=== PATIENT | male | born 1975 | race Caucasian/White ===

== ENCOUNTER → 2017-12-26 09:46 | Outpatient (CLI) | payer OTHER, SELFPAY ==
[2017-12-26 12:41] LABS: Anion Gap 7 (5-15); BUN 23 mg/dL (7-18); BUN/Creat Ratio 19.7 RATIO (10-20); Calcium,Total 8.8 mg/dL (8.5-10.1); Chloride 103 mmol/L (98-107); Cholesterol 126 mg/dL (200); Creatinine, Serum 1.17 mg/dL (0.70-1.30); EST Glomerular Filtration Rate 73 mL/min (>60); Est Glom Filt Rate - Afr Amer 88 mL/min (>60); Glucose 89 mg/dL (74-106); High Density Lipoprotein 32 mg/dL; Potassium 3.8 mmol/L (3.5-5.1); Sodium Level 139 mmol/L (136-145); Triglycerides 74 mg/dL; Very Low Density Lipoprotein 15 mg/dL (5-40)
[2017-12-26 12:46] LABS: Hemoglobin A1c 7.9 % (4.2-6.3)
== END ==
PROVIDERS: Family Provider Family Medicine; PCP Family Medicine; Visit Provider Family Medicine
DX: E11.9 Type 2 diabetes mellitus without complications (principal)
CPT/HCPCS: 36415; 80048; 80061; 83036; 84403; 84443

== ENCOUNTER 2018-03-08 11:31 | Emergency (ER) | payer OTHER, SELFPAY ==
[2018-03-08 11:32] VITALS: BP 148/92; PULSE 98; RESP 16; TEMP 36.7; O2SAT 95; BMI 38.7
--- NOTE | 2018-03-08 11:42 | CT_ITS ---
STUDY: CT ABDOMEN AND PELVIS WITHOUT CONTRAST REASON FOR EXAM: Male, 42 years old. Left flank pain. RADIATION DOSAGE (If Supplied By Facility): CTDIvol = ( 14.80 ) mGy, DLP = ( 796.35 ) mGycm TECHNIQUE: Transaxial images were obtained from the dome of the diaphragm to the symphysis pubis without oral contrast, and without intravenous contrast. Sagittal and coronal images were reconstructed. Individualized dose optimization techniques were used for this CT. COMPARISON: None. FINDINGS: The visualized lung bases are unremarkable. The visualized portions of the heart are within normal limits. Normal liver. Normal gallbladder and extrahepatic biliary system. Normal spleen. Normal pancreas. Normal bilateral adrenal glands. Normal right kidney. Left kidney shows mild hydronephrosis. Mild left hydroureter. There is a 5 mm distal left ureteral calculus at the pelvic brim, seen on axial image 131 and coronal image 58. Normal visualized stomach. Normal small intestine. Normal colon. The appendix is visualized and appears normal. Normal abdominal aorta. Normal inferior vena cava. Normal retroperitoneum. Normal urinary bladder. Normal abdominal wall. Degenerative changes of the disc at L5-S1, otherwise normal osseous structures. CT/Abdomen/Pelvis without Cont IMPRESSION: 5 mm distal left ureteral calculus causing obstruction of the left kidney and collecting system. Electronically Signed: Rolando Fox MD at 12:26 EDT , Service support ,
--- NOTE | 2018-03-08 11:43 | ED.DCSUM_ITS ---
- ER Visit Summary Date of Service: 03/08/18 Chief Complaint: Left-sided flank pain History of Present Illness: The patient is a 42 M presents to the emergency department with left-sided flank pain. Patient had the symptoms for the past 18 hours. He states it comes in waves. States pain gets very severe and will get nauseated. He has had no vomiting. He went to urgent care and there was blood in his urine. He has no history of kidney stone. He denies any history of abdominal surgery. He is an insulin-dependent diabetic but is otherwise healthy. Physical Examination: Vital signs reviewed General: Well-nourished, well-developed Head: Normocephalic, atraumatic Eyes: Pupils equal and reactive, extraocular muscles intact Neck, supple, no lymphadenopathy Heart: Regular rate and rhythm Respiratory: No distress, clear bilaterally Abdomen: Soft, nontender, nondistended, no peritoneal signs Back: Nontender Extremities: Nontender, no edema, no cords Skin: Normal color no rash Neuro: Alert and oriented, no focal or lateralizing deficits Test Results: [] Emergency Department Course and Treatment: I was able to review the patient's urine from urgent care. There was blood, but no evidence of infection. The patient declined any analgesics. Screening labs were obtained. Patient underwent CT of the abdomen and pelvis. This appears if he has a 4 mm stone towards the distal ureter. There is mild hydronephrosis. The patient remains pain-free. At this time, I do feel that he is safe for outpatient therapy. He will be given prescription for analgesics, antiemetics, and Flomax. He will be given outpatient urology follow-up. I did certified alcohol drug counselor him that if his pain worsens , he has a fever, or has change in symptoms he should be reevaluated. He is comfortable with this plan of care. Treatment Plan: [] Disposition: Charge Impression: 1. 4 mm left-sided urolithiasis This note was generated with [employer] dictation software. It may contain incorrect words, spelling, and punctuation that were not noted in review of the chart prior to signing ED Disposition - Plan for ED Patient: Chief Complaint: Flank Pain Instructions: ED Stone Renal W Colic Prescriptions: Hydrocodone Bitart/Apap 5-325 [Garfield 5MG-325MG] 1 tab PO Q6H PRN PRN 3 Days #10 tab PRN Reason: Pain Ondansetron [Zofran Odt] 4 mg PO Q8H PRN PRN #10 tab PRN Reason: Nausea Tamsulosin HCl [Flomax] 0.4 mg PO DAILY #7 cap Referrals: Fabio Pruitt MD [STAFF PHYSICIAN] - 3-5 Days if not improving
[2018-03-08] MEDS: 0.9% Normal Saline 1,000 ML 250 ML IV (11:54)
[2018-03-08 12:01] LABS: Absolute Lymphocyte Count 1.29 X10^3/ul (0.83-4.51); Absolute Neutrophil Count 6.9 X10^3/uL (2.0-7.7); Basophil# 0.02 X10^3/uL; Basophil% 0.2 % (0-1); Eosinophil# 0.07 X10^3/uL; Eosinophils% 0.8 % (0-5); Hematocrit 49.6 % (40-54); Hemoglobin 16.9 g/dl (13.0-16.5); Lymphocyte # 1.29 X10^3/ul (4.0); Lymphocyte % 14.3 % (19-41); Mean Corp Hgb Conc 34.1 g/gl (32-36); Mean Corpuscular Hgb 28.1 pg (27.0-32.0); Mean Corpuscular Volume 82.4 fL (80-94); Mean Platelet Vol. 9.8 fl (6.2-12.0); Monocyte# 0.69 X10^3/uL; Monocyte% 7.7 % (0-10); Neutrophil # 6.93 X10^3/uL (2.7-7.7); Neutrophil % 76.9 % (47-70); Platelet Count 217 K/mm3 (150-450); RBC Distribution Width CV 13.2 % (11.6-14.6); RBC Distribution Width SD 39.7 fl (35.1-43.9); Red Blood Count 6.02 M/mm3 (4.6-6.2)
[2018-03-08 12:02] LABS: POSITIVE COUNT NO; POSITIVE DIFFERENTIAL NO; POSITIVE MORPHOLOGY NO
[2018-03-08 12:21] LABS: Anion Gap 8 (5-15); BUN 21 mg/dL (7-18); BUN/Creat Ratio 17.6 RATIO (10-20); Calcium,Total 9.1 mg/dL (8.5-10.1); Chloride 104 mmol/L (98-107); Creatinine, Serum 1.19 mg/dL (0.70-1.30); EST Glomerular Filtration Rate 71 mL/min (>60); Est Glom Filt Rate - Afr Amer 86 mL/min (>60); Estimated Creatinine Clearance 80.87 ml/min; Glucose 75 mg/dL (74-106); Potassium 3.8 mmol/L (3.5-5.1); Sodium Level 144 mmol/L (136-145)
== END 2018-03-08 12:44 | disposition home or self-care (01) ==
PROVIDERS: Emergency Provider Emergency Medicine; Family Provider Family Medicine; PCP Family Medicine
DX: N13.2 Hydronephrosis with renal and ureteral calculous obstruction (principal); R31.9 Hematuria, unspecified; E11.9 Type 2 diabetes mellitus without complications; Z79.82 Long term (current) use of aspirin; Z79.4 Long term (current) use of insulin; Z79.899 Other long term (current) drug therapy
CPT/HCPCS: 74176; 80048; 85025; 96360; 99283; J7030

== ENCOUNTER → 2018-03-19 10:35 | Outpatient (CLI) | payer OTHER, SELFPAY ==
--- NOTE | 2018-03-19 10:41 | RAD_ITS ---
STUDY: X-RAY - ABDOMEN/PELVIS REASON FOR EXAM: Male, 42 years old. Left kidney stone. TECHNIQUE: AP COMPARISON: CT dated March 18, 2018 FINDINGS: There is a stable device projecting over the left mid abdomen may be secondary to a neurostimulator. There are no calculi within the expected region of the left kidney. Projecting over the urinary bladder left of midline there is a 3.5 mm calcific density present. There is an unremarkable bowel gas pattern. There is no demonstrated free abdominal air. The visualized liver, spleen and kidneys are grossly normal in size and morphology. Normal soft tissue structures. Normal visualized osseous structures. RAD/Abdomen Single View IMPRESSION: 3.5 mm calcific density projecting over the urinary bladder left of midline may reflect underlying bladder calculus. Electronically Signed: Monique Lagos MD at 23:47 EDT Tel , Service support ,
== END ==
PROVIDERS: Family Provider Family Medicine; PCP Family Medicine; Visit Provider Urology
DX: N20.0 Calculus of kidney (principal)
CPT/HCPCS: 74018

== ENCOUNTER 2018-03-22 12:01 | Emergency (ER) | payer OTHER, SELFPAY ==
[2018-03-22 12:02] VITALS: BP 150/74; PULSE 90; RESP 18; TEMP 36.9; O2SAT 98; BMI 38.4
--- NOTE | 2018-03-22 12:41 | RAD_ITS ---
STUDY: X-RAY - ABDOMEN/PELVIS REASON FOR EXAM: Male, 42 years old. History of bladder stone. Burning sensation. TECHNIQUE: Two AP supine views of the abdomen and pelvis. COMPARISON: Comparison is made with prior study dated March 19, 2018. FINDINGS: Normal visualized lung bases. There is an unremarkable bowel gas pattern. The visualized liver, spleen and kidneys are grossly normal in size and morphology. Once again, a 3.5 mm calcification is seen in the left medial pelvis. This is unchanged. This may represent a small calculus in the bladder. Normal visualized osseous structures. RAD/Abdomen Single View IMPRESSION: Findings suggestive of a 3 mm calculus in the left side of the urinary bladder. This is unchanged. Electronically Signed: Camden Carter MD at 13:48 EDT Tel [phone], Service support ,
[2018-03-22 12:55] LABS: Bacteria 0 SEEN /hpf (None Seen); Mucous, Urine 0 SEEN /hpf (<or=2+); Squamous Epithelial Cells - UA 0 SEEN /hpf (0-5)
[2018-03-22 13:04] LABS: Color, Urine Yellow (Yellow); Glucose, Dipstick 100 mg/dl (Normal); Ketone-Dipstick Negative (Negative); Leukocyte Esterase-Dipstick 25 /ul (Negative); Nitrite-Dipstick Negative (Negative); Occult Blood-Urine 150 /ul (Negative); Protein-Dipstick Negative (Negative); Specific Gravity, Urine 1.015 (1.002-1.030); Urine Bilirubin Dipstick Negative (Negative); Urine Clarity Clear (Clear); Urine Urobilinogen Normal (Normal)
[2018-03-22 13:06] LABS: Absolute Lymphocyte Count 1.58 X10^3/ul (0.83-4.51); Absolute Neutrophil Count 5.7 X10^3/uL (2.0-7.7); Basophil# 0.02 X10^3/uL; Basophil% 0.2 % (0-1); Eosinophil# 0.15 X10^3/uL; Eosinophils% 1.8 % (0-5); Hematocrit 49.1 % (40-54); Lymphocyte # 1.58 X10^3/ul (4.0); Lymphocyte % 19.2 % (19-41); Mean Corp Hgb Conc 34.6 g/gl (32-36); Mean Corpuscular Volume 80.8 fL (80-94); Mean Platelet Vol. 9.8 fl (6.2-12.0); Monocyte# 0.73 X10^3/uL; Monocyte% 8.9 % (0-10); Neutrophil # 5.73 X10^3/uL (2.7-7.7); Neutrophil % 69.8 % (47-70); POSITIVE COUNT NO; POSITIVE DIFFERENTIAL NO; POSITIVE MORPHOLOGY NO; Platelet Count 222 K/mm3 (150-450); RBC Distribution Width CV 13.2 % (11.6-14.6); RBC Distribution Width SD 38.7 fl (35.1-43.9); Red Blood Count 6.08 M/mm3 (4.6-6.2); White Blood Count 8.2 K/mm3 (4.4-11.0)
[2018-03-22 13:15] LABS: White Blood Cells 5-10 SEEN /hpf (0-5)
[2018-03-22 13:16] LABS: Red Blood Cells-Urine 5-10 SEEN /hpf (0-5)
[2018-03-22 13:17] LABS: Anion Gap 5 (5-15); BUN 20 mg/dL (7-18); BUN/Creat Ratio 17.4 RATIO (10-20); Calcium,Total 9.1 mg/dL (8.5-10.1); Chloride 106 mmol/L (98-107); Creatinine, Serum 1.15 mg/dL (0.70-1.30); EST Glomerular Filtration Rate 74 mL/min (>60); Est Glom Filt Rate - Afr Amer 89 mL/min (>60); Estimated Creatinine Clearance 83.68 ml/min; Glucose 91 mg/dL (74-106); Potassium 4.3 mmol/L (3.5-5.1); Sodium Level 142 mmol/L (136-145)
--- NOTE | 2018-03-22 13:48 | ED.VISSUMM ---
- ER Visit Summary Date of Service: 03/22/18 Chief Complaint: dysuria History of Present Illness: The patient is a 42 M presents with dysuria for a few days. He had a right-sided kidney stone which passed into his bladder, apparently it is not passing into his urine. He does not have hematuria on self-examination. He has quite a bit of burning around his urethra. He has no flank pain, abdominal pain, fever or chills. Currently he is much improved. Physical Examination: Not appear in acute distress. Moist mucous membranes, no obvious facial deformity No C-spine tenderness supple neck. Regular rate and rhythm without any obvious murmurs Clear lungs bilaterally speaking in full sentences without any obvious respiratory distress Abdomen soft and nontender no guarding or rebound Moves all extremities without any difficulty or pain. Skin does not show any obvious rashes or lesions, no trauma. Alert oriented ?3 with no gross focal deficit Emergency Department Course and Treatment: Analysis shows some blood, glucose, leukoesterase, because of that he is a diabetic as well as having some blood in his urine and with leukoesterase I will treat him for an urinary tract infection. I will put him on Pyridium for his symptoms. He is to come back if he has fever or chills or symptoms get worse. I have Dr. Mayo on page to discuss the patient for close follow-up. Disposition: Discharge stable condition Impression: Bladder stone Urinary tract infection This note was generated with [employer] dictation software. It may contain incorrect words, spelling, and punctuation that were not noted in review of the chart prior to signing ED Disposition - Plan for ED Patient: Disposition: Home or Assisted Living Chief Complaint: Complaint Instructions: ED UTI Cystitis Male Prescriptions: Tamsulosin HCl [Flomax] 0.4 mg PO DAILY #5 cap Phenazopyridine HCl [Pyridium] 200 mg PO BID #10 tab Smz/Tmp Ds [Bactrim Ds] 1 tab PO BID #20 tab Referrals: Fabio Pruitt MD [STAFF PHYSICIAN] - 2 Days
--- NOTE | 2018-03-22 13:56 | ED.DCSUM_ITS ---
- ER Visit Summary Date of Service: 03/22/18 Chief Complaint: dysuria History of Present Illness: The patient is a 42 M presents with dysuria for a few days. He had a right-sided kidney stone which passed into his bladder, apparently it is not passing into his urine. He does not have hematuria on self -examination. He has quite a bit of burning around his urethra. He has no flank pain, abdominal pain, fever or chills. Currently he is much improved. Physical Examination: Not appear in acute distress. Moist mucous membranes, no obvious facial deformity No C-spine tenderness supple neck. Regular rate and rhythm without any obvious murmurs Clear lungs bilaterally speaking in full sentences without any obvious respiratory distress Abdomen soft and nontender no guarding or rebound Moves all extremities without any difficulty or pain. Skin does not show any obvious rashes or lesions, no trauma. Alert oriented ?3 with no gross focal deficit Emergency Department Course and Treatment: Analysis shows some blood, glucose, leukoesterase, because of that he is a diabetic as well as having some blood in his urine and with leukoesterase I will treat him for an urinary tract infection. I will put him on Pyridium for his symptoms. He is to come back if he has fever or chills or symptoms get worse. I have Dr. Mayo on page to discuss the patient for close follow-up. Disposition: Discharge stable condition Impression: Bladder stone Urinary tract infection This note was generated with [employer] dictation software. It may contain incorrect words, spelling, and punctuation that were not noted in review of the chart prior to signing ED Disposition - Plan for ED Patient: Disposition: Home or Assisted Living Chief Complaint: Complaint Instructions: ED UTI Cystitis Male Prescriptions: Tamsulosin HCl [Flomax] 0.4 mg PO DAILY #5 cap Phenazopyridine HCl [Pyridium] 200 mg PO BID #10 tab Smz/Tmp Ds [Bactrim Ds] 1 tab PO BID #20 tab Referrals: Fabio Pruitt MD [STAFF PHYSICIAN] - 2 Days
[2018-03-22] MEDS: oxyCODONE 5 MG Tablet PO (14:08)
[2018-03-22 14:12] VITALS: PULSE 85; RESP 17; O2SAT 97
== END 2018-03-22 14:13 | disposition home or self-care (01) ==
PROVIDERS: Emergency Provider Emergency Medicine; Family Provider Family Medicine; PCP Family Medicine
DX: N39.0 Urinary tract infection, site not specified (principal); N21.0 Calculus in bladder; E10.9 Type 1 diabetes mellitus without complications; Z79.82 Long term (current) use of aspirin; Z79.4 Long term (current) use of insulin; Z79.899 Other long term (current) drug therapy
CPT/HCPCS: 74018; 80048; 81001; 85025; 99284

== ENCOUNTER → 2018-05-15 09:48 | Outpatient (CLI) | payer OTHER, SELFPAY ==
[2018-05-15 12:45] LABS: AST(SGOT) 21 U/L (15-37); Alanine Aminotransfer ALT/SGPT 36 U/L (16-61); Albumin, Serum 3.8 g/dL (3.2-5.0); Alkaline Phosphatase 64 U/L (45-117); Anion Gap 11 (5-15); BUN 19 mg/dL (7-18); BUN/Creat Ratio 18.8 RATIO (10-20); Bilirubin, Direct 0.16 mg/dL (0.00-0.30); Calcium,Total 8.9 mg/dL (8.5-10.1); Chloride 103 mmol/L (98-107); Cholesterol 104 mg/dL (200); Creatinine, Serum 1.01 mg/dL (0.70-1.30); EST Glomerular Filtration Rate 86 mL/min (>60); Est Glom Filt Rate - Afr Amer 104 mL/min (>60); Globulin 3.6 g/dL (2.2-4.2); Glucose 189 mg/dL (74-106); High Density Lipoprotein 35 mg/dL; Potassium 4.4 mmol/L (3.5-5.1); Protein, Total 7.4 g/dL (6.4-8.2); Sodium Level 141 mmol/L (136-145); Triglycerides 90 mg/dL; Very Low Density Lipoprotein 18 mg/dL (5-40)
[2018-05-15 13:05] LABS: Hemoglobin A1c 7.7 % (4.2-6.3)
[2018-05-15 13:07] LABS: Microalbumin,Random Urine 7.3 mg/L (NO RANGE EST.); Microalbumin:Creatinine Ratio 5.3 mg/g CRE (<30 mg/g CRE)
== END ==
PROVIDERS: Family Provider Family Medicine; PCP Family Medicine; Visit Provider Family Medicine
DX: E11.9 Type 2 diabetes mellitus without complications (principal); E29.1 Testicular hypofunction
CPT/HCPCS: 36415; 80048; 80061; 80076; 82043; 82570; 83036; 84403

== ENCOUNTER 2018-05-23 04:57 | Emergency (ER) | payer OTHER, SELFPAY ==
[2018-05-23 04:57] VITALS: BP 174/103; PULSE 139; RESP 24; TEMP 37.1; O2SAT 97; BMI 38.9
--- NOTE | 2018-05-23 05:10 | ED.DCSUM_ITS ---
- ER Visit Summary Date of Service: 05/23/18 Chief Complaint: I choked on my vomit and now short of breath History of Present Illness: The patient is a 42 M stated he choked on his vomit just prior to arrival. He woke up and had vomit in his mouth and choked on it and thinks he might have aspirated it. He is having some shortness of breath with expiratory wheezes. Happened just prior to arrival at home. He he thought perhaps he aspirated. He has had this in the past but never this bad. No home treatment. No chest pain. States he was sweating Physical Examination: Vital signs reviewed General: Well-nourished well-developed Head: Normocephalic atraumatic Eyes: Pupils equal round and reactive to light extraocular movements intact ENT: TMs clear no hemotympanum no trauma Neck: Nontender full range of motion Cardiovascular: Regular tachycardia with normal rhythm no murmurs normal S1-S2 Respiratory: Mild distress with tachypnea. Expiratory wheezes at the end of the phase. Speaking full sentences Abdomen: Soft nontender nondistended normal bowel sounds no masses Back: Nontender no CVA tenderness Extremities: Nontender active range of motion ?4 extremities no trauma Skin: Normal color no trauma. Diffuse sweatiness Neuro alert oriented cranial nerves II through XII intact normal strength sensation reflexes Test Results: [] Emergency Department Course and Treatment: [] Patient given DuoNeb aerosol x1 and albuterol nebulizer x1 with good resolution of wheezing. Heart rate came down to 102. He is no longer sweating or feeling shaky. Lab work shows a glucose 217. Troponin negative. CBC normal. Chest x-ray shows a very small little platelike area of suspected atelectasis. No aspiration infiltrates. At this time patient was given a prescription for albuterol at home. He is also be given prednisone prescription if he does have wheezing tomorrow he would take this. I do not think he needs antibiotics. Treatment Plan: [] Disposition: [] Impression: [] Aspiration pneumonitis This note was generated with [employer] dictation software. It may contain incorrect words, spelling, and punctuation that were not noted in review of the chart prior to signing ED Disposition - Plan for ED Patient: Chief Complaint: Shortness of Breath Referrals: Walt Marinelli MD [Primary Care Provider] -
[2018-05-23] MEDS: Ipratropium/Albuterol Sulfate 3 ML AMPUL.NEB INHALATION (05:20)
[2018-05-23 05:22] VITALS: PULSE 107; RESP 16
[2018-05-23 05:24] LABS: Absolute Lymphocyte Count 2.25 X10^3/ul (0.83-4.51); Absolute Neutrophil Count 6.6 X10^3/uL (2.0-7.7); Basophil# 0.03 X10^3/uL; Basophil% 0.3 % (0-1); Hematocrit 45.4 % (40-54); Hemoglobin 16.2 g/dl (13.0-16.5); Lymphocyte # 2.25 X10^3/ul (4.0); Lymphocyte % 22.3 % (19-41); Mean Corp Hgb Conc 35.7 g/gl (32-36); Mean Corpuscular Hgb 28.9 pg (27.0-32.0); Mean Corpuscular Volume 81.1 fL (80-94); Mean Platelet Vol. 10.2 fl (6.2-12.0); Monocyte# 0.98 X10^3/uL; Monocyte% 9.7 % (0-10); Neutrophil # 6.58 X10^3/uL (2.7-7.7); Neutrophil % 65.4 % (47-70); Platelet Count 270 K/mm3 (150-450); RBC Distribution Width CV 13.4 % (11.6-14.6); RBC Distribution Width SD 39.9 fl (35.1-43.9); White Blood Count 10.1 K/mm3 (4.4-11.0)
[2018-05-23 05:25] LABS: POSITIVE COUNT NO; POSITIVE DIFFERENTIAL NO; POSITIVE MORPHOLOGY NO
[2018-05-23 05:57] LABS: Anion Gap 11 (5-15); BUN 24 mg/dL (7-18); BUN/Creat Ratio 19.8 RATIO (10-20); Calcium,Total 8.7 mg/dL (8.5-10.1); Chloride 105 mmol/L (98-107); Creatinine, Serum 1.21 mg/dL (0.70-1.30); EST Glomerular Filtration Rate 70 mL/min (>60); Est Glom Filt Rate - Afr Amer 84 mL/min (>60); Estimated Creatinine Clearance 79.53 ml/min; Glucose 217 mg/dL (74-106); Potassium 4.1 mmol/L (3.5-5.1); Sodium Level 143 mmol/L (136-145)
[2018-05-23] MEDS: Albuterol 2.5 MG/3 ML VIAL.NEB. INHALATION (06:03)
[2018-05-23 06:04] VITALS: PULSE 101; RESP 16
--- NOTE | 2018-05-23 06:14 | ED.DEP ---
ED Disposition - Plan for ED Patient: Disposition: Home or Assisted Living Chief Complaint: Shortness of Breath Instructions: ED Wheezing Prescriptions: Albuterol Inhaler [Ventolin Hfa] 2 - 4 puff INHALATION Q4H PRN PRN #7 inhaler PRN Reason: Wheezing Prednisone [Deltasone] 60 mg PO DAILY #15 tab Referrals: Walt Marinelli MD [Primary Care Provider] -
[2018-05-23 06:21] VITALS: BP 139/91; PULSE 105; RESP 18; O2SAT 94
--- NOTE | 2018-05-24 11:36 | CM.ED ---
ED CALLBACK: Follow-up call placed to patient. Patient states I feel great today. Patient denies any needs at this time.
== END 2018-05-23 06:21 | disposition home or self-care (01) ==
PROVIDERS: Emergency Provider Emergency Medicine; Family Provider Family Medicine; PCP Family Medicine
DX: J69.0 Pneumonitis due to inhalation of food and vomit (principal); E11.9 Type 2 diabetes mellitus without complications; K21.9 Gastro-esophageal reflux disease without esophagitis; Z79.82 Long term (current) use of aspirin; Z79.4 Long term (current) use of insulin; Z79.899 Other long term (current) drug therapy; Z87.442 Personal history of urinary calculi
CPT/HCPCS: 71046; 80048; 84484; 85025; 93005; 94640; 99285; A4216

== ENCOUNTER → 2018-08-26 12:18 | Outpatient (CLI) | payer OTHER, SELFPAY ==
--- OUTSIDE RECORDS SUMMARY | 2018-10-19 18:38 | XMS RPT_ITS ---
:1975 Author Organization OH[employer] Support Name Relationship Address Phone ROSI ACOSTA Unavailable [address] [facility] + [place] [address] [facility] Unavailable [address] + [place] [address] DAVE ROSI Unavailable [address] [facility] [address] + [place] [address] [facility] Unavailable [address] + [place] [address] DAVE, ROSI Unavailable [address] [facility] [address] + [place] [address] [facility] Unavailable [address] + [place] [address] DAVE, ROSI Unavailable [address] [facility] [address] [address] + [place] [address] [facility] Unavailable [address] + [place] [address] DAVE, ROSI Unavailable [address] [facility] [address] + [place] [address] [facility] Unavailable [address] + [place] [address] DAVE, ROSI Unavailable [address] + [place] [address] [facility] Unavailable [address] + [place] [address] DAVE, ROSI Unavailable [address] [facility] [address] + [place] [address] [facility] Unavailable [address] + [place] [address] DAVE, ROSI Unavailable [address] [facility] [address] + [place] [address] [facility] Unavailable [address] + [place] [address] ROSI ACOSTA Unavailable [address] [facility] + [place] [address] [facility] Unavailable [address] + [place] [address] Care Team Providers Name Role Phone Walt Marinelli Attending Unavailable Marinelli, Walt Primary Care Unavailable Marinelli, Walt Attending Unavailable Marinelli, Walt Primary Care Unavailable Dwight Alonso Attending Unavailable Marinelli, Walt Referring Unavailable Marinelli, Walt Primary Care Unavailable Marinelli, Walt Primary Care Unavailable Pierre Rodriguez Attending Unavailable Sonal, Fabio Barbour Attending Unavailable Sonal, Fabio Barbour Referring Unavailable Marinelli, Walt Primary Care Unavailable Marinelli, Walt Primary Care Unavailable Cornici, Walt Attending Unavailable Marinelli, Walt Attending Unavailable Marinelli, Walt Primary Care Unavailable Marinelli, Walt Primary Care Unavailable Raul Haque Attending Unavailable Marinelli, Walt Attending Unavailable Marinelli, Walt Primary Care Unavailable PROBLEMS PROBLEMS DATE TYPE CONDITION / CODE ATTENDING STATUS SOURCE 08/26/2018 Unknown 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 / Community E29.1(ICD-10) Hospital Repository 03/19/2018 Unknown N20.0 - Calculus of Sonal Fabio Active [place] kidney / [facility]m Community N20.0(ICD-10) Hospital Repository 03/08/2018 Unknown N23 - Unspecified Dwight Alonso Active [place] renal colic / Community N23(ICD-10) Hospital Repository 12/26/2017 Unknown E11.9 - Type 2 Marinelli, Walt Active [place] diabetes mellitus Community without Hospital complications / Repository E11.9(ICD-10) PROCEDURES PROCEDURES No Procedure Records FoundRESULTS RESULTS TESTOSTERONE, SERUM TOTAL Collected: 08/26/2018 Status: F Source: [place] 12:[facility] TYPE CODE TESTS RESULT OUT OF REFERENCE UNITS RANGE LAB L509.3000 ng/dL Testosterone Normal 445.48 Result Comment: NORMAL REFERENCE RANGES MALE AGE <50 123.06 - 813.86 ng/dL MALE AGE >50 89.98 - 780.10 ng/dL FEMALE PREMENOPAUSE AGE 21 - 60 9.01 - 47.94 ng/dL FEMALE POSTMENOPAUSE AGE 45 - 89 <7.00 - 45.62 ng/dL REFERENCE RANGE AND METHODOLOGY CHANGED 09/12/2017 Performed By: #### L509.3000 #### [facility] [address] [place], [address] 12 LEAD ELECTROCARDIOGRAM Observed: 05/24/2018 Status: F Source: [place] 1:31 PM [facility] REPOSITORY [facility] Cardiovascular Services [address] [place] [address] 12 Lead EKG 05/23/18 0513 MR#: [id number] Acct: [id number] Name: DAVESOFIAPAULINA Dheeraj Rep #: [id number] : 1975 42 From: Walt Aguilera MD Attending Dr: Status: DEP ER Ordering Dr: Raul Haque MD Date: 05/23/18 Location: ED Sex: M C Admitted: Test Reason : SOB Blood Pressure : / mmHG Vent. Rate : 107 BPM Atrial Rate : 107 BPM P-R Int : 146 ms QRS Dur : 102 ms QT Int : 344 ms P-R-T Axes : 069 003 025 degrees QTc Int : 459 ms Sinus tachycardia Otherwise normal ECG Confirmed by WILLY HERBERT, WALT ([id number]), primer expeditor and drier SEBLE KINCAID ([id number]) on 05/24/2018 1:30:49 PM Referred By: NEVAEH Confirmed By:WALT AGUILERA MD 05/24/18 1330 Date Walt Aguilera MD CC: Raul Haque MD; Walt Marinelli MD Signed EMERGENCY DEPARTMENT Observed: 05/23/2018 Status: F Source: [place] SUMMARY 6:48 AM [facility] REPOSITORY [facility] Medical Records Department [address] [place] [address] Emergency Department Summary 05/23/18 0508 MR#: [id number] Acct: [id number] Name: PAULINA ACOSTA Rep #: [id number] : 1975 42 From: Raul Haque MD PCP: Walt Marinelli MD Status: DEP ER - ER Visit Summary Date of Service: 05/23/18 Chief Complaint: I choked on my vomit and now short of breath History of Present Illness: The patient is a 42 M stated he choked on his vomit just prior to arrival. He woke up and had vomit in his mouth and choked on it and thinks he might have aspirated it. He is having some shortness of breath with expiratory wheezes. Happened just prior to arrival at home. He he thought perhaps he aspirated. He has had this in the past but never this bad. No home treatment. No chest pain. States he was sweating Physical Examination: Vital signs reviewed General: Well-nourished well-developed Head: Normocephalic atraumatic Eyes: Pupils equal round and reactive to light extraocular movements intact ENT: TMs clear no hemotympanum no trauma Neck: Nontender full range of motion Cardiovascular: Regular tachycardia with normal rhythm no murmurs normal S1-S2 Respiratory: Mild distress with tachypnea. Expiratory wheezes at the end of the phase. Speaking full sentences Abdomen: Soft nontender nondistended normal bowel sounds no masses Back: Nontender no CVA tenderness Extremities: Nontender active range of motion 4 extremities no trauma Skin: Normal color no trauma. Diffuse sweatiness Neuro alert oriented cranial nerves II through XII intact normal strength sensation reflexes Test Results: [] Emergency Department Course and Treatment: [] Patient given DuoNeb aerosol x1 and albuterol nebulizer x1 with good resolution of wheezing. Heart rate came down to 102. He is no longer sweating or feeling shaky. Lab work shows a glucose 217. Troponin negative. CBC normal. Chest x-ray shows a very small little platelike area of suspected atelectasis. No aspiration infiltrates. At this time patient was given a prescription for albuterol at home. He is also be given prednisone prescription if he does have wheezing tomorrow he would take this. I do not think he needs antibiotics. Treatment Plan: [] Disposition: [] Impression: [] Aspiration pneumonitis This note was generated with [employer] dictation software. It may contain incorrect words, spelling, and punctuation that were not noted in review of the chart prior to signing ED Disposition - Plan for ED Patient: Chief Complaint: Shortness of Breath Referrals: Walt Marinelli MD [Primary Care Provider] - What to do if you have Problems For any increased pain, shortness of breath, bleeding, nausea or vomiting, chest pain, or any unexpected problems, contact your Primary Care Provider. Call [facility] ([phone]) or report to the closest Emergency Room. Call 911 if necessary. 05/23/18647 <Electronically signed by Raul Haque MD> Date Raul Haque MD Cosigner Signature (If Indicated): Date CC: Walt Marinelli MD DISCHARGE INSTRUCTION Observed: 05/23/2018 Status: F Source: [place] 6:48 AM [facility] REPOSITORY [facility] Medical Records Department [address] [facility] [place] [address] Discharge Instruction 05/23/18613 MR#: [id number] Acct: [id number] Name: PAULINA ACOSTA Rep #: [id number] : 1975 42 From: Raul Haque MD PCP: Walt Marinelli MD Status: DEP ER ED Disposition - Plan for ED Patient: Disposition: Home or Assisted Living Chief Complaint: Shortness of Breath Instructions: ED Wheezing Prescriptions: Albuterol Inhaler [Ventolin Hfa] 2 - 4 puff INHALATION Q4H PRN PRN #7 inhaler PRN Reason: Wheezing Prednisone [Deltasone] 60 mg PO DAILY #15 tab Referrals: Walt Marinelli MD [Primary Care Provider] - What to do if you have Problems For any increased pain, shortness of breath, bleeding, nausea or vomiting, chest pain, or any unexpected problems, contact your Primary Care Provider. Call [facility] ([phone]) or report to the closest Emergency Room. Call 911 if necessary. 05/23/18647 <Electronically signed by Raul Haque MD> Date Raul Haque MD Cosigner Signature (If Indicated): Date CC: Walt Marinelli MD CBC W/DIFF, AUTOMATED Collected: 05/23/2018 Status: F Source: [place] 5:15 AM [facility] REPOSITORY TYPE CODE TESTS RESULT OUT OF RANGE REFERENCE UNITS LAB L100.1000 4.4-11.0 K/mm3 Normal WBC 10.1 LAB L100.1200 4.6-6.2 M/mm3 Normal RBC 5.60 LAB L100.1300 13.0-16.5 g/dl Normal HGB 16.2 LAB L100.1400 40-54 % Normal HCT 45.4 LAB L100.1500 80-94 fL Normal MCV 81.1 LAB L100.1600 27.0-32.0 pg Normal MCH 28.9 LAB L100.1700 32-36 g/gl Normal MCHC 35.7 LAB L100.1810 11.6-14.6 % Normal RDW CV 13.4 LAB L100.1820 35.1-43.9 fl Normal RDW SD 39.9 LAB L100.1900 150-450 K/mm3 Normal PLT 270 LAB L100.2000 6.2-12.0 fl Normal MPV 10.2 LAB L100.2100 47-70 % Normal NEUT% 65.4 LAB L100.2200 19-41 % Normal LY% 22.3 LAB L100.2300 0-10 % Normal MONO% 9.7 LAB L100.2400 0-5 % Normal EO% 2.0 LAB L100.2500 0-1 % Normal BASO% 0.3 LAB L100.2550 0.0-0.9 % Normal IM GRAN % 0.300 Result Comment: IG% - Immature Granulocytes (promyelocytes, myelocytes and metamyelocytes) > 1% indicates that a LEFT SHIFT is Present. LAB L100.2620 2.0-7.7 X10 3/uL Normal Absolute Neut 6.6 LAB L100.2720 0.83-4.51 X10 3/ul Normal Absolute Lymph 2.25 Performed By: #### L100.0100 #### [facility] [address] [place], [address] BASIC METABOLIC Collected: 05/23/2018 Status: F Source: [place] PROFILE (BMP) 5:15 AM [facility] REPOSITORY TYPE CODE TESTS RESULT OUT OF RANGE REFERENCE UNITS LAB L501.0100 74-106 mg/dL High GLU 217 Result Comment: Glucose result greater than or equal to 200 mg/dL suggests DIABETES MELLITUS per A.D.A. criteria. Please note revised GLUCOSE reference range effective 2017. LAB L501.1000 7-18 mg/dL High BUN 24 LAB L501.1100 0.70-1.30 mg/dL Normal CREAT,SERUM 1.21 Result Comment: The validity of the calculated GFR AND GFRAA in patients over 70 years has not been determined. Clinical correlation is essential. LAB L501.1110 >60 mL/min Normal EST GFR 70 Result Comment: Non- GFR Calc LAB L501.1115 >60 mL/min Normal EST GFR - AA 84 Result Comment: GFR Calc LAB L501.1255 ml/min Normal Estimated CRCL 79.53 LAB L501.1300 10-20 RATIO Normal BUN/CRE 19.8 LAB L501.2200 8.5-10 mg/dL Normal .1 CA 8.7 LAB L501.5300 136-14 mmol/L Normal 5 NA 143 LAB L501.5600 3.5-5. mmol/L Normal 1 K 4.1 Result Comment: Moderate Hemolysis, Result may be falsely increased. LAB L501.5900 98-107 mmol/L Normal CL 105 LAB L501.6100 21.0-32.0 mmol/L Normal CO2 27.0 LAB L501.6200 5-15 Normal GAP 11 Performed By: #### L500.2500, L501.4010 #### [facility] [address] [place], [address] TROPONIN-I Collected: 05/23/2018 Status: F Source: [place] 5:15 AM [facility] REPOSITORY TYPE CODE TESTS RESULT OUT OF RANGE REFERENCE UNITS LAB L501.4010 <0.045 ng/mL Normal < 0.015 TROPONIN-I Result Comment: TROPONIN-I EXPECTED VALUES <0.045 Negative 0.045 - 0.590 Consistent with Cardiac Damage > OR = 0.600 Critical Value Not every elevated troponin is indicative of KS. These values should be used with clinical judgement in examining the patient's clinical picture for diagnosis. To establish a diagnosis of KS versus myocardial injury, there must be a demonstrated rise and/or fall in the troponin values, in addition to ischemic symptoms, EKG changes, new regional wall motion abnormality, and/or angiographical evidence. PLEASE NOTE: REFERENCE RANGES EDITED 18 Performed By: #### L500.2500, L501.4010 #### [facility] [address] [place], [address] CHEST PA AND LATERAL Observed: 05/23/2018 Status: F Source: [place] 5:07 AM [facility] REPOSITORY [facility] Imaging Services [address] [place] [address] Chest PA and Lateral MR#: [id number] Acct: [id number] Name: PAULINA ACOSTA Rep #: [id number] : 1975 M 42 From: Odin Koroma MD PCP: aWlt Marinelli MD Status: REG ER Study: Chest PA and Lateral Date of Exam: 05/23/18 Exam# [id number] Ordering Dr: Raul Haque MD STUDY: X-RAY CHEST REASON FOR EXAM: Male, 42 years old. Possible aspiration TECHNIQUE: 2 views COMPARISON: None. FINDINGS: There is a linear density in the right lung base consistent with an area of fibrosis or platelike atelectatic change. The left lung is clear. There are no pleural effusions.. Normal visualized thoracic spine. Normal visualized ribs, clavicles, and shoulders. There is no demonstrated abnormality of the visualized soft tissue structures of the upper abdomen. RAD/Chest PA and Lateral IMPRESSION: A linear density in the right lung base consistent with an area of fibrosis or platelike atelectatic change. No acute findings in the lungs Electronically Signed: Odin Koroma, at 5:55 EDT Tel , Service support , CC: Raul Haque MD; Walt Marinelli MD Services Advisor: Signed BASIC METABOLIC Collected: 05/15/2018 Status: F Source: [place] PROFILE (BMP) 9:49 AM [facility] REPOSITORY TYPE CODE TESTS RESULT OUT OF RANGE REFERENCE UNITS LAB L501.0100 74-106 mg/dL High GLU 189 Result Comment: Fasting Glucose result greater than or equal to 126 mg/dL suggests DIABETES MELLITUS per A.D.A. criteria. Please note revised GLUCOSE reference range effective 2017. LAB L501.1000 7-18 mg/dL High BUN 19 LAB L501.1100 0.70-1.30 mg/dL Normal CREAT,SERUM 1.01 Result Comment: The validity of the calculated GFR AND GFRAA in patients over 70 years has not been determined. Clinical correlation is essential. LAB L501.1110 >60 mL/min Normal EST GFR 86 Result Comment: Non- GFR Calc LAB L501.1115 >60 mL/min Normal EST GFR - AA 104 Result Comment: GFR Calc LAB L501.1300 10-20 RATIO Normal BUN/CRE 18.8 LAB L501.2200 8.5-10.1 mg/dL CA Normal 8.9 LAB L501.5300 136-145 mmol/L NA Normal 141 LAB L501.5600 3.5-5.1 mmol/L K Normal 4.4 LAB L501.5900 98-107 mmol/L CL Normal 103 LAB L501.6100 21.0-32.0 mmol/L Normal CO2 27.0 LAB L501.6200 5-15 Normal GAP 11 Performed By: #### L500.2500, L500.3400, L500.4100 #### [facility] [address] [place], [address] LIVER PROFILE Collected: 05/15/2018 Status: F Source: [place] 9:49 AM [facility] REPOSITORY TYPE CODE TESTS RESULT OUT OF RANGE REFERENCE UNITS LAB L501.1500 6.4-8.2 g/dL Normal T PROT 7.4 LAB L501.1800 3.2-5.0 g/dL Normal ALB 3.8 LAB L501.1950 2.2-4.2 g/dL Normal GLOB 3.6 LAB L501.4100 15-37 U/L Normal AST 21 LAB L501.4305 45-117 U/L Normal ALK P 64 LAB L501.4405 16-61 U/L Normal ALT 36 LAB L501.4600 0.20-1.00 mg/dL Normal T BILI 0.50 LAB L501.4700 0.00-0.30 mg/dL Normal D BILI 0.16 Performed By: #### L500.2500, L500.3400, L500.4100 #### [facility] [address] [facility] [place], [address] LIPID PROFILE Collected: 05/15/2018 Status: F Source: [place] 9:49 AM [facility] REPOSITORY TYPE CODE TESTS RESULT OUT OF RANGE REFERENCE UNITS LAB L501.4900 200 mg/dL Normal CHOL 104 Result Comment: <200 mg/dL Desirable 200-240 mg/dL Borderline >240 mg/dL High Risk LAB L501.5000 mg/dL Normal TRIG 90 Result Comment: The drugs N-Acetylcysteine and Metamizole may falsely depress this assay. Serum Triglycerides Reference Interval Normal <150 mg/dL Borderline high 150 - 199 mg/dL High 200 - 499 mg/dL Very High > or = 500 mg/dL LAB L501.6400 mg/dL Low HDL 35 Result Comment: The drugs N-Acetylcysteine and Metamizole may falsely depress this assay. Reference Range HDL <40 mg/dL Low HDL Cholesterol HDL >or= 60 mg/dL High HDL Cholesterol LAB L501.6500 0-130 mg/dL Normal LDL 51 LAB L501.6600 5-40 mg/dL Normal VLDL 18 Performed By: #### L500.2500, L500.3400, L500.4100 #### [facility] [address] [facility] [place], [address] TESTOSTERONE, SERUM TOTAL Collected: 05/15/2018 Status: F Source: [place] 9:49 AM [facility] REPOSITORY TYPE CODE TESTS RESULT OUT OF REFERENCE UNITS RANGE LAB L509.3000 ng/dL Testosterone Normal 97.38 Result Comment: NORMAL REFERENCE RANGES MALE AGE <50 123.06 - 813.86 ng/dL MALE AGE >50 89.98 - 780.10 ng/dL FEMALE PREMENOPAUSE AGE 21 - 60 9.01 - 47.94 ng/dL FEMALE POSTMENOPAUSE AGE 45 - 89 <7.00 - 45.62 ng/dL REFERENCE RANGE AND METHODOLOGY CHANGED 09/12/2017 Performed By: #### L509.3000 #### [facility] [place], [address] HEMOGLOBIN A1C Collected: 05/15/2018 Status: F Source: [place] 9:49 AM [facility] REPOSITORY TYPE CODE TESTS RESULT OUT OF RANGE REFERENCE UNITS LAB L501.9985 4.2-6.3 % High HGB A1C 7.7 Performed By: #### L501.9985 #### [facility] [address] [place] [address], [address] MICROALB:CREAT Collected: 05/15/2018 Status: F Source: [place] RATIO,RANDOM UR 9:49 AM [facility] REPOSITORY TYPE CODE TESTS RESULT OUT OF RANGE REFERENCE UNITS LAB L501.1200 NO RANGE EST. mg/dL Normal UR CREAT 136.00 LAB L502.0500 NO RANGE EST. mg/L Normal 7.3 MICROALBUMIN ,UR LAB L502.0600 <30 mg/g CRE mg/g CRE Normal 5.3 MALB:CREAT Performed By: #### L502.0250 #### [facility] [address] [facility] [place], [address] EMERGENCY DEPARTMENT Observed: 03/22/2018 Status: F Source: [place] SUMMARY 1:56 PM [facility] REPOSITORY [facility] Medical Records Department [address] [place] [address] Emergency Department Summary 03/22/18 1348 MR#: [id number] Acct: [id number] Name: PUALINA ACOSTA Rep #: [id number] : 1975 42 From: Walt Calderon MD PCP: Walt Marinelli MD Status: REG ER - ER Visit Summary Date of Service: 03/22/18 Chief Complaint: dysuria History of Present Illness: The patient is a 42 M presents with dysuria for a few days. He had a right-sided kidney stone which passed into his bladder, apparently it is not passing into his urine. He does not have hematuria on self-examination. He has quite a bit of burning around his urethra. He has no flank pain, abdominal pain, fever or chills. Currently he is much improved. Physical Examination: Not appear in acute distress. Moist mucous membranes, no obvious facial deformity No C-spine tenderness supple neck. Regular rate and rhythm without any obvious murmurs Clear lungs bilaterally speaking in full sentences without any obvious respiratory distress Abdomen soft and nontender no guarding or rebound Moves all extremities without any difficulty or pain. Skin does not show any obvious rashes or lesions, no trauma. Alert oriented 3 with no gross focal deficit Emergency Department Course and Treatment: Analysis shows some blood, glucose, leukoesterase, because of that he is a diabetic as well as having some blood in his urine and with leukoesterase I will treat him for an urinary tract infection. I will put him on Pyridium for his symptoms. He is to come back if he has fever or chills or symptoms get worse. I have Dr. Mayo on page to discuss the patient for close follow-up. Disposition: Discharge stable condition Impression: Bladder stone Urinary tract infection This note was generated with [employer] dictation software. It may contain incorrect words, spelling, and punctuation that were not noted in review of the chart prior to signing ED Disposition - Plan for ED Patient: Disposition: Home or Assisted Living Chief Complaint: Complaint Instructions: ED UTI Cystitis Male Prescriptions: Tamsulosin HCl [Flomax] 0.4 mg PO DAILY #5 cap Phenazopyridine HCl [Pyridium] 200 mg PO BID #10 tab Smz/Tmp Ds [Bactrim Ds] 1 tab PO BID #20 tab Referrals: Fabio Pruitt MD [STAFF PHYSICIAN] - 2 Days What to do if you have Problems For any increased pain, shortness of breath, bleeding, nausea or vomiting, chest pain, or any unexpected problems, contact your Primary Care Provider. Call [facility] ([phone]) or report to the closest Emergency Room. Call 911 if necessary. 03/22/18 1356 <Electronically signed by Walt Calderon MD> Date Walt Calderon MD Cosigner Signature (If Indicated): Date CC: Walt Marinelli MD CBC W/DIFF, AUTOMATED Collected: 03/22/2018 Status: F Source: [place] 12:50 PM [facility] REPOSITORY TYPE CODE TESTS RESULT OUT OF RANGE REFERENCE UNITS LAB L100.1000 4.4-11.0 K/mm3 Normal WBC 8.2 LAB L100.1200 4.6-6.2 M/mm3 Normal RBC 6.08 LAB L100.1300 13.0-16.5 g/dl High HGB 17.0 LAB L100.1400 40-54 % Normal HCT 49.1 LAB L100.1500 80-94 fL Normal MCV 80.8 LAB L100.1600 27.0-32.0 pg Normal MCH 28.0 LAB L100.1700 32-36 g/gl Normal MCHC 34.6 LAB L100.1810 11.6-14.6 % Normal RDW CV 13.2 LAB L100.1820 35.1-43.9 fl Normal RDW SD 38.7 LAB L100.1900 150-450 K/mm3 Normal PLT 222 LAB L100.2000 6.2-12.0 fl Normal MPV 9.8 LAB L100.2100 47-70 % Normal NEUT% 69.8 LAB L100.2200 19-41 % Normal LY% 19.2 LAB L100.2300 0-10 % Normal MONO% 8.9 LAB L100.2400 0-5 % Normal EO% 1.8 LAB L100.2500 0-1 % Normal BASO% 0.2 LAB L100.2550 0.0-0.9 % Normal IM GRAN % 0.100 Result Comment: IG% - Immature Granulocytes (promyelocytes, myelocytes and metamyelocytes) > 1% indicates that a LEFT SHIFT is Present. LAB L100.2620 2.0-7.7 X10 3/uL Normal Absolute Neut 5.7 LAB L100.2720 0.83-4.51 X10 3/ul Normal Absolute Lymph 1.58 Performed By: #### L100.0100 #### [facility] [address] [facility] [place], [address] BASIC METABOLIC Collected: 03/22/2018 Status: F Source: [place] PROFILE (BMP) 12:50 PM [facility] REPOSITORY TYPE CODE TESTS RESULT OUT OF RANGE REFERENCE UNITS LAB L501.0100 74-106 mg/dL Normal GLU 91 Result Comment: Please note revised GLUCOSE reference range effective 2017. LAB L501.1000 7-18 mg/dL High BUN 20 LAB L501.1100 0.70-1.30 mg/dL Normal CREAT,SERUM 1.15 Result Comment: The validity of the calculated GFR AND GFRAA in patients over 70 years has not been determined. Clinical correlation is essential. LAB L501.1110 >60 mL/min Normal EST GFR 74 Result Comment: Non- GFR Calc LAB L501.1115 >60 mL/min Normal EST GFR - AA 89 Result Comment: GFR Calc LAB L501.1255 ml/min Normal Estimated CRCL 83.68 LAB L501.1300 10-20 RATIO Normal BUN/CRE 17.4 LAB L501.2200 8.5-10 mg/dL Normal .1 CA 9.1 LAB L501.5300 136-14 mmol/L Normal 5 NA 142 LAB L501.5600 3.5-5. mmol/L Normal 1 K 4.3 LAB L501.5900 98-107 mmol/L Normal CL 106 LAB L501.6100 21.0-3 mmol/L Normal 2.0 CO2 31.0 LAB L501.6200 5-15 Normal GAP 5 Performed By: #### L500.2500 #### [facility] [address] [facility] [place], [address] ABDOMEN SINGLE VIEW Observed: 03/22/2018 Status: F Source: [place] 12:42 PM [facility] REPOSITORY [facility] Imaging Services [address] [place] [place] [address] Abdomen Single View MR#: [id number] Acct: [id number] Name: PAULINA ACOSTA Rep #: [id number] : 1975 M 42 From: Camden Carter MD PCP: Walt Marinelli MD Status: REG ER Study: Abdomen Single View Date of Exam: 03/22/18 Exam# [id number] Ordering Dr: Walt Calderon MD STUDY: X-RAY - ABDOMEN/PELVIS REASON FOR EXAM: Male, 42 years old. History of bladder stone. Burning sensation. TECHNIQUE: Two AP supine views of the abdomen and pelvis. COMPARISON: Comparison is made with prior study dated March 19, 2018. FINDINGS: Normal visualized lung bases. There is an unremarkable bowel gas pattern. The visualized liver, spleen and kidneys are grossly normal in size and morphology. Once again, a 3.5 mm calcification is seen in the left medial pelvis. This is unchanged. This may represent a small calculus in the bladder. Normal visualized osseous structures. RAD/Abdomen Single View IMPRESSION: Findings suggestive of a 3 mm calculus in the left side of the urinary bladder. This is unchanged. Electronically Signed: Camden Carter MD at 13:48 EDT Tel [phone], Service support , CC: Walt Calderon MD; Walt Marinelli MD Services Advisor: Signed URINALYSIS, COMPLETE Collected: 03/22/2018 Status: F Source: WINTER 12:15 PM [facility] REPOSITORY Order Comment: Order Date: 03/22/18 How was Urine Obtained? CLEAN CATCH TYPE CODE TESTS RESULT OUT OF RANGE REFERENCE UNITS LAB L400.3000 Yellow COLOR Normal Yellow LAB L400.3050 Clear Normal CLARITY Clear LAB L400.3200 Normal mg/dl High GLUCOSE, UR 100 LAB L400.3300 Negative mg/dL Normal BILIRUBIN URINE Negative LAB L400.3400 Negative mg/dl Normal KETONE UR Negative LAB L400.3465 1.002-1.030 Normal SP.GR. DIPSTX 1.015 LAB L400.3550 5.0 - 8.0 pH UR Normal 7.0 LAB L400.3600 Negative mg/dl PROT Normal DIPSTX Negative LAB L400.3700 Normal mg/dl Normal UROBILI Normal LAB L400.3750 Negative Normal NITRITE UR Negative LAB L400.3780 Negative /ul High OCCULT BLOOD-UR 150 LAB L400.3800 Negative /ul High LEUK 25 ESTERASE LAB L400.4050 0-5 /hpf WBC Normal 5-10 SEEN LAB L400.4100 0-5 /hpf Normal RBC-UA 5-10 SEEN LAB L400.4150 0-5 /hpf SQUAM 0 Normal EPI SEEN LAB L400.4300 None Seen /hpf 0 Normal BACTERIA SEEN LAB L400.4350 <or=2+ /hpf 0 Normal MUCUS, URINE SEEN Performed By: #### L400.0001 #### [facility] [address] [facility] [place], [address] ABDOMEN SINGLE VIEW Observed: 03/19/2018 Status: F Source: TRINITY 10:41 AM [facility] REPOSITORY [facility] Imaging Services [address] [place] [address] Abdomen Single View MR#: [id number] Acct: [id number] Name: PAULINA ACOSTA Rep #: [id number] : 1975 M 42 From: Monique Lagos MD PCP: Walt Marinelli MD Status: REG CLI Study: Abdomen Single View Date of Exam: 03/19/18 Exam# [id number] Ordering Dr: Fabio Pruitt MD STUDY: X-RAY - ABDOMEN/PELVIS REASON FOR EXAM: Male, 42 years old. Left kidney stone. TECHNIQUE: AP COMPARISON: CT dated March 18, 2018 FINDINGS: There is a stable device projecting over the left mid abdomen may be secondary to a neurostimulator. There are no calculi within the expected region of the left kidney. Projecting over the urinary bladder left of midline there is a 3.5 mm calcific density present. There is an unremarkable bowel gas pattern. There is no demonstrated free abdominal air. The visualized liver, spleen and kidneys are grossly normal in size and morphology. Normal soft tissue structures. Normal visualized osseous structures. RAD/Abdomen Single View IMPRESSION: 3.5 mm calcific density projecting over the urinary bladder left of midline may reflect underlying bladder calculus. Electronically Signed: Monique Lagos MD at 23:47 EDT Tel , Service support , CC: Faibo Pruitt MD; Walt Marinelli MD Services Advisor: Signed OFFICE VISIT REPORT Observed: 03/08/2018 Status: F Source: WINTER 2:30 PM [address] [place] [address] OFFICE VISIT Date of Service: 03/08/18 MR#: [id number] Acct: [id number] Patient: PAULINA ACOSTA Rep #: [id number] : 1975 Provider: JANEL Alonso Age/Sex: 42/M Location: [facility] Status: Signed Intake Vital Signs03/08/18 Height 5 ft 9 in 03/08/18 Weight: 262 lb 03/08/18 Body Mass Index (BMI) 38.7 03/08/18 Blood Pressure 140/100 03/08/18 Blood Pressure Location Lt brachial Intake Visit Reasons: BACK PAIN/KIDNEY Commodity Supervisor Required: No Is patient in pain?: Yes Allergies No Known Allergies Allergy (Verified 03/08/18 11:33) Medications Aspirin 325 mg PO DAILY@0800 03/08/18 [History Confirmed 03/08/18] Bupropion HCl [Wellbutrin Sr] 150 mg PO DAILY 03/08/18 [History Confirmed 03/08/18] Bupropion HCl [Wellbutrin Sr] 300 mg PO DINNER 03/08/18 [History Confirmed 03/08/18] Cholecalciferol (Vitamin D3) [Vitamin D3] 1,000 unit PO DAILY 03/08/18 [History Confirmed 03/08/18] Citalopram Hydrobromide [Celexa] 20 mg PO DAILY 03/08/18 [History Confirmed 03/08/18] Hydrocodone Bitart/Apap 5-325 [Bridgman 5MG-325MG] 1 tab PO Q6H PRN PRN 3 Days #10 tab 03/08/18 [Rx] Insulin Aspart [Novolog] unit CONT INF 03/08/18 [History] Metformin HCl [Glucophage] 500 mg PO BIDCM 03/08/18 [History Confirmed 03/08/18] Multivitamin [Daily Multiple Vitamin] 1 ea PO DAILY 03/08/18 [History Confirmed 03/08/18] Omeprazole [Prilosec] 20 mg PO DAILY 03/08/18 [History Confirmed 03/08/18] Ondansetron [Zofran Odt] 4 mg PO Q8H PRN PRN #10 tab 03/08/18 [Rx] Tamsulosin HCl [Flomax] 0.4 mg PO DAILY #7 cap 03/08/18 [Rx] PFSH Medical History Diabetes (Acute) Severe headache (Acute) Tiredness (Acute) Social History Smoking Status: Never smoker alcohol intake: current alcohol intake frequency: a few times a month Alcohol type: beer HPI HPI Details: PAULINA ACOSTA, is a 42 M who presents to the office today for left lower back pain. Patient states that the pain started yesterday but has been progressively getting worse today. He states that the pain today is pretty unrelenting making it very difficult to find any comfortable position. He states that the pains do come in waves and when they hit they hit him hard. He states that there is no obvious radiation to the pain at the same time he does feel some pain and pressure in the bladder area and on the left lower abdomen. He has not had any bowel or bladder changes to this point. He denies having any previous back injuries or any previous kidney stones. ROS Const Constitutional: No fever(s) or chills Gastro GI: Positive for nausea/dyspepsia (Has some nausea when the pain is bad.) and abdominal pain (Some pressure in the suprapubic region); no diarrhea or Vomiting blood/hematemesis Genitourinary Male: Positive for other (Patient did notice an office here on collecting a sample urine is tea color); no burning urination, difficulty urinating, painful urination or blood in urine Musc Musculoskeletal: Positive for back pain; no muscle weakness or numbness Neuro Neurology: No numbness Exam Const General: no acute distress, not diaphoretic, well hydrated, cooperative, healthy appearing, uncomfortable (Patient has difficulties getting comfortable. Some mild colic) Nutritional Appearance: overweight Orientation: alert, awake GI Inspection: normal to inspection Auscultation: normal bowel sounds Palpation: soft, other (Minor pressure in the suprapubic region.), no guarding, no hepatosplenomegaly General: CVA tenderness on the left (Mild but present) Musc Musculoskeletal: No muscle weakness Results BMSUA Office Urine Color LUI Last Edit by Hedy Vincent on 03/08/18 10:05 Office Urine Clarity Clear Last Edit by Hedy Vincent on 03/08/18 10:05 Assessment AND Plan Problems 1. Lower back pain M54.5 2. Suprapubic discomfort R10.2 Plan At this time patient has signs and symptoms that are consistent with kidney stone including renal colic and large hematuria. The pains have been progressively worsening and although he does not have any urinary difficulties I am recommending that patient seek further evaluation through the emergency department in order to obtain CT scan to rule out any obstructing kidney stone and for pain control. He needs to be drinking lots of water in the meantime. After discussing kidney stones and options patient understands and is going to proceed to the emergency department for evaluation and pain control. This note was generated with [employer] dictation software. It may contain incorrect words, spelling, and punctuation that were not noted in checking the note before signing. Orders Orders: Coding Level of Care Code Off vis,new,level 2 Diagnoses Lower back pain M54.5 Suprapubic discomfort R10.2 03/08/18 1430 <Electronically signed by Dwight ISLAS> Date Dwight ISLAS Cosigner Signature: Date (if applicable) CC: EMERGENCY DEPARTMENT Observed: 03/08/2018 Status: F Source: WINTER SUMMARY 1:04 PM [facility] REPOSITORY [facility] Medical Records Department [address] [place] [address] Emergency Department Summary 03/08/18 1142 MR#: [id number] Acct: [id number] Name: PAULINA ACOSTA Rep #: [id number] : 1975 42 From: Pierre Rodriguez MD PCP: Walt Marinelli MD Status: DEP ER - ER Visit Summary Date of Service: 03/08/18 Chief Complaint: Left-sided flank pain History of Present Illness: The patient is a 42 M presents to the emergency department with left-sided flank pain. Patient had the symptoms for the past 18 hours. He states it comes in waves. States pain gets very severe and will get nauseated. He has had no vomiting. He went to urgent care and there was blood in his urine. He has no history of kidney stone. He denies any history of abdominal surgery. He is an insulin-dependent diabetic but is otherwise healthy. Physical Examination: Vital signs reviewed General: Well-nourished, well-developed Head: Normocephalic, atraumatic Eyes: Pupils equal and reactive, extraocular muscles intact Neck, supple, no lymphadenopathy Heart: Regular rate and rhythm Respiratory: No distress, clear bilaterally Abdomen: Soft, nontender, nondistended, no peritoneal signs Back: Nontender Extremities: Nontender, no edema, no cords Skin: Normal color no rash Neuro: Alert and oriented, no focal or lateralizing deficits Test Results: [] Emergency Department Course and Treatment: I was able to review the patient's urine from urgent care. There was blood, but no evidence of infection. The patient declined any analgesics. Screening labs were obtained. Patient underwent CT of the abdomen and pelvis. This appears if he has a 4 mm stone towards the distal ureter. There is mild hydronephrosis. The patient remains pain-free. At this time, I do feel that he is safe for outpatient therapy. He will be given prescription for analgesics, antiemetics, and Flomax. He will be given outpatient urology follow-up. I did certified travel counselor him that if his pain worsens, he has a fever, or has change in symptoms he should be reevaluated. He is comfortable with this plan of care. Treatment Plan: [] Disposition: Charge Impression: 1. 4 mm left-sided urolithiasis This note was generated with [employer] dictation software. It may contain incorrect words, spelling, and punctuation that were not noted in review of the chart prior to signing ED Disposition - Plan for ED Patient: Chief Complaint: Flank Pain Instructions: ED Stone Renal W Colic Prescriptions: Hydrocodone Bitart/Apap 5-325 [Bridgman 5MG-325MG] 1 tab PO Q6H PRN PRN 3 Days #10 tab PRN Reason: Pain Ondansetron [Zofran Odt] 4 mg PO Q8H PRN PRN #10 tab PRN Reason: Nausea Tamsulosin HCl [Flomax] 0.4 mg PO DAILY #7 cap Referrals: Fabio Pruitt MD [STAFF PHYSICIAN] - 3-5 Days if not improving What to do if you have Problems For any increased pain, shortness of breath, bleeding, nausea or vomiting, chest pain, or any unexpected problems, contact your Primary Care Provider. Call [facility] ([phone]) or report to the closest Emergency Room. Call 911 if necessary. 03/08/18 1304 <Electronically signed by Pierre Rodriguez MD> Date Pierre Rodriguez MD Cosigner Signature (If Indicated): Date CC: Walt Marinelli MD ABDOMEN/PELVIS WITHOUT Observed: 03/08/2018 Status: F Source: WINTER CONT 11:42 AM [facility] REPOSITORY [facility] Imaging Services [address] [address] Abdomen/Pelvis without Cont MR#: [id number] Acct: [id number] Name: PAULINA ACOSTA Rep #: [id number] : 1975 M 42 From: Rolando Fox MD PCP: Walt Marinelli MD Status: REG ER Study: Abdomen/Pelvis without Cont Date of Exam: 03/08/18 Exam# [id number] Ordering Dr: Pierre Rodriguez MD STUDY: CT ABDOMEN AND PELVIS WITHOUT CONTRAST REASON FOR EXAM: Male, 42 years old. Left flank pain. RADIATION DOSAGE (If Supplied By Facility): CTDIvol = ( 14.80 ) mGy, DLP = ( 796.35 ) mGycm TECHNIQUE: Transaxial images were obtained from the dome of the diaphragm to the symphysis pubis without oral contrast, and without intravenous contrast. Sagittal and coronal images were reconstructed. Individualized dose optimization techniques were used for this CT. COMPARISON: None. FINDINGS: The visualized lung bases are unremarkable. The visualized portions of the heart are within normal limits. Normal liver. Normal gallbladder and extrahepatic biliary system. Normal spleen. Normal pancreas. Normal bilateral adrenal glands. Normal right kidney. Left kidney shows mild hydronephrosis. Mild left hydroureter. There is a 5 mm distal left ureteral calculus at the pelvic brim, seen on axial image 131 and coronal image 58. Normal visualized stomach. Normal small intestine. Normal colon. The appendix is visualized and appears normal. Normal abdominal aorta. Normal inferior vena cava. Normal retroperitoneum. Normal urinary bladder. Normal abdominal wall. Degenerative changes of the disc at L5-S1, otherwise normal osseous structures. CT/Abdomen/Pelvis without Cont IMPRESSION: 5 mm distal left ureteral calculus causing obstruction of the left kidney and collecting system. Electronically Signed: Rolando Fox MD at 12:26 EDT , Service support , CC: Pierre Rodriguez MD; Walt Marinelli MD Services Advisor: Signed CBC W/DIFF, AUTOMATED Collected: 03/08/2018 Status: F Source: WINTER 11:00 AM [facility] REPOSITORY TYPE CODE TESTS RESULT OUT OF RANGE REFERENCE UNITS LAB L100.1000 4.4-11.0 K/mm3 Normal WBC 9.0 LAB L100.1200 4.6-6.2 M/mm3 Normal RBC 6.02 LAB L100.1300 13.0-16.5 g/dl High HGB 16.9 LAB L100.1400 40-54 % Normal HCT 49.6 LAB L100.1500 80-94 fL Normal MCV 82.4 LAB L100.1600 27.0-32.0 pg Normal MCH 28.1 LAB L100.1700 32-36 g/gl Normal MCHC 34.1 LAB L100.1810 11.6-14.6 % Normal RDW CV 13.2 LAB L100.1820 35.1-43.9 fl Normal RDW SD 39.7 LAB L100.1900 150-450 K/mm3 Normal PLT 217 LAB L100.2000 6.2-12.0 fl Normal MPV 9.8 LAB L100.2100 47-70 % High NEUT% 76.9 LAB L100.2200 19-41 % Low LY% 14.3 LAB L100.2300 0-10 % Normal MONO% 7.7 LAB L100.2400 0-5 % Normal EO% 0.8 LAB L100.2500 0-1 % Normal BASO% 0.2 LAB L100.2550 0.0-0.9 % Normal IM GRAN % 0.100 Result Comment: IG% - Immature Granulocytes (promyelocytes, myelocytes and metamyelocytes) > 1% indicates that a LEFT SHIFT is Present. LAB L100.2620 2.0-7.7 X10 3/uL Normal Absolute Neut 6.9 LAB L100.2720 0.83-4.51 X10 3/ul Normal Absolute Lymph 1.29 Performed By: #### L100.0100 #### [facility] [address] [place], [place], [address] BASIC METABOLIC Collected: 03/08/2018 Status: F Source: WINTER PROFILE (BMP) 11:00 AM [facility] REPOSITORY TYPE CODE TESTS RESULT OUT OF RANGE REFERENCE UNITS LAB L501.0100 74-106 mg/dL Normal GLU 75 Result Comment: Please note revised GLUCOSE reference range effective 2017. LAB L501.1000 7-18 mg/dL High BUN 21 LAB L501.1100 0.70-1.30 mg/dL Normal CREAT,SERUM 1.19 Result Comment: The validity of the calculated GFR AND GFRAA in patients over 70 years has not been determined. Clinical correlation is essential. LAB L501.1110 >60 mL/min Normal EST GFR 71 Result Comment: Non- GFR Calc LAB L501.1115 >60 mL/min Normal EST GFR - AA 86 Result Comment: GFR Calc LAB L501.1255 ml/min Normal Estimated CRCL 80.87 LAB L501.1300 10-20 RATIO Normal BUN/CRE 17.6 LAB L501.2200 8.5-10 mg/dL Normal .1 CA 9.1 LAB L501.5300 136-14 mmol/L Normal 5 NA 144 LAB L501.5600 3.5-5. mmol/L Normal 1 K 3.8 LAB L501.5900 98-107 mmol/L Normal CL 104 LAB L501.6100 21.0-3 mmol/L Normal 2.0 CO2 32.0 LAB L501.6200 5-15 Normal GAP 8 Performed By: #### L500.2500 #### [facility] [address] [facility] [place], [place], [address] TESTOSTERONE, SERUM TOTAL Collected: 12/26/2017 Status: F Source: WINTER 9:47 AM [facility] REPOSITORY TYPE CODE TESTS RESULT OUT OF REFERENCE UNITS RANGE LAB L509.3000 ng/dL Testosterone Normal 862.59 Result Comment: NORMAL REFERENCE RANGES MALE AGE <50 123.06 - 813.86 ng/dL MALE AGE >50 89.98 - 780.10 ng/dL FEMALE PREMENOPAUSE AGE 21 - 60 9.01 - 47.94 ng/dL FEMALE POSTMENOPAUSE AGE 45 - 89 <7.00 - 45.62 ng/dL REFERENCE RANGE AND METHODOLOGY CHANGED 09/12/2017 Performed By: #### L509.3000 #### [facility] [address] [place], [place], [address] BASIC METABOLIC Collected: 12/26/2017 Status: F Source: WINTER PROFILE (BMP) 9:47 AM [facility] REPOSITORY TYPE CODE TESTS RESULT OUT OF RANGE REFERENCE UNITS LAB L501.0100 74-106 mg/dL Normal GLU 89 Result Comment: Please note revised GLUCOSE reference range effective 2017. LAB L501.1000 7-18 mg/dL High BUN 23 LAB L501.1100 0.70-1.30 mg/dL Normal CREAT,SERUM 1.17 Result Comment: The validity of the calculated GFR AND GFRAA in patients over 70 years has not been determined. Clinical correlation is essential. LAB L501.1110 >60 mL/min Normal EST GFR 73 Result Comment: Non- GFR Calc LAB L501.1115 >60 mL/min Normal EST GFR - AA 88 Result Comment: GFR Calc LAB L501.1300 10-20 RATIO Normal BUN/CRE 19.7 LAB L501.2200 8.5-10.1 mg/dL CA Normal 8.8 LAB L501.5300 136-145 mmol/L NA Normal 139 LAB L501.5600 3.5-5.1 mmol/L K Normal 3.8 LAB L501.5900 98-107 mmol/L CL Normal 103 LAB L501.6100 21.0-32.0 mmol/L Normal CO2 29.0 LAB L501.6200 5-15 Normal GAP 7 Performed By: #### L500.2500, L500.4100, L501.9520 #### [facility] [address] [place], [address] LIPID PROFILE Collected: 12/26/2017 Status: F Source: TRINITY 9:47 AM [facility] REPOSITORY TYPE CODE TESTS RESULT OUT OF RANGE REFERENCE UNITS LAB L501.4900 200 mg/dL Normal CHOL 126 Result Comment: <200 mg/dL Desirable 200-240 mg/dL Borderline >240 mg/dL High Risk LAB L501.5000 mg/dL Normal TRIG 74 Result Comment: The drugs N-Acetylcysteine and Metamizole may falsely depress this assay. Serum Triglycerides Reference Interval Normal <150 mg/dL Borderline high 150 - 199 mg/dL High 200 - 499 mg/dL Very High > or = 500 mg/dL LAB L501.6400 mg/dL Low HDL 32 Result Comment: The drugs N-Acetylcysteine and Metamizole may falsely depress this assay. Reference Range HDL <40 mg/dL Low HDL Cholesterol HDL >or= 60 mg/dL High HDL Cholesterol LAB L501.6500 0-130 mg/dL Normal LDL 79 LAB L501.6600 5-40 mg/dL Normal VLDL 15 Performed By: #### L500.2500, L500.4100, L501.9520 #### [facility] [address] [place], [address] THYROID STIM HORMONE Collected: 12/26/2017 Status: F Source: WINTER (TSH) 9:47 AM [facility] REPOSITORY TYPE CODE TESTS RESULT OUT OF RANGE REFERENCE UNITS LAB L501.9520 0.358-3.74 uIU/mL Normal TSH 0.90 Performed By: #### L500.2500, L500.4100, L501.9520 #### [facility] [address] [place], [address] HEMOGLOBIN A1C Collected: 12/26/2017 Status: F Source: WINTER 9:47 AM [facility] REPOSITORY TYPE CODE TESTS RESULT OUT OF RANGE REFERENCE UNITS LAB L501.9985 4.2-6.3 % High HGB A1C 7.9 Performed By: #### L501.9985 #### [facility] [address] [place], [address] TESTOSTERONE, SERUM TOTAL Collected: 09/14/2017 Status: F Source: WINTER 1:52 PM [facility] REPOSITORY TYPE CODE TESTS RESULT OUT OF REFERENCE UNITS RANGE LAB L509.3000 ng/dL Testosterone Normal 282.30 Result Comment: NORMAL REFERENCE RANGES MALE AGE <50 123.06 - 813.86 ng/dL MALE AGE >50 89.98 - 780.10 ng/dL FEMALE PREMENOPAUSE AGE 21 - 60 9.01 - 47.94 ng/dL FEMALE POSTMENOPAUSE AGE 45 - 89 <7.00 - 45.62 ng/dL REFERENCE RANGE AND METHODOLOGY CHANGED 09/12/2017 Performed By: #### L509.3000 #### [facility] [address] [place], [address] ALLERGIES ALLERGIES DATE TYPE / CODE NAME / CODE REACTION SEVERITY SOURCE 05/23/2018 Drug No Known Unknown [facility] Allergy/4160 Allergies/F001 Hospital 60826(SNOMED 419252(RXNORM) Repository CT) 03/08/2018 Drug Unable to Unknown [facility] Allergy/4160 Assess/X325074 Hospital 71869(SNOMED 795(RXNORM) Repository CT) ENCOUNTERS ENCOUNTERS ADMIT/DISCHARGE ACCOUNT ADMITTING ENCOUNTER LOCATION SOURCE NUMBER CLASS 08/26/2018 [id number] Ambulatory [place] [facility] ing:MFPLAB Repository 05/23/2018/ [id number] [place] 6 [facility] ing:ED Repository 05/15/2018 [id number] Ambulatory [place] 9 [facility] ing:MFPLAB Repository 03/22/2018/ [id number] Emergency [place] [address] [place] [address] ing:ED Repository 03/19/2018 [id number] Ambulatory [place] 6 [facility] ing:MTRAD Repository 03/08/2018/ [id number] Emergency [place] 8 9 [facility] ing:ED Repository 03/08/2018/ [id number] Ambulatory BMSBuilding:B [place] 4 [facility] Repository 12/26/2017 [id number] Ambulatory [place] 5 [facility] ing:MFPLAB Repository 09/14/2017 [id number] Ambulatory [place] 8 [facility] ing:MFPLAB Repository PAYERS PAYERS ENCOUNTER GUARANTOR PAYER SUBSCRIBER SOURCE 08/26/2018 PAULINA Esqueda Primary Insurance:[facility] PAULINA [address] [facility] [id number] [address]Sjl: Number: Repository [id number] (HP) Date:5638-46-38CJ [facility] [address], [place] [address]TJ: CHECK WEBSITE 08/26/2018 Secondary NOT GIVENUNK [place] Insurance:SELF PAY [facility] Number: Effective Repository Date:2018-06-05 05/23/2018 PAULINA Esqueda Primary Insurance:[facility] PAULINA ACOSTA[address] [facility] [id number] [facility] [place] [address]Lwh: Number: Repository [id number] (HP) Date:7866-32-97[address] [address]MTBRMCGGP, [place] [address]PO: CHECK WEBSITE 05/23/2018 Secondary NOT GIVENUNK [place] Insurance:SELF PAY [facility] Number: Effective Repository Date:2018-05-23 05/15/2018 PUALINA S Primary Insurance:[facility] PAULINA ACOSTA[address] [facility] [id number] Hospital [place] [address]Nyj: Number: Repository [id number] (HP) Date:7190-68-79VG [address] [address]CRVMMPYZ, [place] [address]PT: CHECK WEBSITE 05/15/2018 Secondary NOT GIVENUNK [place] Insurance:SELF PAY [facility] Number: Effective Repository Date:2018-05-15 03/22/2018 PAULINA S Primary Insurance:[facility] PAULINA ACOSTA[address] [facility]: [facility] [id number] Hospital [place] [address]Doq: Number: Repository [id number] (HP) Date:3888-31-82HC [address] [address]RSNOBPFKZ, [place] [address]DP: CHECK WEBSITE 03/22/2018 Secondary NOT GIVENUNK [place] Insurance:SELF PAY [facility] Number: Effective Repository Date:2018-03-22 03/19/2018 PAULINA S Primary Insurance:[facility] PAULINA ACOSTA[address] [facility]: [facility] [id number] [place] [address]Bpp: Number: Repository [id number] (HP) Date:5184-41-82IG [address] [address]POSELJNZA, [place] [address]LY: CHECK WEBSITE 03/19/2018 Secondary NOT GIVENUNK [place] Insurance:SELF PAY [facility] Number: Effective Repository Date:2018-03-19 03/08/2018 PAULINA S Primary Insurance:[facility] PAULINA Max [id number] [facility]: [facility] [id number] [place] [address]Ype: Number: Repository [id number] (HP) Date:3673-83-24[address] [address]EKUPGQTII, [place] [address]HV: CHECK WEBSITE 03/08/2018 Secondary NOT GIVENUNK [place] Insurance:SELF PAY [facility] Number: Effective Repository Date:2018-03-08 03/08/2018 PAULINA S Primary Insurance:[facility] PAULINA Woodoster [id number] [facility]: [facility] [id number] Hospital [place] [address]Xto: Number: Repository [id number] () Date:1917-21-90[address] [address]TDXZBDPQJ, [place] [address]FK: CHECK WEBSITE 03/08/2018 Secondary NOT GIVENUNK [place] Insurance:SELF PAY [facility] Number: Effective Repository Date:2018-03-08 12/26/2017 Paulina S Primary Insurance:[facility] Paulina Max [address] [facility] [id number] [place] [address]Gni: Number: Repository [id number] (HP) Date:[id number] [address] [address] [address]OR: CHECK WEBSITE 12/26/2017 Secondary NOT GIVENUNK Winter Insurance:SELF PAY [facility] Number: Effective Repository Date:2017-12-26 09/14/2017 Paulina S Primary Insurance:[facility] Paulina Woodoster [id number] [facility] [id number] [address]Cya: Number: Repository [id number] (HP) Date:[id number] [address] [address], [place] [address]: CHECK WEBSITE 09/14/2017 Secondary NOT GIVENUNK Winter Insurance:SELF PAY [facility]: Effective Repository Date:2017-09-14
== END ==
PROVIDERS: Family Provider Family Medicine; PCP Family Medicine; Visit Provider Family Medicine
DX: E29.1 Testicular hypofunction (principal)
CPT/HCPCS: 36415; 84403

== ENCOUNTER 2018-10-13 19:19 | Emergency (ER) | payer OTHER, SELFPAY ==
[2018-10-13] VITALS (7 sets, daily range): BP systolic 139–160; BP diastolic 68–95; PULSE 116–133; RESP 17–20; TEMP 37.7–38.3; O2SAT 93–96; BMI 39.5
--- NOTE | 2018-10-13 19:33 | EKG12_ITS ---
Test Reason : CP Blood Pressure : / mmHG Vent. Rate : 126 BPM Atrial Rate : 126 BPM P-R Int : 144 ms QRS Dur : 098 ms QT Int : 294 ms P-R-T Axes : 061 -01 026 degrees QTc Int : 425 ms Sinus tachycardia Possible Left atrial enlargement Left ventricular hypertrophy Abnormal ECG Confirmed by WILLY HERBERT, WONG ([id number]), technical writer and editor SEBLE KINCAID ([id number]) on 10/24/2018 8:43:52 AM Referred By: Confirmed By:WONG AGUILERA MD
--- NOTE | 2018-10-13 19:37 | ED.VISSUMM ---
- ER Visit Summary Date of Service: 10/13/18 Chief Complaint: Fever, cough, myalgias History of Present Illness: The patient is a 43 M presents to the emergency department with fever, cough, myalgias. The patient is an insulin-dependent diabetic. He states his symptoms began about a week ago. He states he had some nasal drainage, mild cough, mild sore throat. States he was doing better, began to have a fever today. He states he has had myalgias and arthralgias. He is also had cough with scant sputum. States that he felt very weak and malaised. He denies any underlying history of lung disease. The patient did have pneumonia a few months ago. He does not smoke. He denies any chest pain. Physical Examination: Vital signs reviewed General: Well-nourished, well-developed Head: Normocephalic, atraumatic Eyes: Pupils equal and reactive, extraocular muscles intact Neck, supple, no lymphadenopathy Heart: Regular rate and rhythm Respiratory: No distress, lungs diminished Abdomen: Soft, nontender, nondistended, no peritoneal signs Back: Nontender Extremities: Nontender, no edema, no cords Skin: Normal color no rash Neuro: Alert and oriented, no focal or lateralizing deficits Test Results: [] Emergency Department Course and Treatment: Patient presents with cough, fever, myalgias and arthralgias. He was tachycardic on arrival. EKG was obtained which does show sinus tachycardia. There is no evidence of acute ischemia. IV was established. Patient given fluids and Toradol. His fever had resolved. His heart rate had improved. Influenza was negative. Screening labs are unremarkable. Patient was given a DuoNeb treatment with some mild improvement of his aeration. The patient was ambulated. He had no hypoxia. With his tachycardia, I did obtain a CT of his chest to rule out small pneumonia that was not visualized. This is also unremarkable. I long discussion with the patient at the bedside. As he has no hypoxia, improvement of his symptoms, no focal infiltrative process, and improvement I do feel that he is safe for outpatient therapy. He is comfortable with this plan of care. I do want him to follow-up with his physician in the next 48 hours. I also counseled him that if his symptoms worsen in any way he should return to the emergency department. He is comfortable with this plan of care and will be discharged. Treatment Plan: [] Disposition: Discharge Impression: 1. Viral URI with dyspnea This note was generated with [employer] dictation software. It may contain incorrect words, spelling, and punctuation that were not noted in review of the chart prior to signing ED Disposition - Plan for ED Patient: Chief Complaint: Fever Instructions: ED Upper Resp Infec No Abx Tx Referrals: Walt Marinelli MD [Primary Care Provider] -
[2018-10-13 19:53] LABS: Absolute Lymphocyte Count 0.84 X10^3/ul (0.83-4.51); Absolute Neutrophil Count 6.2 X10^3/uL (2.0-7.7); Basophil# 0.02 X10^3/uL; Basophil% 0.3 % (0-1); Eosinophil# 0.08 X10^3/uL; Hematocrit 46.8 % (40-54); Hemoglobin 16.3 g/dl (13.0-16.5); Lymphocyte # 0.84 X10^3/ul (4.0); Lymphocyte % 10.6 % (19-41); Mean Corp Hgb Conc 34.8 g/gl (32-36); Mean Corpuscular Hgb 28.1 pg (27.0-32.0); Mean Corpuscular Volume 80.6 fL (80-94); Monocyte# 0.81 X10^3/uL; Monocyte% 10.2 % (0-10); Neutrophil # 6.18 X10^3/uL (2.7-7.7); Neutrophil % 77.6 % (47-70); POSITIVE COUNT NO; POSITIVE DIFFERENTIAL NO; POSITIVE MORPHOLOGY NO; Platelet Count 204 K/mm3 (150-450); RBC Distribution Width CV 13.6 % (11.6-14.6); RBC Distribution Width SD 39.5 fl (35.1-43.9); Red Blood Count 5.81 M/mm3 (4.6-6.2)
[2018-10-13] MEDS: Ipratropium/Albuterol Sulfate 3 ML AMPUL.NEB INHALATION (19:57)
[2018-10-13] MEDS: 0.9% Normal Saline 1,000 ML 1000 ML IV (20:05)
[2018-10-13] MEDS: Ketorolac 30 MG/ML Syringe IV (20:05)
[2018-10-13 20:12] LABS: AST(SGOT) 38 U/L (15-37); Alanine Aminotransfer ALT/SGPT 34 U/L (16-61); Albumin, Serum 3.7 g/dL (3.2-5.0); Alkaline Phosphatase 65 U/L (45-117); Anion Gap 9 (5-15); BUN 22 mg/dL (7-18); BUN/Creat Ratio 19.5 RATIO (10-20); Calcium,Total 8.4 mg/dL (8.5-10.1); Chloride 100 mmol/L (98-107); Creatinine, Serum 1.13 mg/dL (0.70-1.30); EST Glomerular Filtration Rate 75 mL/min (>60); Est Glom Filt Rate - Afr Amer 91 mL/min (>60); Estimated Creatinine Clearance 87.03 ml/min; Globulin 3.8 g/dL (2.2-4.2); Glucose 176 mg/dL (74-106); Potassium 4.7 mmol/L (3.5-5.1); Protein, Total 7.5 g/dL (6.4-8.2); Sodium Level 135 mmol/L (136-145)
--- NOTE | 2018-10-13 20:30 | RAD_ITS ---
HISTORY: PT ARRIVES TO ED WITH FEVER, COUGH, SINUS CONGESTION. EXAM: XR Chest 2 Views: COMPARISON: 05/23/18 chest radiographs. FINDINGS: # of images incl. paperwork: 2 LINES/DEVICES: None. LUNGS: Radiographically clear. No consolidation, edema or effusion. No pneumothorax. MEDIASTINUM AND CARDIOVASCULAR STRUCTURES: Cardiac silhouette not enlarged. Central airways and mediastinal contour are unremarkable. BONES AND SOFT TISSUES: Unremarkable. RAD/Chest PA and Lateral IMPRESSION: No radiographic evidence of acute cardiopulmonary disease. at 2046 Reported and signed by: Neo Benitez MD Electronically Signed: Neo Benitez, at 20:45 EST Tel , Service support ,
[2018-10-13 20:43] LABS: Lactic Acid 1.2 mmol/L (0.4-2.0)
--- NOTE | 2018-10-13 20:59 | CT_ITS ---
HISTORY: FEVER X 1 DAY, COUGH X 1 WEEK, SINUS CONGESTION, DIAB WITH INSULIN PUMP TECHNIQUE: Helically acquired images were obtained of the chest. A radiation dose optimization technique was used for this scan. IV Contrast dosage and agent: None. COMPARISON: Radiographs earlier same date. FINDINGS: # of images incl. paperwork: [id number] UPPER ABDOMEN: Unremarkable. HEART AND PERICARDIUM: Heart size is normal. There is no pericardial effusion. VESSELS: Thoracic aorta is not dilated. MEDIASTINUM AND ALEJANDRO: Shotty mildly prominent in number but nonpathologic in size mediastinal lymph nodes. Esophagus unremarkable. SOFT TISSUES: Included thyroid gland is unremarkable. There is no axillary, supraclavicular or lower cervical adenopathy. LUNGS AND LARGE AIRWAYS: No pneumonia or pulmonary edema. No concerning masses or nodules. PLEURA: Unremarkable. No pleural effusion or thickening. BONES: No suspicious lytic or blastic abnormality observed. CT/Chest without Contrast IMPRESSION: Negative CT chest without contrast. No pneumonia. Individualized dose optimization techniques were used for this CT. at 2137 Reported and signed by: Neo Benitez MD Electronically Signed: Neo Benitez, at 21:36 EST Tel , Service support ,
[2018-10-13] MEDS: 0.9% Normal Saline 1,000 ML 999 ML IV (22:03)
[2018-10-13] MEDS: Acetaminophen 500 MG Tablet 1000 MG PO (22:27)
--- OUTSIDE RECORDS SUMMARY | 2018-12-16 12:18 | XMS RPT_ITS ---
:1975 Author Organization OHIP Support Name Relationship Address Phone ROSI WOOD Unavailable [address] [facility] + [place] [address] [facility] Unavailable [address] + [place] [address] DAVE ROSI Unavailable [address] [facility] [facility] [address] + [place] [address] [facility] Unavailable [address] + [place] [address] DAVE, ROSI Unavailable [address] [facility] [facility] [facility] [address] [address] + [place] [address] [facility] Unavailable [address] + [place] [address] DAVE, ROSI Unavailable [address] [facility] [facility] [facility] [address] [address] + [place] [address] [facility] Unavailable [address] + [place] [address] DAVE, ROSI Unavailable [address] [facility] [facility] [facility] [address] + [place] [address] [facility] Unavailable [address] + [place] [address] DAVE, ROSI Unavailable [address] + [place] [address] [facility] Unavailable [address] + [place] [address] DAVE, ROSI Unavailable [address] [facility] [facility] [address] + [place] [address] [facility] Unavailable [address] + [place] [address] DAVE, ROSI Unavailable [address] [facility] [facility] [address] + [place] [address] [facility] Unavailable [address] + [place] [address] ROSI WOOD Unavailable [address] [facility] + [place] [address] [facility] Unavailable [address] + [place] [address] Care Team Providers Name Role Phone Walt Marinelli Primary Care Unavailable Pierre Rodriguez Attending Unavailable Marinelli, Walt Attending Unavailable Marinelli, Walt Primary Care Unavailable WayDwight saavedra Attending Unavailable Marinelli, Walt Referring Unavailable Marinelli, Walt Primary Care Unavailable Marinelli, Walt Primary Care Unavailable Jennifer, Pierre Attending Unavailable Sonal, Fabio Barbour Attending Unavailable [...] STATUS SOURCE 08/26/2018 Unknown 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 / Community E29.1(ICD-10) Hospital Repository 03/19/2018 Unknown N20.0 - Calculus of Sonal Fabio Active [place] kidney / Km Community N20.0(ICD-10) Hospital Repository 03/08/2018 Unknown N23 - Unspecified Dwight Alonso Active [place] renal colic / Community N23(ICD-10) Hospital Repository 12/26/2017 Unknown E11.9 - Type 2 Walt Marinelli Active [place] diabetes mellitus Community without Hospital complications / Repository E11.9(ICD-10) PROCEDURES PROCEDURES No Procedure Records FoundRESULTS RESULTS EMERGENCY DEPARTMENT Observed: 10/13/2018 Status: F Source: [place] SUMMARY 11:19 PM [facility] REPOSITORY [facility] Medical Records Department [address] [place] [address] Emergency Department Summary 10/13/18 1937 MR#: [id number] Acct: [id number] Name: PAULINA WOOD Rep #: [id number] : 1975 43 From: Pierre Rodriguez MD PCP: Walt Marinelli MD Status: DEP ER - ER Visit Summary Date of Service: 10/13/18 Chief Complaint: Fever, cough, myalgias History of Present Illness: The patient is a 43 M presents to the emergency department with fever, cough, myalgias. The patient is an insulin-dependent diabetic. He states his symptoms began about a week ago. He states he had some nasal drainage, mild cough, mild sore throat. States he was doing better, began to have a fever today. He states he has had myalgias and arthralgias. He is also had cough with scant sputum. States that he felt very weak and malaised. He denies any underlying history of lung disease. The patient did have pneumonia a few months ago. He does not smoke. He denies any chest pain. Physical Examination: Vital signs reviewed General: Well-nourished, well-developed Head: Normocephalic, atraumatic Eyes: Pupils equal and reactive, extraocular muscles intact Neck, supple, no lymphadenopathy Heart: Regular rate and rhythm Respiratory: No distress, lungs diminished Abdomen: Soft, nontender, nondistended, no peritoneal signs Back: Nontender Extremities: Nontender, no edema, no cords Skin: Normal color no rash Neuro: Alert and oriented, no focal or lateralizing deficits Test Results: [] Emergency Department Course and Treatment: Patient presents with cough, fever, myalgias and arthralgias. He was tachycardic on arrival. EKG was obtained which does show sinus tachycardia. There is no evidence of acute ischemia. IV was established. Patient given fluids and Toradol. His fever had resolved. His heart rate had improved. Influenza was negative. Screening labs are unremarkable. Patient was given a DuoNeb treatment with some mild improvement of his aeration. The patient was ambulated. He had no hypoxia. With his tachycardia, I did obtain a CT of his chest to rule out small pneumonia that was not visualized. This is also unremarkable. I long discussion with the patient at the bedside. As he has no hypoxia, improvement of his symptoms, no focal infiltrative process, and improvement I do feel that he is safe for outpatient therapy. He is comfortable with this plan of care. I do want him to follow-up with his physician in the next 48 hours. I also counseled him that if his symptoms worsen in any way he should return to the emergency department. He is comfortable with this plan of care and will be discharged. Treatment Plan: [] Disposition: Discharge Impression: 1. Viral URI with dyspnea This note was generated with Hyperfair dictation software. It may contain incorrect words, spelling, and punctuation that were not noted in review of the chart prior to signing ED Disposition - Plan for ED Patient: Chief Complaint: Fever Instructions: ED Upper Resp Infec No Abx Tx Referrals: Walt Marinelli MD [Primary Care Provider] - What to do if you have Problems For any increased pain, shortness of breath, bleeding, nausea or vomiting, chest pain, or any unexpected problems, contact your Primary Care Provider. Call [facility] ([phone]) or report to the closest Emergency Room. Call 911 if necessary. 10/13/18 2319 <Electronically signed by Pierre Rodriguez MD> Date Pierre Rodriguez MD Cosigner Signature (If Indicated): Date CC: Walt Marinelli MD Observed: 10/13/2018 Status: F Source: [place] CULTURE, BLOOD (WB) 9:50 PM [facility] REPOSITORY BC No growth in 5 days. Performed By: #### M200.1000 #### [facility] [address] [place], [place], [id number] Observed: 10/13/2018 Status: F Source: [place] CULTURE, BLOOD (WB) 9:40 PM [facility] REPOSITORY No growth in 5 days. Performed By: #### M200.1000 #### [facility] [address] [place], [id number] CHEST WITHOUT Observed: 10/13/2018 Status: F Source: [place] CONTRAST 9:00 PM [facility] REPOSITORY [facility] Imaging Services [address] [place] [address] Chest without Contrast MR#: [id number] Acct: [id number] Name: PAULINA WOOD Rep #: [id number] : 1975 M 43 From: Neo Benitez MD PCP: Walt Marinelli MD Status: REG ER Study: Chest without Contrast Date of Exam: 10/13/18 Exam# [id number] Ordering Dr: Pierre Rodriguez MD HISTORY: FEVER X 1 DAY, COUGH X 1 WEEK, SINUS CONGESTION, DIAB WITH INSULIN PUMP TECHNIQUE: Helically acquired images were obtained of the chest. A radiation dose optimization technique was used for this scan. IV Contrast dosage and agent: None. COMPARISON: Radiographs earlier same date. FINDINGS: # of images incl. paperwork: [id number] UPPER ABDOMEN: Unremarkable. HEART AND PERICARDIUM: Heart size is normal. There is no pericardial effusion. VESSELS: Thoracic aorta is not dilated. MEDIASTINUM AND ALEJANDRO: Shotty mildly prominent in number but nonpathologic in size mediastinal lymph nodes. Esophagus unremarkable. SOFT TISSUES: Included thyroid gland is unremarkable. There is no axillary, supraclavicular or lower cervical adenopathy. LUNGS AND LARGE AIRWAYS: No pneumonia or pulmonary edema. No concerning masses or nodules. PLEURA: Unremarkable. No pleural effusion or thickening. BONES: No suspicious lytic or blastic abnormality observed. CT/Chest without Contrast IMPRESSION: Negative CT chest without contrast. No pneumonia. Individualized dose optimization techniques were used for this CT. at 2137 Reported and signed by: Neo Benitez MD Electronically Signed: Neo Benitez, at 21:36 EST Tel , Service support , CC: Pierre Rodriguez MD; Walt Marinelli MD Inserter: Signed Observed: 10/13/2018 Status: F Source: [place] INFLUENZA A+B (RAPID 7:55 PM [facility]) REPOSITORY Has pt arrived? Y FLU A/B Rapid Negative test results should be confirmed with FLU PANEL MOLECULAR if indicated. Influenza Ag, Direct Presumptive NEGATIVE for Influenza A/B Antigen (See Note) Performed By: #### M101.0101 #### [facility] [address] [place], [place], [id number] CBC W/DIFF, AUTOMATED Collected: 10/13/2018 Status: F Source: [place] 7:44 PM [facility] REPOSITORY TYPE CODE TESTS RESULT OUT OF RANGE REFERENCE UNITS LAB L100.1000 4.4-11.0 K/mm3 Normal WBC 8.0 LAB L100.1200 4.6-6.2 M/mm3 Normal RBC 5.81 LAB L100.1300 13.0-16.5 g/dl Normal HGB 16.3 LAB L100.1400 40-54 % Normal HCT 46.8 LAB L100.1500 80-94 fL Normal MCV 80.6 LAB L100.1600 27.0-32.0 pg Normal MCH 28.1 LAB L100.1700 32-36 g/gl Normal MCHC 34.8 LAB L100.1810 11.6-14.6 % Normal RDW CV 13.6 LAB L100.1820 35.1-43.9 fl Normal RDW SD 39.5 LAB L100.1900 150-450 K/mm3 Normal PLT 204 LAB L100.2000 6.2-12.0 fl Normal MPV 10.0 LAB L100.2100 47-70 % High NEUT% 77.6 LAB L100.2200 19-41 % Low LY% 10.6 LAB L100.2300 0-10 % High MONO% 10.2 LAB L100.2400 0-5 % Normal EO% 1.0 LAB L100.2500 0-1 % Normal BASO% 0.3 LAB L100.2550 0.0-0.9 % Normal IM GRAN % 0.300 Result Comment: IG% - Immature Granulocytes (promyelocytes, myelocytes and metamyelocytes) > 1% indicates that a LEFT SHIFT is Present. LAB L100.2620 2.0-7.7 X10 3/uL Normal Absolute Neut 6.2 LAB L100.2720 0.83-4.51 X10 3/ul Normal Absolute Lymph 0.84 Performed By: #### L100.0100 #### [facility] [address] [place], [place], [address] COMPREHENSIVE METABOLIC Collected: 10/13/2018 Status: F Source: [place] [facility] 7:44 PM [facility] REPOSITORY TYPE CODE TESTS RESULT OUT OF RANGE REFERENCE UNITS LAB L501.0100 74-106 mg/dL High GLU 176 Result Comment: Fasting Glucose result greater than or equal to 126 mg/dL suggests DIABETES MELLITUS per A.D.A. criteria. Please note revised GLUCOSE reference range effective 2017. LAB L501.1000 7-18 mg/dL High BUN 22 LAB L501.1100 0.70-1.30 mg/dL Normal CREAT,SERUM 1.13 Result Comment: The validity of the calculated GFR AND GFRAA in patients over 70 years has not been determined. Clinical correlation is essential. LAB L501.1110 >60 mL/min Normal EST GFR 75 Result Comment: Non- GFR Calc LAB L501.1115 >60 mL/min Normal EST GFR - AA 91 Result Comment: GFR Calc LAB L501.1255 ml/min Normal Estimated CRCL 87.03 LAB L501.1300 10-20 RATIO Normal BUN/CRE 19.5 LAB L501.1500 6.4-8. g/dL Normal 2 T PROT 7.5 LAB L501.1800 3.2-5. g/dL Normal 0 ALB 3.7 LAB L501.1950 2.2-4. g/dL Normal 2 GLOB 3.8 LAB L501.2000 0.9-2. RATIO Normal 4 A/G 1.0 LAB L501.2200 8.5-10 mg/dL Low .1 CA 8.4 LAB L501.4100 15-37 U/L High AST 38 Result Comment: Moderate Hemolysis, Result may be falsely increased. LAB L501.4305 45-117 U/L Normal ALK P 65 LAB L501.4405 16-61 U/L Normal ALT 34 LAB L501.4600 0.20-1.00 mg/dL Normal T BILI 0.50 LAB L501.5300 136-145 mmol/L Low NA 135 LAB L501.5600 3.5-5.1 mmol/L Normal K 4.7 Result Comment: Moderate Hemolysis, Result may be falsely increased. LAB L501.5900 98-107 mmol/L Normal CL 100 LAB L501.6100 21.0-32.0 mmol/L Normal CO2 26.0 LAB L501.6200 5-15 Normal 9 GAP Performed By: #### L500.4050 #### [facility] [address] [place], [address] LACTIC ACID Collected: 10/13/2018 Status: F Source: [place] 7:44 PM [facility] REPOSITORY Order Comment: Yes/No query for Sepsis Lactate Rule Y TYPE CODE TESTS RESULT OUT OF RANGE REFERENCE UNITS LAB L503.6005 0.4-2.0 mmol/L Normal LACTIC ACID 1.2 Performed By: #### L503.6005 #### [facility] [address] [place], [address] CHEST PA AND LATERAL Observed: 10/13/2018 Status: F Source: [place] 7:34 PM [facility] REPOSITORY [facility] Imaging Services [address] [place] [address] Chest PA and Lateral MR#: [id number] Acct: [id number] Name: PAULINA WOOD Rep #: [id number] : 1975 M 43 From: Neo Benitez MD PCP: Walt Marinelli MD Status: REG ER Study: Chest PA and Lateral Date of Exam: 10/13/18 Exam# [id number] Ordering Dr: Pierre Rodriguez MD HISTORY: PT ARRIVES TO ED WITH FEVER, COUGH, SINUS CONGESTION. EXAM: XR Chest 2 Views: COMPARISON: 05/23/18 chest radiographs. FINDINGS: # of images incl. paperwork: 2 LINES/DEVICES: None. LUNGS: Radiographically clear. No consolidation, edema or effusion. No pneumothorax. MEDIASTINUM AND CARDIOVASCULAR STRUCTURES: Cardiac silhouette not enlarged. Central airways and mediastinal contour are unremarkable. BONES AND SOFT TISSUES: Unremarkable. RAD/Chest PA and Lateral IMPRESSION: No radiographic evidence of acute cardiopulmonary disease. at 2046 Reported and signed by: Neo Benitez MD Electronically Signed: Neo Benitez, at 20:45 EST Tel , Service support , CC: Pierre Rodriguez MD; Walt Marinelli MD Inserter: Signed TESTOSTERONE, SERUM TOTAL Collected: 08/26/2018 Status: F Source: [place] 12:20 PM [facility] REPOSITORY TYPE CODE TESTS RESULT OUT OF [...] CHANGED 09/12/2017 Performed By: #### L509.3000 #### [facility] [address] [facility] [place], [address] 12 LEAD ELECTROCARDIOGRAM Observed: 05/24/2018 Status: F Source: [place] 1:31 PM [facility] REPOSITORY [facility] Cardiovascular Services [address] [place] [address] 12 Lead EKG 05/23/18 0513 MR#: [id number] Acct: [id number] Name: PAULINA WOOD Rep #: [id number] : 1975 42 From: Walt Aguilera MD [...] ECG Confirmed by WILLY HERBERT, WALT ([id number]), graphic editor SEBLE KINCAID ([id number]) on 05/24/2018 1:30:49 PM Referred By: NEVAEH Confirmed By:WALT AGUILERA MD 05/24/18 1330 Date Walt Aguilera MD CC: Raul Haque MD; Walt Marinelli MD Signed EMERGENCY DEPARTMENT Observed: 05/23/2018 Status: F Source: [place] SUMMARY 6:48 AM [facility] REPOSITORY [facility] Medical Records Department [address] [place] [address] Emergency Department Summary 05/23/18 0508 MR#: [id number] Acct: [id number] Name: PAULINA WOOD Rep #: [id number] : 1975 42 From: Raul Haque MD [...] Aspiration pneumonitis This note was generated with Hyperfair dictation software. It may contain incorrect words, [...] your Primary Care Provider. Call [facility] ([phone]) or report to the closest Emergency Room. Call 911 if necessary. 05/23/1848 <Electronically signed by Raul Haque MD> Date Raul Haque MD Cosigner Signature (If Indicated): Date CC: Walt Marinelli MD DISCHARGE INSTRUCTION Observed: 05/23/2018 Status: F Source: [place] 6:48 AM [facility] REPOSITORY [facility] Medical Records Department [address] [place] [address] Discharge Instruction 05/23/18 0614 MR#: [id number] Acct: [id number] Name: PAULINA WOOD Rep #: [id number] : 1975 42 From: Raul Haque MD [...] your Primary Care Provider. Call [facility] ([phone]) or report to the closest Emergency Room. Call 911 if necessary. 05/23/18 0648 <Electronically signed by Raul Haque MD> Date Raul Haque MD Cosigner Signature (If Indicated): Date CC: Walt Marinelli MD CBC W/DIFF, AUTOMATED Collected: 05/23/2018 Status: F Source: [place] 5:15 AM [facility] REPOSITORY TYPE CODE TESTS RESULT OUT OF [...] Lymph 2.25 Performed By: #### L100.0100 #### [facility] [address] [place], [address] BASIC METABOLIC Collected: 05/23/2018 Status: F Source: [place] PROFILE (BMP) 5:15 AM [facility] REPOSITORY TYPE CODE TESTS RESULT OUT OF [...] 11 Performed By: #### L500.2500, L501.4010 #### [facility] [address] [place], [address] TROPONIN-I Collected: 05/23/2018 Status: F Source: [place] 5:15 AM [facility] REPOSITORY TYPE CODE TESTS RESULT OUT OF RANGE REFERENCE UNITS LAB L501.4010 <0.045 ng/mL Normal < 0.015 TROPONIN-I Result Comment: TROPONIN-I EXPECTED VALUES <0.045 Negative 0.045 - 0.590 Consistent with Cardiac Damage > OR = 0.600 Critical Value Not every elevated troponin is indicative of ND. These values should be used with clinical judgement in examining the patient's clinical picture for diagnosis. To establish a diagnosis of ND versus myocardial injury, there must be a demonstrated rise and/or fall in the troponin values, in addition to ischemic symptoms, EKG changes, new regional wall motion abnormality, and/or angiographical evidence. PLEASE NOTE: REFERENCE RANGES EDITED 18 Performed By: #### L500.2500, L501.4010 #### [facility] [address] [place], [address] CHEST PA AND LATERAL Observed: 05/23/2018 Status: F Source: [place] 5:07 AM [facility] REPOSITORY [facility] Imaging Services [address] [place] [address] Chest PA and Lateral MR#: [id number] Acct: [id number] Name: PAULINA WOOD Rep #: [id number] : 1975 M 42 From: Odin Koroma MD PCP: Walt Marinelli MD Status: REG ER Study: Chest PA and Lateral Date of Exam: 05/23/18 Exam# [id number] Ordering Dr: Raul Haque MD STUDY: X-RAY [...] findings in the lungs Electronically Signed: Odin AlemanAkankshaJocy, at 5:55 EDT Tel , Service support , CC: Raul Haque MD; Walt Marinelli MD Inserter: Signed BASIC METABOLIC Collected: 05/15/2018 Status: F Source: [place] PROFILE (BMP) 9:49 AM [facility] REPOSITORY TYPE CODE TESTS RESULT OUT OF [...] Performed By: #### L500.2500, L500.3400, L500.4100 #### [facility] [address] [place], [place], [id number] LIVER PROFILE Collected: 05/15/2018 Status: F Source: [place] 9:49 AM [facility] REPOSITORY TYPE CODE TESTS RESULT OUT OF [...] Performed By: #### L500.2500, L500.3400, L500.4100 #### [facility] [address] [place], [place], [id number] LIPID PROFILE Collected: 05/15/2018 Status: F Source: [place] 9:49 [facility] REPOSITORY TYPE CODE TESTS RESULT OUT OF [...] Performed By: #### L500.2500, L500.3400, L500.4100 #### [facility] [address] [place], [address] TESTOSTERONE, SERUM TOTAL Collected: 05/15/2018 Status: F Source: [place] 9:49 AM [facility] REPOSITORY TYPE CODE TESTS RESULT OUT OF [...] CHANGED 09/12/2017 Performed By: #### L509.3000 #### [facility] [address] [place], [place], [address] HEMOGLOBIN A1C Collected: 05/15/2018 Status: F Source: [place] 9:49 AM [facility] REPOSITORY TYPE CODE TESTS RESULT OUT OF RANGE REFERENCE UNITS LAB L501.9985 4.2-6.3 % High HGB A1C 7.7 Performed By: #### L501.9985 #### [facility] [address] [facility] [place] [place], [address] MICROALB:CREAT Collected: 05/15/2018 Status: F Source: [place] RATIO,RANDOM UR 9:49 AM [facility] REPOSITORY TYPE CODE TESTS RESULT OUT OF RANGE REFERENCE UNITS LAB L501.1200 NO RANGE EST. mg/dL Normal UR CREAT 136.00 LAB L502.0500 NO RANGE EST. mg/L Normal 7.3 MICROALBUMIN ,UR LAB L502.0600 <30 mg/g CRE mg/g CRE Normal 5.3 MALB:CREAT Performed By: #### L502.0250 #### [facility] [address] [place], [address] EMERGENCY DEPARTMENT Observed: 03/22/2018 Status: F Source: [place] SUMMARY 1:56 PM [facility] REPOSITORY [facility] Medical Records Department [address] [place] [address] Emergency Department Summary 03/22/18 1348 MR#: [id number] Acct: [id number] Name: PAULINA WOOD Rep #: [id number] : 1975 42 From: Walt Calderon MD [...] tract infection This note was generated with Swoopoation software. It may contain incorrect words, spelling, [...] your Primary Care Provider. Call [facility] ([phone]) or report to the closest Emergency Room. Call 911 if necessary. 03/22/18 1356 <Electronically signed by Walt Calderon MD> Date Walt Calderon MD Cosigner Signature (If Indicated): Date CC: Walt Marinelli MD CBC W/DIFF, AUTOMATED Collected: 03/22/2018 Status: F Source: [place] 12:50 PM [facility] REPOSITORY TYPE CODE TESTS RESULT OUT OF [...] Lymph 1.58 Performed By: #### L100.0100 #### [facility] [address] [place], [place], [address] BASIC METABOLIC Collected: 03/22/2018 Status: F Source: [place] PROFILE (BMP) 12:50 PM [facility] REPOSITORY TYPE CODE TESTS RESULT OUT OF [...] GAP 5 Performed By: #### L500.2500 #### [facility] [address] [place], [address] ABDOMEN SINGLE VIEW Observed: 03/22/2018 Status: F Source: [place] 12:42 PM [facility] REPOSITORY [facility] Imaging Services [address] [place] [address] Abdomen Single View MR#: [id number] Acct: [id number] Name: PAULINA WOOD Rep #: [id number] : 1975 M 42 From: Camden Carter MD PCP: Walt Marinelli MD Status: REG ER Study: Abdomen Single View Date of Exam: 03/22/18 Exam# [id number] Ordering Dr: Walt Calderon MD STUDY: X-RAY [...] Camden Carter MD at 13:48 EDT Tel [phone], Service support , CC: Walt Calderno MD; Walt Marinelli MD Inserter: Signed URINALYSIS, COMPLETE Collected: 03/22/2018 Status: F Source: [place] 12:15 PM [facility] REPOSITORY Order Comment: Order Date: 03/22/18 How [...] URINE SEEN Performed By: #### L400.0001 #### [facility] [address] [facility] [address] [place], [place], [address] ABDOMEN SINGLE VIEW Observed: 03/19/2018 Status: F Source: [place] 10:41 AM [facility] REPOSITORY [facility] Imaging Services [address] [place] [address] Abdomen Single View MR#: [id number] Acct: [id number] Name: PAULINA WOOD Rep #: [id number] : 1975 M 42 From: Monique Lagos MD PCP: Walt Marinelli MD Status: REG CLI Study: Abdomen Single View Date of Exam: 03/19/18 Exam# [id number] Ordering Dr: Fabio Pruitt MD STUDY: X-RAY [...] EDT Tel , Service support , CC: Fabio Pruitt MD; Walt Marinelli MD Inserter: Signed OFFICE VISIT REPORT Observed: 03/08/2018 Status: F Source: [place] 2:[address] [place] [address] OFFICE VISIT Date of Service: 03/08/18 MR#: [id number] Acct: [id number] Patient: PAULINA WOOD Rep #: [id number] : 1975 Provider: JANEL Alonso Age/Sex: 42/M [place] [facility] [place] Status: Signed Intake Vital Signs03/08/18 Height 5 ft 9 in 03/08/18 Weight: 262 lb 03/08/18 Body Mass Index (BMI) 38.7 03/08/18 Blood Pressure 140/100 03/08/18 Blood Pressure Location Lt brachial 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 This note was generated with Hyperfair dictation software. It may contain incorrect words, spelling, and punctuation that were not noted in checking the note before signing. Orders Orders: Coding Level of Care Code Off vis,new,level 2 Diagnoses Lower back pain M54.5 Suprapubic discomfort R10.2 03/08/18 1430 <Electronically signed by Dwight ISLAS> Date Dwight ISLAS Cosigner Signature: Date (if applicable) CC: EMERGENCY DEPARTMENT Observed: 03/08/2018 Status: F Source: BROOTEN SUMMARY 1:04 PM [facility] REPOSITORY [facility] Medical Records Department [address] [place] [address] Emergency Department Summary 03/08/18 1142 MR#: [id number] Acct: [id number] Name: PAULINA WOOD Rep #: [id number] : 1975 42 From: Pierre Rodriguez MD [...] be given outpatient urology follow-up. I did drug abuse counselor him that if his pain worsens, he has a fever, or has change in symptoms he should be reevaluated. He is comfortable with this plan of care. Treatment Plan: [] Disposition: Charge Impression: 1. 4 mm left-sided urolithiasis This note was generated with Hyperfair dictation software. It may contain incorrect words, spelling, and punctuation that were not noted in review of the chart prior to signing ED Disposition - Plan for ED Patient: Chief Complaint: Flank Pain Instructions: ED Stone Renal W Colic Prescriptions: Hydrocodone Bitart/Apap 5-325 [[place] 5MG-325MG] 1 tab PO Q6H PRN PRN [...] your Primary Care Provider. Call [facility] ([phone]) or report to the closest Emergency Room. Call 911 if necessary. 03/08/18 1304 <Electronically signed by Pierre Rodriguez MD> Date Pierre Rodriguez MD Cosigner Signature (If Indicated): Date CC: Walt Marinelli MD ABDOMEN/PELVIS WITHOUT Observed: 03/08/2018 Status: F Source: WINTER CONT 11:42 AM [facility] REPOSITORY [facility] Imaging Services [address] [address] Abdomen/Pelvis without Cont MR#: [id number] Acct: [id number] Name: PAULINA WOOD Rep #: [id number] : 1975 M 42 From: Rolando Fox MD PCP: Walt Marinelli MD Status: REG ER Study: Abdomen/Pelvis without Cont Date of Exam: 03/08/18 Exam# [id number] Ordering Dr: Pierre Rodriguez MD STUDY: CT [...] CC: Pierre Rodriguez MD; Walt Marinelli MD Inserter: Signed CBC W/DIFF, AUTOMATED Collected: 03/08/2018 Status: F Source: WINTER 11:00 AM [facility] REPOSITORY TYPE CODE TESTS RESULT OUT OF [...] Lymph 1.29 Performed By: #### L100.0100 #### [facility] Laboratory [address] [place], [address] BASIC METABOLIC Collected: 03/08/2018 Status: F Source: WINTER PROFILE (BMP) 11:00 AM [facility] REPOSITORY TYPE CODE TESTS RESULT OUT OF [...] GAP 8 Performed By: #### L500.2500 #### [facility] Laboratory [address] [place], [address] TESTOSTERONE, SERUM TOTAL Collected: 12/26/2017 Status: F Source: WINTER 9:47 AM [facility] REPOSITORY TYPE CODE TESTS RESULT OUT OF [...] CHANGED 09/12/2017 Performed By: #### L509.3000 #### [facility] Laboratory [address] [place], [place], [address] BASIC METABOLIC Collected: 12/26/2017 Status: F Source: WINTER PROFILE (BMP) 9:47 AM [facility] REPOSITORY TYPE CODE TESTS RESULT OUT OF [...] Performed By: #### L500.2500, L500.4100, L501.9520 #### [facility] [address] [place], [place], [address] LIPID PROFILE Collected: 12/26/2017 Status: F Source: WINTER 9:47 AM [facility] REPOSITORY TYPE CODE TESTS RESULT OUT OF [...] Performed By: #### L500.2500, L500.4100, L501.9520 #### [facility] Laboratory [address] [place], [address] THYROID STIM HORMONE Collected: 12/26/2017 Status: F Source: BROOTEN (TSH) 9:47 AM [facility] REPOSITORY TYPE CODE TESTS RESULT OUT OF RANGE REFERENCE UNITS LAB L501.9520 0.358-3.74 uIU/mL Normal TSH 0.90 Performed By: #### L500.2500, L500.4100, L501.9520 #### [facility] Laboratory [address] [place], [address] HEMOGLOBIN A1C Collected: 12/26/2017 Status: F Source: BROOTEN 9:47 AM [facility] REPOSITORY TYPE CODE TESTS RESULT OUT OF RANGE REFERENCE UNITS LAB L501.9985 4.2-6.3 % High HGB A1C 7.9 Performed By: #### L501.9985 #### [facility] Laboratory [address] [place], [address] ALLERGIES ALLERGIES DATE TYPE / CODE NAME / CODE REACTION SEVERITY SOURCE 10/13/2018 Drug No Known Unknown [facility] Allergy/4160 Allergies/F001 [facility] 36184(SNOMED 590800(RXNORM) Repository CT) 03/08/2018 Drug Unable to Unknown [facility] Allergy/4160 Assess/[id number] Hospital 07918(SNOMED 795(RXNORM) Repository CT) ENCOUNTERS ENCOUNTERS ADMIT/DISCHARGE ACCOUNT NUMBER ADMITTING ENCOUNTER LOCATION SOURCE CLASS 10/13/2018/10/13/19 [id number] Emergency [address] ding:ED Repository 10/02/2018 [id number] Ambulatory [facility] Repository 08/26/2018 [id number] Ambulatory [facility] ding:MFPLAB Repository 05/23/2018/05/23/20 [id number] Emergency [address] ding:ED Repository 05/15/2018 [id number] Ambulatory [facility] ding:MFPLAB Repository 03/22/2018/03/22/20 [id number] Emergency [address] ding:ED Repository 03/19/2018 [id number] Ambulatory [facility] ding:MTRAD Repository 03/08/2018/03/08/20 [id number] Emergency [address] ding:ED Repository 03/08/2018/03/08/20 [id number] Ambulatory [facility]MS[facility]: [address] Repository 12/26/2017 [id number] Ambulatory [facility] ding:MFPLAB Repository PAYERS PAYERS ENCOUNTER GUARANTOR PAYER SUBSCRIBER SOURCE 10/13/2018 PAULINA Esqueda Primary Insurance:[facility] PAULINA S Winter [id number] [facility] [id number] [address]Wnw: Number: Repository [id number] (HP) Date:0793-23-43[address] [address], [place] [address]WR: CHECK WEBSITE 10/13/2018 Secondary NOT GIVENUNK [place] Insurance:SELF PAY [facility] Number: Effective Repository Date:2018-10-13 08/26/2018 PAULINA S Primary Insurance:[facility] PAULINA S Winter [id number] [facility] [id number] General Hospital [address]Dxb: Number: Repository [id number] (HP) Date:4402-69-46[address] [address]WTPTQDT, [place] [address]WY: CHECK WEBSITE 08/26/2018 Secondary NOT GIVENUNK [place] Insurance:SELF PAY [facility] Number: Effective Repository Date:2018-06-05 05/23/2018 PAULINA S Primary Insurance:[facility] PAULINA Max [id number] [place], [place] [address]OB: [facility] [id number] General Hospital [address]Jje: Number: Repository [id number] (HP) Date:7756-27-22[address] [address], [place] [address]YB: CHECK WEBSITE 05/23/2018 Secondary NOT GIVENUNK [place] Insurance:SELF PAY [facility] Number: Effective Repository Date:2018-05-23 05/15/2018 PAULINA S Primary Insurance:[facility] PAULINA Max [id number] [place], [place] [address]OB: [facility] [id number] General Hospital [address]Eaz: Number: Repository [id number] (HP) Date:8189-39-06[address] [address], [place] [address]GO: CHECK WEBSITE 05/15/2018 Secondary NOT GIVENUNK [place] Insurance:SELF PAY [facility] Number: Effective Repository Date:2018-05-15 03/22/2018 PAULINA S Primary Insurance:[facility] PAULINA WOOD[address] [facility]: [facility] [id number] Hospital [place] [address]Ldp: Number: Repository [id number] (HP) Date:5804-97-34[address] [address], [place] [address]RM: CHECK WEBSITE 03/22/2018 Secondary NOT GIVENUNK [place] Insurance:SELF PAY [facility] Number: Effective Repository Date:2018-03-22 03/19/2018 PAULINA S Primary Insurance:[facility] PAULINA WOOD[address] [facility] [id number] [place] [address]Whf: Number: Repository [id number] (HP) Date:6197-24-02UY [address] [address], [place] [address]JF: CHECK WEBSITE 03/19/2018 Secondary NOT GIVENUNK [place] Insurance:SELF PAY [facility] Number: Effective Repository Date:2018-03-19 03/08/2018 PAULINA S Primary Insurance:[facility] PAULINA Max [id number] [facility] [address] [place] [address]Pcc: Number: Repository [id number] (HP) Date:0995-68-75[address] [address]ZUYFIL[place], [place] [address]WI: CHECK WEBSITE 03/08/2018 Secondary NOT GIVENUNK [place] Insurance:SELF PAY [facility] Number: Effective Repository Date:2018-03-08 03/08/2018 PAULINA S Primary Insurance:[facility] PAULINA WOOD[address] [facility] [address] [place] [address]Xba: Number: Repository [id number] (HP) Date:3448-90-54RG [address] [address]ZXWXY, [place] [address]LY: CHECK WEBSITE 03/08/2018 Secondary NOT GIVENUNK [place] Insurance:SELF PAY [facility] Number: Effective Repository Date:2018-03-08 12/26/2017 Paulina S Primary Insurance:[facility] Paulina Wood[address] [facility] [address] [place] [address]Ubk: Number: Repository [id number] (HP) Date:4090-04-25[address] [address]XKDAYWMSL, [place] [address]ZI: CHECK WEBSITE 12/26/2017 Secondary NOT GIVENUNK [place] Insurance:SELF PAY [facility] Number: Effective Repository Date:2017-12-26
== END 2018-10-13 23:11 | disposition home or self-care (01) ==
LOC: ED 19:45
PROVIDERS: Emergency Provider Emergency Medicine; Family Provider Family Medicine; PCP Family Medicine
DX: J06.9 Acute upper respiratory infection, unspecified (principal); R06.00 Dyspnea, unspecified; R00.0 Tachycardia, unspecified; E11.8 Type 2 diabetes mellitus with unspecified complications; Z79.4 Long term (current) use of insulin; Z79.82 Long term (current) use of aspirin; Z79.899 Other long term (current) drug therapy; Z87.01 Personal history of pneumonia (recurrent)
CPT/HCPCS: 36415; 71046; 71250; 80053; 83605; 85025; 87040; 87804; 93005; 94640; 96361; 96374; 99285; J7030; A4216

== ENCOUNTER → 2018-12-16 12:00 | Outpatient (CLI) | payer OTHER, SELFPAY ==
[2018-10-13 19:19] VITALS: BMI 39.5
== END ==
PROVIDERS: Family Provider Family Medicine; PCP Family Medicine
DX: G47.33 Obstructive sleep apnea (adult) (pediatric) (principal)
CPT/HCPCS: 95806

== ENCOUNTER → 2019-03-19 11:06 | Outpatient (CLI) | payer OTHER, SELFPAY ==
[2019-02-12 08:10] VITALS: BMI 37.3
[2019-03-19 12:28] LABS: Absolute Lymphocyte Count 1.49 X10^3/ul (0.83-4.51); Absolute Neutrophil Count 4.5 X10^3/uL (2.0-7.7); Basophil# 0.02 X10^3/uL; Basophil% 0.3 % (0-1); Eosinophil# 0.18 X10^3/uL; Eosinophils% 2.7 % (0-5); Hematocrit 45.4 % (40-54); Hemoglobin 15.6 g/dl (13.0-16.5); Lymphocyte # 1.49 X10^3/ul (4.0); Lymphocyte % 22.3 % (19-41); Mean Corp Hgb Conc 34.4 g/gl (32-36); Mean Corpuscular Hgb 27.9 pg (27.0-32.0); Mean Corpuscular Volume 81.2 fL (80-94); Mean Platelet Vol. 10.2 fl (6.2-12.0); Monocyte# 0.51 X10^3/uL; Monocyte% 7.6 % (0-10); Neutrophil # 4.47 X10^3/uL (2.7-7.7); Platelet Count 226 K/mm3 (150-450); RBC Distribution Width CV 12.7 % (11.6-14.6); RBC Distribution Width SD 37.4 fl (35.1-43.9); Red Blood Count 5.59 M/mm3 (4.6-6.2); White Blood Count 6.7 K/mm3 (4.4-11.0)
[2019-03-19 12:36] LABS: POSITIVE COUNT NO; POSITIVE DIFFERENTIAL NO; POSITIVE MORPHOLOGY NO
[2019-03-19 13:20] LABS: ALB/GLOB Ratio 1.1 RATIO (0.9-2.4); AST(SGOT) 21 U/L (15-37); Alanine Aminotransfer ALT/SGPT 43 U/L (16-61); Albumin, Serum 3.6 g/dL (3.2-5.0); Alkaline Phosphatase 71 U/L (45-117); Anion Gap 9 (5-15); BUN 19 mg/dL (7-18); BUN/Creat Ratio 18.4 RATIO (10-20); Calcium,Total 8.7 mg/dL (8.5-10.1); Chloride 103 mmol/L (98-107); Creatinine, Serum 1.03 mg/dL (0.70-1.30); EST Glomerular Filtration Rate 84 mL/min (>60); Est Glom Filt Rate - Afr Amer 101 mL/min (>60); Globulin 3.4 g/dL (2.2-4.2); Glucose 254 mg/dL (74-106); Potassium 4.3 mmol/L (3.5-5.1); Sodium Level 140 mmol/L (136-145)
[2019-03-21 13:52] LABS: C-Peptide < 0.1 ng/mL (1.1-4.4); Testosterone Free 4.9 pg/mL (6.8-21.5)
== END ==
PROVIDERS: Family Provider Family Medicine; PCP Family Medicine
DX: Z01.818 Encounter for other preprocedural examination (principal); E11.9 Type 2 diabetes mellitus without complications; E29.1 Testicular hypofunction; G47.33 Obstructive sleep apnea (adult) (pediatric)
CPT/HCPCS: 36415; 80053; 84402; 84681; 85025

== ENCOUNTER → 2019-04-14 14:06 | Outpatient (CLI) | payer OTHER, SELFPAY ==
[2019-02-12 08:10] VITALS: BMI 37.3
[2019-04-14 15:58] LABS: Anion Gap 6 (5-15); BUN 21 mg/dL (7-18); BUN/Creat Ratio 18.6 RATIO (10-20); Calcium,Total 9.4 mg/dL (8.5-10.1); Chloride 102 mmol/L (98-107); Cholesterol 143 mg/dL (200); Creatinine, Serum 1.13 mg/dL (0.70-1.30); EST Glomerular Filtration Rate 75 mL/min (>60); Est Glom Filt Rate - Afr Amer 91 mL/min (>60); Glucose 121 mg/dL (74-106); High Density Lipoprotein 34 mg/dL; Potassium 4.5 mmol/L (3.5-5.1); Sodium Level 137 mmol/L (136-145); Triglycerides 103 mg/dL; Very Low Density Lipoprotein 21 mg/dL (5-40)
[2019-04-14 16:05] LABS: Hemoglobin A1c 7.5 % (4.2-6.3)
== END ==
PROVIDERS: Family Provider Family Medicine; PCP Family Medicine; Visit Provider Family Medicine
DX: E11.9 Type 2 diabetes mellitus without complications (principal); E29.1 Testicular hypofunction
CPT/HCPCS: 36415; 80048; 80061; 83036; 84403

== ENCOUNTER → 2019-06-13 16:29 | Outpatient (CLI) | payer OTHER, SELFPAY ==
[2019-02-12 08:10] VITALS: BMI 37.3
[2019-06-13 17:36] LABS: Absolute Lymphocyte Count 1.62 X10^3/uL (0.83-4.51); Absolute Neutrophil Count 3.5 X10^3/uL (2.0-7.7); Basophil# 0.04 X10^3/uL; Basophil% 0.7 % (0-1); Eosinophil# 0.08 X10^3/uL; Eosinophils% 1.4 % (0-5); Hematocrit 43.8 % (40-54); Lymphocyte # 1.62 X10^3/ul (4.0); Lymphocyte % 28.6 % (19-41); Mean Corpuscular Hgb 28.4 pg (27.0-32.0); Mean Corpuscular Volume 88.8 fL (80-94); Mean Platelet Vol. 10.3 fl (6.2-12.0); Monocyte# 0.38 X10^3/uL; Monocyte% 6.7 % (0-10); NRBC Flagged by Analyzer 0 % (0-5); Neutrophil # 3.53 X10^3/uL (2.7-7.7); Neutrophil % 62.4 % (47-70); Platelet Count 228 K/mm3 (150-450); RBC Distribution Width CV 14.3 % (11.6-14.6); RBC Distribution Width SD 45.8 fl (35.1-43.9); Red Blood Count 4.93 M/mm3 (4.6-6.2); White Blood Count 5.7 K/mm3 (4.4-11.0)
[2019-06-13 18:05] LABS: ALB/GLOB Ratio 1.1 RATIO (0.9-2.4); AST(SGOT) 15 U/L (15-37); Alanine Aminotransfer ALT/SGPT 24 U/L (16-61); Albumin, Serum 3.7 g/dL (3.2-5.0); Alkaline Phosphatase 95 U/L (45-117); Anion Gap 7 (5-15); BUN 18 mg/dL (7-18); BUN/Creat Ratio 20.3 RATIO (10-20); Calcium,Total 8.8 mg/dL (8.5-10.1); Chloride 107 mmol/L (98-107); Creatinine, Serum 0.89 mg/dL (0.70-1.30); EST Glomerular Filtration Rate 99 mL/min (>60); Est Glom Filt Rate - Afr Amer 120 mL/min (>60); Ferritin 64 ng/mL (26-388); Globulin 3.4 g/dL (2.2-4.2); Glucose 161 mg/dL (74-106); Iron 52 ug/dL (65-175); Protein, Total 7.1 g/dL (6.4-8.2); Sodium Level 144 mmol/L (136-145)
[2019-06-13 18:10] LABS: Vitamin B12 1083 pg/mL (211-911); Vitamin D,25 Hydroxy 61.9 ng/mL (29.95-100.01)
[2019-06-13 18:11] LABS: PTHIN 94.4 pg/mL (18.4-80.1)
[2019-06-18 12:08] LABS: Vitamin B1, Thiamine 151.2 nmol/L (66.5-200.0)
[2019-06-18 13:50] LABS: Copper, Serum or Plasma 115 ug/dL (72-166)
== END ==
PROVIDERS: Family Provider Family Medicine; PCP Family Medicine; Referring Provider Family Medicine
DX: E55.9 Vitamin D deficiency, unspecified (principal); E53.8 Deficiency of other specified B group vitamins; K90.9 Intestinal malabsorption, unspecified; Z98.84 Bariatric surgery status
CPT/HCPCS: 36415; 80053; 82306; 82525; 82607; 82728; 82746; 83540; 83970; 84425; 85025

== ENCOUNTER → 2019-09-12 16:39 | Outpatient (CLI) | payer OTHER, SELFPAY ==
[2019-02-12 08:10] VITALS: BMI 37.3
[2019-09-12 17:57] LABS: Anion Gap 5 (5-15); BUN 20 mg/dL (7-18); BUN/Creat Ratio 17.4 RATIO (10-20); Calcium,Total 8.9 mg/dL (8.5-10.1); Chloride 106 mmol/L (98-107); Cholesterol 153 mg/dL (200); Creatinine, Serum 1.15 mg/dL (0.70-1.30); EST Glomerular Filtration Rate 73 mL/min (>60); Est Glom Filt Rate - Afr Amer 89 mL/min (>60); Glucose 179 mg/dL (74-106); High Density Lipoprotein 41 mg/dL; Potassium 3.8 mmol/L (3.5-5.1); Sodium Level 141 mmol/L (136-145); Triglycerides 148 mg/dL; Very Low Density Lipoprotein 30 mg/dL (5-40)
== END ==
PROVIDERS: Family Provider Family Medicine; PCP Family Medicine; Referring Provider Family Medicine; Visit Provider Family Medicine
DX: E29.1 Testicular hypofunction (principal); I10 Essential (primary) hypertension
CPT/HCPCS: 36415; 80048; 80061; 84403

== ENCOUNTER → 2019-11-11 16:21 | Outpatient (CLI) | payer OTHER, SELFPAY ==
[2019-02-12 08:10] VITALS: BMI 37.3
[2019-11-11 17:33] LABS: Absolute Lymphocyte Count 1.86 X10^3/uL (0.83-4.51); Absolute Neutrophil Count 3.5 X10^3/uL (2.0-7.7); Basophil# 0.05 X10^3/uL; Basophil% 0.8 % (0-1); Eosinophil# 0.15 X10^3/uL; Eosinophils% 2.5 % (0-5); Hematocrit 46.3 % (40-54); Hemoglobin 15.5 g/dL (13.0-16.5); Lymphocyte # 1.86 X10^3/ul (4.0); Lymphocyte % 30.4 % (19-41); Mean Corp Hgb Conc 33.5 g/dL (32-36); Mean Corpuscular Volume 86.5 fL (80-94); Mean Platelet Vol. 9.8 fl (6.2-12.0); Monocyte% 8.2 % (0-10); NRBC Flagged by Analyzer 0 % (0-5); Neutrophil # 3.54 X10^3/uL (2.7-7.7); Neutrophil % 57.8 % (47-70); Platelet Count 254 K/mm3 (150-450); RBC Distribution Width CV 13.1 % (11.6-14.6); RBC Distribution Width SD 40.7 fl (35.1-43.9); Red Blood Count 5.35 M/mm3 (4.6-6.2); White Blood Count 6.1 K/mm3 (4.4-11.0)
[2019-11-11 18:04] LABS: Vitamin B12 > 2000 pg/mL (211-911); Vitamin D,25 Hydroxy 37.6 ng/mL (29.95-100.01)
[2019-11-11 18:08] LABS: ALB/GLOB Ratio 1.1 RATIO (0.9-2.4); AST(SGOT) 21 U/L (15-37); Alanine Aminotransfer ALT/SGPT 38 U/L (16-61); Alkaline Phosphatase 99 U/L (45-117); Anion Gap 5 (5-15); BUN 19 mg/dL (7-18); BUN/Creat Ratio 17.9 RATIO (10-20); Calcium,Total 9.2 mg/dL (8.5-10.1); Chloride 109 mmol/L (98-107); Creatinine, Serum 1.06 mg/dL (0.70-1.30); EST Glomerular Filtration Rate 81 mL/min (>60); Est Glom Filt Rate - Afr Amer 98 mL/min (>60); Ferritin 74 ng/mL (26-388); Globulin 3.6 g/dL (2.2-4.2); Glucose 75 mg/dL (74-106); Iron 86 ug/dL (65-175); Iron Binding Capacity,Total 333 ug/dL (250-450); PERCENT IRON SATURATION 25.8 % (15.0-55.0); Protein, Total 7.6 g/dL (6.4-8.2); Sodium Level 143 mmol/L (136-145)
[2019-11-12 09:34] LABS: PTHIN 72.3 pg/mL (18.4-80.1)
[2019-11-15 14:07] LABS: Vitamin B1, Thiamine 136.9 nmol/L (66.5-200.0)
[2019-11-15 17:07] LABS: Copper, Serum or Plasma 112 ug/dL (72-166)
== END ==
PROVIDERS: PCP Family Medicine
DX: E55.9 Vitamin D deficiency, unspecified (principal); D64.9 Anemia, unspecified; K90.9 Intestinal malabsorption, unspecified; E53.8 Deficiency of other specified B group vitamins
CPT/HCPCS: 36415; 80053; 82306; 82525; 82607; 82728; 82746; 83540; 83550; 83970; 84425; 85025

== ENCOUNTER → 2020-04-12 11:41 | Outpatient (CLI) | payer OTHER, SELFPAY ==
[2020-01-30 08:20] VITALS: BMI 37.3
[2020-04-12 15:32] LABS: Absolute Lymphocyte Count 1.61 X10^3/uL (0.83-4.51); Absolute Neutrophil Count 3.1 X10^3/uL (2.0-7.7); Basophil# 0.04 X10^3/uL; Basophil% 0.8 % (0-1); Eosinophil# 0.07 X10^3/uL; Eosinophils% 1.4 % (0-5); Hematocrit 41.6 % (40-54); Hemoglobin 13.9 g/dL (13.0-16.5); Lymphocyte # 1.61 X10^3/ul (4.0); Lymphocyte % 31.6 % (19-41); Mean Corp Hgb Conc 33.4 g/dL (32-36); Mean Corpuscular Hgb 29.7 pg (27.0-32.0); Mean Corpuscular Volume 88.9 fL (80-94); Mean Platelet Vol. 10.8 fl (6.2-12.0); Monocyte% 5.9 % (0-10); NRBC Flagged by Analyzer 0 % (0-5); Neutrophil # 3.07 X10^3/uL (2.7-7.7); Neutrophil % 60.1 % (47-70); Platelet Count 208 K/mm3 (150-450); RBC Distribution Width CV 12.8 % (11.6-14.6); Red Blood Count 4.68 M/mm3 (4.6-6.2); White Blood Count 5.1 K/mm3 (4.4-11.0)
[2020-04-12 15:56] LABS: ALB/GLOB Ratio 1.2 RATIO (0.9-2.4); AST(SGOT) 38 U/L (15-37); Alanine Aminotransfer ALT/SGPT 75 U/L (16-61); Albumin, Serum 3.7 g/dL (3.2-5.0); Alkaline Phosphatase 80 U/L (45-117); Anion Gap 3 (5-15); BUN 18 mg/dL (7-18); BUN/Creat Ratio 17.3 RATIO (10-20); Calcium,Total 8.6 mg/dL (8.5-10.1); Chloride 108 mmol/L (98-107); Creatinine, Serum 1.04 mg/dL (0.70-1.30); EST Glomerular Filtration Rate 82 mL/min (>60); Est Glom Filt Rate - Afr Amer 99 mL/min (>60); Ferritin 44 ng/mL (26-388); Globulin 3.2 g/dL (2.2-4.2); Glucose 132 mg/dL (74-106); Iron 68 ug/dL (65-175); Protein, Total 6.9 g/dL (6.4-8.2); Sodium Level 140 mmol/L (136-145)
[2020-04-13 08:52] LABS: PTHIN 87.1 pg/mL (18.4-80.1)
[2020-04-14 14:01] LABS: Vitamin B12 660 pg/mL (211-911); Vitamin D,25 Hydroxy 38.2 ng/mL
[2020-04-16 16:09] LABS: Vitamin B1, Thiamine 120.5 nmol/L (66.5-200.0)
[2020-04-16 20:09] LABS: Copper, Serum or Plasma 92 ug/dL (72-166)
== END ==
PROVIDERS: PCP Family Medicine; Referring Provider Family Medicine
DX: D64.9 Anemia, unspecified (principal); K90.9 Intestinal malabsorption, unspecified; E53.8 Deficiency of other specified B group vitamins; Z98.84 Bariatric surgery status
CPT/HCPCS: 36415; 80053; 82306; 82525; 82607; 82728; 82746; 83540; 83970; 84425; 85025

== ENCOUNTER → 2020-05-14 16:20 | Outpatient (CLI) | payer OTHER, SELFPAY ==
[2020-01-30 08:20] VITALS: BMI 37.3
[2020-05-14 17:30] LABS: Absolute Lymphocyte Count 2.08 X10^3/uL (0.83-4.51); Absolute Neutrophil Count 3.5 X10^3/uL (2.0-7.7); Basophil# 0.05 X10^3/uL; Basophil% 0.8 % (0-1); Eosinophil# 0.11 X10^3/uL; Eosinophils% 1.8 % (0-5); Hematocrit 44.3 % (40-54); Hemoglobin 14.9 g/dL (13.0-16.5); Lymphocyte # 2.08 X10^3/ul; Lymphocyte % 33.6 % (19-41); Mean Corp Hgb Conc 33.6 g/dL (32-36); Mean Corpuscular Hgb 29.2 pg (27.0-32.0); Mean Corpuscular Volume 86.9 fL (80-94); Mean Platelet Vol. 10.4 fl (6.2-12.0); Monocyte# 0.48 X10^3/uL; Monocyte% 7.8 % (0-10); NRBC Flagged by Analyzer 0 % (0-5); Neutrophil # 3.46 X10^3/uL (2.7-7.7); Neutrophil % 55.8 % (47-70); Platelet Count 249 K/mm3 (150-450); RBC Distribution Width CV 12.2 % (11.6-14.6); White Blood Count 6.2 K/mm3 (4.4-11.0)
[2020-05-14 17:53] LABS: ALB/GLOB Ratio 1.1 RATIO (0.9-2.4); AST(SGOT) 58 U/L (15-37); Alanine Aminotransfer ALT/SGPT 109 U/L (16-61); Albumin, Serum 3.8 g/dL (3.2-5.0); Alkaline Phosphatase 94 U/L (45-117); Anion Gap 3 (5-15); BUN 17 mg/dL (7-18); BUN/Creat Ratio 13.9 RATIO (10-20); Bilirubin, Direct 0.14 mg/dL (0.00-0.30); Calcium,Total 8.3 mg/dL (8.5-10.1); Chloride 105 mmol/L (98-107); Cholesterol 190 mg/dL (200); Creatinine, Serum 1.22 mg/dL (0.70-1.30); EST Glomerular Filtration Rate 68 mL/min (>60); Est Glom Filt Rate - Afr Amer 83 mL/min (>60); Globulin 3.4 g/dL (2.2-4.2); Glucose 127 mg/dL (74-106); High Density Lipoprotein 47 mg/dL; LDH 165 U/L (87-241); Phosphorus 3.9 mg/dL (2.5-4.9); Potassium 3.8 mmol/L (3.5-5.1); Protein, Total 7.2 g/dL (6.4-8.2); Sodium Level 138 mmol/L (136-145); Triglycerides 207 mg/dL; Uric Acid 5.3 mg/dL (3.5-7.2); Very Low Density Lipoprotein 41 mg/dL (5-40)
== END ==
PROVIDERS: PCP Family Medicine; Referring Provider Family Medicine; Visit Provider Family Medicine
DX: R69 Illness, unspecified (principal)

== ENCOUNTER 2020-06-02 00:21 | Emergency (ER) | payer OTHER, SELFPAY ==
[2020-01-30 08:20] VITALS: BMI 37.3
[2020-06-02 00:22] VITALS: BP 163/84; PULSE 102; RESP 14; TEMP 35.8; O2SAT 96; BMI 30.5
--- NOTE | 2020-06-02 00:42 | ED.VIS.LOWEX ---
History of Present Illness Chief Complaint: Lower Extremity Injury Informant: Patient Occurred: Today Mechanism/Context: Injury Quality of Pain: Throbbing Narrative: Patient is a 44-year-old male with a history of type 1 diabetes mellitus on insulin pump presenting with right great toenail injury. Patient was straining door by the stairs and his foot was underneath the door. The door caught his toe and ripped off part of his nail. The door seem to have gone over the nail and it was not a crush injury. He did have some bleeding initially. Patient soaked his foot and put peroxide on it prior to arrival. He has mild pain but declines any pain medication right now. Did not take anything prior to arrival. As he is a type I diabetic he just wanted to be evaluated. He has seen Dr. Cheng in the past. Tetanus Immunization: Unknown Past Medical History - Allergies and Home Meds Allergies/Adverse Reactions: Allergies No Known Allergies Allergy (Verified 06/02/20 00:24) Primary Care Physician: Gabbi Cheng DPM [STAFF PHYSICIAN] - 1 Day Walt Marinelli MD [Primary Care Provider] - Past Medical History: - - DM1 Surgical History: no surgical history, gastric bypass Lives: With Family Smoking Status: Never smoker Review of Systems General: Denies: Chills, Fever, Sweats Eyes: Denies: Visual changes - bilaterally, Diplopia ENT: Denies: Rhinorrhea, Sore throat Cardiovascular: Denies: Chest pain, Palpitations Respiratory: Denies: Dyspnea, Cough, Dyspnea on exertion Gastrointestinal: Denies: Abdominal pain, Nausea, Vomiting Musculoskeletal: Reports: Extremity Pain - right great toe . Denies: Back pain Skin: Denies: Rash, Wounds Neurological: Denies: Headache, Weakness, Numbness Physical Exam Vital Signs/Narrative: Vital Signs Temp Pulse Resp BP Pulse Ox 06/02/20 00:22 96.4 F L 102 H 14 163/84 H 96 Inital Vital Signs reviewed: Yes - Extremity Exam Right Foot: Negative for: Abrasion, Contusion, Deformity, Edema, Hematoma, Limited ROM Right Toe: Deformity, - - Deformity of the right great toenail with partial avulsion. The lateral base of the nail was exposed. At the lateral distal aspect patient does have some superficial abrasions. No active bleeding. No subungual hematoma noted.. Negative for: Edema, Hematoma, Limited ROM General: Well nourished, Well developed Head: Normocephalic, Atraumatic Eyes: Perrl, EOMI ENT: No Trauma, Moist Mucous Membranes Neck: Nontender, Full ROM Cardiovascular: Regular rate, Regular rhythm, No murmurs Respiratory: No distress, CTA bilaterally, Chest nontender Abdomen: Soft, Nontender Skin: Normal color, No rash, Trauma - See above Neurological: Alert, Oriented x3, Cranial nerves II-XII grossly intact, Normal Strength, Normal Sensation Psychological: Normal affect Diagnostic/Tx/Re-eval - Medical Decision Making Patient is evaluated for injury to his right great toenail. He is especially concerned because he is a type I diabetic. Tetanus is updated. I do not suspect any underlying fracture. Case is discussed with his nuclear radiation engineer, Dr. Cheng, recommends removal of the nail. She also states she is happy to see him in the office to remove the nail tomorrow. Patient is given option for removal today versus tomorrow and states he like to wait for her tomorrow. He states he does not anything for pain control. He states he is off work tomorrow. He denies any other complaints at this time. Localized wound care is applied. Patient is counseled on signs and symptoms requiring return to the emergency room. Patient verbalizes agreement and understand this plan. Patient discharged home in stable and improved condition. ED Disposition - Plan for ED Patient: Disposition: Home or Assisted Living Diagnosis: Nail avulsion of toe, Need for tetanus booster Instructions: ED AVULSION Nail Complete Referrals: Walt Marinelli MD [Primary Care Provider] - Gabbi Cheng DPM [STAFF PHYSICIAN] - 1 Day Additional Instructions: Please call your nuclear radiation engineer tomorrow to be seen the same day.
[2020-06-02] MEDS: Diphth,Pertuss(Acell),Tet Vac 0.5 ML Vial IM (00:59)
== END 2020-06-02 01:28 | disposition home or self-care (01) ==
PROVIDERS: Emergency Provider Emergency Medicine; PCP Family Medicine
DX: S91.201A Unspecified open wound of right great toe with damage to nail, initial encounter (principal); X58.XXXA Exposure to other specified factors, initial encounter; Y93.89 Activity, other specified; Y92.9 Unspecified place or not applicable; E10.9 Type 1 diabetes mellitus without complications; Z79.4 Long term (current) use of insulin; Z96.41 Presence of insulin pump (external) (internal)
CPT/HCPCS: 90471; 90715; 99283

== ENCOUNTER → 2020-10-29 10:29 | Outpatient (CLI) | payer OTHER, SELFPAY ==
[2020-10-04 11:21] VITALS: BMI 30.5
[2020-10-29 12:32] LABS: Anion Gap 3 (5-15); BUN 11 mg/dL (7-18); BUN/Creat Ratio 10.7 RATIO (10-20); Calcium,Total 8.6 mg/dL (8.5-10.1); Chloride 105 mmol/L (98-107); Cholesterol 135 mg/dL (200); Creatinine, Serum 1.03 mg/dL (0.70-1.30); EST Glomerular Filtration Rate 83 mL/min (>60); Est Glom Filt Rate - Afr Amer 100 mL/min (>60); Glucose 295 mg/dL (74-106); High Density Lipoprotein 44 mg/dL; Potassium 4.4 mmol/L (3.5-5.1); Sodium Level 137 mmol/L (136-145); Triglycerides 90 mg/dL; Very Low Density Lipoprotein 18 mg/dL (5-40)
[2020-10-29 12:36] LABS: Hemoglobin A1c 7.2 % (3.8-5.6)
== END ==
PROVIDERS: PCP Family Medicine; Referring Provider Family Medicine; Visit Provider Family Medicine
DX: E29.1 Testicular hypofunction (principal); E11.9 Type 2 diabetes mellitus without complications
CPT/HCPCS: 36415; 80048; 80061; 83036; 84403

== ENCOUNTER 2021-02-09 19:47 | Emergency (ER) | payer OTHER, SELFPAY ==
[2021-01-07 16:00] VITALS: BMI 28.8
[2021-02-09 19:48] VITALS: BP 167/95; PULSE 92; RESP 16; TEMP 36.4; O2SAT 99; BMI 29.4
--- NOTE | 2021-02-09 20:06 | EDS_ITS ---
HPI HPI - Psych History of Present Illness Chief Complaint: Mental Health Informant: patient and spouse/S.O. Onset/Context/Timing Onset: Weeks Context: Gradual Onset Timing: Continuous Current Severity: Mild Associated Symptoms Associated Symptoms - Psych: Positive for Depressed, Decreased Concentration and Suicidal Thoughts Specific plan (suicidal thought): Patient attempted to buy a gun but was unable. Narrative Narrative: 45-year-old male 10-year history of depression. History of prior voluntary admit 10 years ago. He has been on antidepressants since that time. States his been more stress at work recently. Does not think his meds are working as well. Denies any prior suicide attempt but says he has thought about it. Family is concerned because he said he is recently been looking up information about suicide on the Internet. He states he was just curious but did not think it ever actually do anything. Reportedly yesterday he did have a handful of pills but did not actually take him. He states he was just looking for more attention. My understanding is also that he attempted to buy a gun recently and was denied because of his past medical history of depression. Prior similar symptoms: Yes Recent Illness/Hospitalization: No PFSH PFSH Medical History Anxiety Arthralgia Depression Diabetes Dyslipidemia Myalgia Severe headache Tiredness Home Medications cholecalciferol (vitamin D3) 5,000 unit PO DAILY 03/08/18 [History Last Taken Unknown] citalopram 20 mg PO DAILY 03/08/18 [History Last Taken Unknown] insulin aspart U-100 1 unit CONT INF DAILY 03/08/18 [History Last Taken 03/22/18] multivitamin 1 ea PO DAILY 03/08/18 [History Last Taken Unknown] bupropion HCl 150 mg tablet,12 hr sustained-release 300 mg PO BID ea 01/16/20 [History Last Taken Unknown] glucagon 3 mg/actuation nasal spray 3 mg INTRANASAL ONCE #2 ea 01/16/20 [Rx Last Taken Unknown] testosterone cypionate 200 mg/mL intramuscular oil 100 mg IM Q2W #1 ml 01/16/20 [Rx Last Taken Unknown] Allergy/AdvReac Type Severity Reaction Status Date / Time No Known Allergies Allergy Verified 02/09/21 19:51 Surgical History History of Mikael-en-Y gastric bypass Social History Smoking Status: Never smoker alcohol intake: current alcohol intake frequency: a few times a month Alcohol type: beer ROS ROS ED ROS Narrative Patient denies any recent illness. Says she has had some intermittent diarrhea which she attributed to his nerves. Review of Systems ROS Unobtainable: Denies due to encephalopathy Constitutional Constitutional ED: Denies fever(s) Eyes Eyes: Denies change in vision ENT ENT ED: Denies ear pain or sore throat Cardiovascular Cardiovascular: Denies chest pain Respiratory/Chest Respiratory/Chest: Denies dyspnea Gastrointestinal Gastrointestinal: Reports diarrhea; Denies abdominal pain, nausea or vomiting Genitourinary Genitourinary ED: Denies dysuria Musculoskeletal Musculoskeletal: Denies myalgias Integumentary Denies rash Neurologic Neurologic: Denies headache(s) Psychiatric Psychiatric: Denies depression Endocrine Endocrinology: Denies polyuria Hematologic/Lymphatic Hematologic/Lymphatic: Denies easy bruising Allergic/Immunologic Allergic/Immunologic ED: Denies urticaria EXAM Physical Exam Narrative Exam Narrative: Middle-aged male no acute distress. Vital signs stable afebrile. HEENT exam unremarkable. Lungs are clear. Heart regular rhythm no murmur. Abdomen soft nontender. Extremities moves all 4. No injuries. No track dang. No edema. Back nontender. Neurologically is awake alert with no focal motor or sensory deficits. No smell of alcohol with a toxidrome. Const Vital Signs: 02/09/21 19:48 02/09/21 20:50 02/09/21 21:00 Temperature 97.6 F L Temperature Source Temporal Pulse Rate 92 Respiratory Rate 16 16 16 Blood Pressure 167/95 H Blood Pressure Mean 119 Pulse Ox 99 Oxygen Delivery Method Room Air Positive well nourished and well developed General Appearance ED: well developed HEENT normocephalic and atraumatic Eyes PERRL and EOMs intact bilaterally Neck no lymphadenopathy, supple and no JVD General: Negative for tenderness Resp normal respiratory effort and clear to auscultation bilaterally Cardio no murmurs Rate: regular rate Rhythm: regular rhythm GI non-tender, non-distended and no masses Auscultation: normoactive bowel sounds Palpation: soft; Negative for tender Back/Spine no CVA tenderness Extremity normal to inspection General Extremety ED: Negative for edema or tenderness General Extremity: Negative for edema Neuro oriented x3 Sensorium / Orientation: alert, oriented to person, oriented to place and oriented to time Psych mental status grossly normal, speech normal and activity/motor behavior normal Appearance: grossly normal, appropriate and well kempt Attitude: calm Activity / Motor Behavior: appropriate eye contact Speech: normal speech, No incoherent and No slurred Mood & Affect: depressed Thought Process: normal thought process Memory / Cognition: memory grossly intact Insight: insight good Judgement: judgement good Skin Rashes: no rashes MDM MDM MDM Narrative Medical decision making narrative: Patient has a normal exam. No signs of a toxidrome. He is calm and cooperative. I am having him and his family speak to the dialysis social worker to help determine treatment plan. Currently he is undergoing ED mental health labs. If he gets admitted. Lab Data Attestation: I reviewed the patient's lab results. Lab results narrative: Labs reviewed and unremarkable. Normal CBC. Normal chemistries. Alcohol level negative. Tox screen positive for methamphetamines. Covid test negative. Patient has been medically cleared for transfer to psychiatric facility. Labs: Laboratory Results - last 24 hr 02/09/21 02/09/21 02/09/21 20:47 20:47 20:47 WBC 7.0 RBC 5.22 Hgb 15.2 Hct 44.6 MCV 85.4 MCH 29.1 MCHC 34.1 RDW Std Deviation 37.8 RDW Coeff of Franco 12.1 Plt Count 209 MPV 9.7 Immature Gran % (Auto) 0.100 Neut % (Auto) 69.1 Lymph % (Auto) 21.8 [place] % (Auto) 7.3 Eos % (Auto) 1.0 Baso % (Auto) 0.7 Absolute Neuts (auto) 4.9 Absolute Lymphs (auto) 1.53 Nucleated RBC % 0 Sodium 138 Potassium 4.1 Chloride 105 Carbon Dioxide 29.0 Anion Gap 4 L BUN 14 Creatinine 0.96 Estim Creat Clear Calc 100.33 Est GFR (MDRD) Af Amer 109 Est GFR (MDRD) Non-Af 90 BUN/Creatinine Ratio 14.6 Glucose 232 H Calcium 9.2 Urine Opiates Screen Urine Methadone Screen Ur Barbiturates Screen Ur Phencyclidine Scrn Ur Amphetamines Screen U Methamphetamin-MDMA U Benzodiazepines Scrn Urine Cocaine Screen U Cannabinoids Screen Ur Drug Screen Comment Ethyl Alcohol 5.0 02/09/21 20:50 WBC RBC Hgb Hct MCV MCH MCHC RDW Std Deviation RDW Coeff of Franco Plt Count MPV Immature Gran % (Auto) Neut % (Auto) Lymph % (Auto) [place] % (Auto) Eos % (Auto) Baso % (Auto) Absolute Neuts (auto) Absolute Lymphs (auto) Nucleated RBC % Sodium Potassium Chloride Carbon Dioxide Anion Gap BUN Creatinine Estim Creat Clear Calc Est GFR (MDRD) Af Amer Est GFR (MDRD) Non-Af BUN/Creatinine Ratio Glucose Calcium Urine Opiates Screen NEGATIVE Urine Methadone Screen NEGATIVE Ur Barbiturates Screen NEGATIVE Ur Phencyclidine Scrn NEGATIVE Ur Amphetamines Screen NEGATIVE U Methamphetamin-MDMA POSITIVE H U Benzodiazepines Scrn NEGATIVE Urine Cocaine Screen NEGATIVE U Cannabinoids Screen NEGATIVE Ur Drug Screen Comment Ethyl Alcohol Discharge Plan Triage Chief Complaint: Mental Health ED Provider: Herberth Robins Dx/Rx/DC Orders Clinical Impression: Depression with suicidal ideation Prescriptions: No Action Baqsimi 3 mg/actuation spray,non-aerosol 3 mg INTRANASAL ONCE Qty: 2 RF: 6 bupropion HCl 150 mg tablet sustained-release 12 hr 300 mg PO BID RF: 0 testosterone cypionate [Depo-Testosterone] 200 mg/mL oil 100 mg IM Q2W Qty: 1 RF: 0 multivitamin 1 EACH tablet 1 ea PO DAILY RF: 0 citalopram 20 MG tablet 20 mg PO DAILY RF: 0 insulin aspart U-100 100 UNIT/ML solution 1 unit CONT INF DAILY RF: 0 cholecalciferol (vitamin D3) 1,000 UNIT capsule 5,000 unit PO DAILY RF: 0 Primary Care Provider: Walt Marinelli Referrals: Walt Marinelli MD [Primary Care Provider] - Disposition Disposition: Acute Care Hospital
--- NOTE | 2021-02-09 20:45 | CM.ED ---
SOCIAL WORK ASSESSMENT Referral Source: Dr. Robins Reason for Consult: Suicidal ideation Chief Compliant: Patient with history of depression, has been drinking to cope. Patient with suicidal ideation and has been researching ways to accomplish suicide. 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 Patient reports about 10 years ago self-admitted to [place] due to depression. Patient states has been on same medication since hospitalization. Follows with PCP- Dr. Loza. Triggers/Stressors: Work, financial, medical issues- patient with type 1 diabetes has insulin pump. Coping Skills: None Substance Abuse History: Alcohol. Patient admits to drinking every night to cope. Risk to Self/Others: Suicidal- Patient admits to suicidal ideation. Family reports patient has been researching ways to end his life, how to obtain a free will, and texting friend last evening that he was going to end his life. found patient intoxicated, passed out with pills in hand. Patient attempted to buy a gun recently, but was denied. Patient states was attempting to buy a gun because I'm a Democrat, I wanted it for protection. Homicidal- Patient denies any homicidal ideation. Mental Status Exam: Orientation- A&OX4 Memory- good Appearance/General Behavior: clean/appropriate, anxious Mood/Affect: flat, depressed Communication Pattern: responds to questions Thought Process: appropriate General Intellectual Functioning: Above Average Judgment: poor Assessment: Received phone call from patient's sisterErin prior to meeting with patient. Sister cindy is a counselor and has many concerns for patient. Sister reports 10 years ago patient admitted self to [facility] due to depression. Sister states over the last year patient has been decompensating. Patient hasn't gone to counseling and believes patient to be compliant with medications. Sister reports patient has stressors from work, financial, and medical issues. Sister states about a year ago patient received gastric bypass surgery has diabetes and is insulin dependant. Sister has been receiving monthly calls from patient's that patient is intoxicated and threatening suicide. Sister reports patient attempted to buy a gun recently and was denied due to his mental health history. Last evening, she received a call from patient's that he was found passed out with pills in hand. Sister reports took screenshots of patient's phone. Patient had been researching ways to end his life and texted a friend, Jayne that he was planning on ending his life. Family believes patient would benefit from hospitalization. Met with patient and in room. Introduced role and reason for referral. Patient open to speaking to this worker with present in room. Patient aware this worker received call from sister. Patient admitted to suicidal ideation. Patient states has been drinking to cope with stressors. Patient reports to not know how to cope. Patient states my best friend, only friend a year ago and I have no one to talk to. Patient reports feelings of helplessness. Patient reports work stress, financial stressors and medical issues. Patient states to not know how to cope with diabetes. Explained to patient that he has been [place] Slipped and discussed hospitalization. Patient worried about work and mother finding out. Emotional support provided. All questions answered. Collaboration with Dr. Robins. Plan for inpatient psych hospitalization. This worker to facilitate placement. Plan: Referral for inpatient psych D. MS YeimyW, DIRECTOR OF SPA AND GUEST EXPERIENCE
--- NOTE | 2021-02-09 20:46 | CM.ED ---
SOCIAL WORK Call to [facility] to check on bed availability. Intake reports beds available. Will fax referral once patient is medically cleared. Pardeep Gaffney, SUGAR PRESSER, THERMOMETER TESTER
[2021-02-09 20:50] VITALS: RESP 16
[2021-02-09 20:56] LABS: Absolute Lymphocyte Count 1.53 X10^3/uL (0.83-4.51); Absolute Neutrophil Count 4.9 X10^3/uL (2.0-7.7); Basophil# 0.05 X10^3/uL; Basophil% 0.7 % (0-1); Eosinophil# 0.07 X10^3/uL; Hematocrit 44.6 % (40-54); Hemoglobin 15.2 g/dL (13.0-16.5); Lymphocyte # 1.53 X10^3/ul (0.83-4.51); Lymphocyte % 21.8 % (19-41); Mean Corp Hgb Conc 34.1 g/dL (32-36); Mean Corpuscular Hgb 29.1 pg (27.0-32.0); Mean Corpuscular Volume 85.4 fL (80-94); Mean Platelet Vol. 9.7 fl (6.2-12.0); Monocyte# 0.51 X10^3/uL; Monocyte% 7.3 % (0-10); NRBC Flagged by Analyzer 0 % (0-5); Neutrophil # 4.85 X10^3/uL (2.7-7.7); Neutrophil % 69.1 % (47-70); Platelet Count 209 K/mm3 (150-450); RBC Distribution Width CV 12.1 % (11.6-14.6); RBC Distribution Width SD 37.8 fl (35.1-43.9); Red Blood Count 5.22 M/mm3 (4.6-6.2)
[2021-02-09 21:00] VITALS: RESP 16
[2021-02-09 21:09] LABS: Anion Gap 4 (5-15); BUN 14 mg/dL (7-18); BUN/Creat Ratio 14.6 RATIO (10-20); Calcium,Total 9.2 mg/dL (8.5-10.1); Chloride 105 mmol/L (98-107); Creatinine, Serum 0.96 mg/dL (0.70-1.30); EST Glomerular Filtration Rate 90 mL/min (>60); Est Glom Filt Rate - Afr Amer 109 mL/min (>60); Estimated Creatinine Clearance 100.33 ml/min; Glucose 232 mg/dL (74-106); Potassium 4.1 mmol/L (3.5-5.1); Sodium Level 138 mmol/L (136-145)
[2021-02-09 21:25] LABS: Amphetamine Urine VISTA NEGATIVE (<1000 ng/mL); Barbiturate Urine VISTA NEGATIVE (< 200 ng/mL); Benzodiazepine Urine VISTA NEGATIVE (< 200 ng/mL); Cocaine Urine VISTA NEGATIVE (< 300 ng/mL); Ecstacy Urine VISTA POSITIVE (< 500 ng/mL); Methadone Urine VISTA NEGATIVE (< 300 ng/mL); PCP Urine VISTA NEGATIVE (< 25 ng/mL); THC Urine VISTA NEGATIVE (< 50 ng/mL); Vista UDS pH Range 6
--- NOTE | 2021-02-09 21:33 | EKG12_ITS ---
Test Reason : Blood Pressure : / mmHG Vent. Rate : 086 BPM Atrial Rate : 086 BPM P-R Int : 150 ms QRS Dur : 100 ms QT Int : 378 ms P-R-T Axes : 085 015 023 degrees QTc Int : 452 ms Normal sinus rhythm Normal ECG Confirmed by USHA HERBERT, DELORES ([id number]), primer expeditor and drier JOHN CABALLERO ([id number]) on 02/11/2021 12:41:27 P M Referred By: ROBERTO Confirmed By:LISBET KERR MD
--- NOTE | 2021-02-09 21:52 | CM.ED ---
SOCIAL WORK Referral faxed to [facility]. Pardeep Gaffney, SUPERVISOR KEYMODULE ASSEMBLY, WORKFORCE PLANNER
--- NOTE | 2021-02-09 22:30 | CM.ED ---
SOCIAL WORK Call to [facility] to check on status of referral. Per Shahnaz, patient accepted by Dr. Kimball. Nurse to call report. [place] to set up transport. Pardeep Gaffney, TRACTOR MECHANIC APPRENTICE, PIPE COVERER AND INSULATOR
[2021-02-09 22:44] VITALS: RESP 16
--- NOTE | 2021-02-09 22:58 | CM.ED ---
SOCIAL WORK Call to [facility] to inquire about needs for patient's insulin pump. Intake reports will need to verify with physician and will get back to this worker.
[2021-02-09 23:14] VITALS: BP 138/91; PULSE 85; RESP 16; TEMP 36.3; O2SAT 99
--- NOTE | 2021-02-09 23:19 | CM.ED ---
Addendum entered by Evelin Gaffney 02/09/21 23:53: Patient has been updated on denial by [facility]. All questions answered. Original Note: SOCIAL WORK Call back from [facility] with [facility], after accepting patient they are now declining due to patient's insulin pump. Squad here for transport. Squad cancelled at this time. [facility] apologizing to this worker. It should be noted, information about insulin pump was given at time of referral. This worker to refer to another facility at this time. Pardeep Gaffney, JET SKI MECHANIC, DUMP TRUCK DRIVER OFF HIG[address]
--- NOTE | 2021-02-09 23:30 | CM.ED ---
SOCIAL WORK Referral faxed and called to [facility] and [facility]. Informed both of patient's insulin pump. Pending review at both facilities at this time. Staff ekn. Pardeep Gaffney MSW, CREDIT PORTFOLIO ADVISOR
[2021-02-10 00:56] VITALS: BP 138/91; PULSE 85; RESP 16; TEMP 36.3; O2SAT 99
== END 2021-02-10 01:37 ==
PROVIDERS: Emergency Provider Emergency Medicine; PCP Family Medicine
DX: F32.9 Major depressive disorder, single episode, unspecified (principal); F41.9 Anxiety disorder, unspecified; R45.851 Suicidal ideations; E11.9 Type 2 diabetes mellitus without complications; Z79.4 Long term (current) use of insulin
CPT/HCPCS: 36415; 80048; 80307; 82077; 85025; 87426; 93005; 99285

== ENCOUNTER → 2021-05-04 09:39 | Outpatient (CLI) | payer OTHER, SELFPAY ==
[2021-05-04 10:45] LABS: Anion Gap 4 (5-15); BUN 14 mg/dL (7-18); BUN/Creat Ratio 14.2 RATIO (10-20); Calcium,Total 8.5 mg/dL (8.5-10.1); Chloride 106 mmol/L (98-107); Cholesterol 158 mg/dL (200); Creatinine, Serum 0.98 mg/dL (0.70-1.30); EST Glomerular Filtration Rate 87 mL/min (>60); Est Glom Filt Rate - Afr Amer 106 mL/min (>60); Glucose 223 mg/dL (74-106); High Density Lipoprotein 43 mg/dL; Potassium 4.3 mmol/L (3.5-5.1); Sodium Level 140 mmol/L (136-145); Triglycerides 111 mg/dL; Very Low Density Lipoprotein 22 mg/dL (5-40)
== END ==
PROVIDERS: PCP Family Medicine; Referring Provider Family Medicine; Visit Provider Family Medicine
DX: E11.9 Type 2 diabetes mellitus without complications (principal)
CPT/HCPCS: 36415; 80048; 80061

== ENCOUNTER 2021-07-11 17:30 | Outpatient (RCR) | payer OTHER, SELFPAY ==
--- NOTE | 2020-10-14 07:42 | MASS.EVAL_ITS ---
Massage Therapy Evaluation: INITIAL EVALUATION DATE: 09/27/2020 PT NAME: PAULINA ACOSTA : 1975 V#:[id number] REF PHYS: DR. 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 HE WAS REFERRED TO [facility] FOR A MASSOTHERAPY EVALUATION BY DR. TEJEDA WITH A DIAGNOSIS OF NECK/BACK PAIN. HE PRESENTS TODAY WITH SYMPTOMS OF HAVING A HEADACHE FOR A WEEK STRAIGHT AND A LOT OF TENSION IN THE NECK AND SHOULDERS. 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 PAULINA RATES HIS OVERALL HEALTH TO BE IN GOOD CONDITION WITH SOME LIMITATIONS DURING DAILY LIVING ACTIVITIES. PAULINA DID NOT LIST ANY CURRENT MEDICATIONS BUT DID SAY HE IS A TYPE I DIABETIC. OBJECTIVE: THE FIRST TREATMENT CONSISTED OF A ONE HOUR DEEP TISSUE UPPER BODY MASSAGE. I FOCUSED TEMPORALIS, SUBOCCIPITALS, LEVATOR, LATERAL SCALENES, UPPER TRAPEZIUM, RHOMBOIDS, AND GLUTEUS. NECK STRETCHES AND TRIGGER POINT THERAPY WERE PERFORMED. ASSESSMENT: OVERALL OBSERVATION, THE RIGHT SIDE WAS TIGHTER AND LESS MYOFASCIAL MOVEMENT ON THE RIGHT SIDE VS. THE LEFT. THE POINT OF TENDERNESS WAS THE RIGHT LATERAL SCALENE, UPPER TRAPEZIUM, AND RIGHT GLUTEUS. PAULINA SEEMED TO RELAX DURING THE MASSAGE AND THE STRESS LEVEL DECREASED IN THE CERVICAL AREA; WELL DECREASE IN HEADACHE POST THE MASSAGE. I FEEL THAT PAULINA IS A GREAT CANDIDATE FOR MASSOTHERAPY AT THIS TIME. PLAN: THE PLAN OF CARE WAS REVIEWED WITH THE PATIENT. THE PATIENT IS TO BE SEEN ON A MONTHLY BASIS, OR NEEDED FOR ONE HOUR SESSIONS OF MASSOTHERAPY.
== END 2021-07-11 19:00 | disposition home or self-care (01) ==
LOC: MASS 17:30
PROVIDERS: PCP Family Medicine; Referring Provider Family Medicine; Visit Provider Family Medicine
DX: F32.9 Major depressive disorder, single episode, unspecified (principal)
CPT/HCPCS: 97124

== ENCOUNTER → 2021-08-26 16:53 | Outpatient (CLI) | payer OTHER, SELFPAY ==
[2021-08-26 17:53] LABS: Hemoglobin A1c 7.3 % (3.8-5.6)
== END ==
PROVIDERS: PCP Family Medicine; Referring Provider Family Medicine; Visit Provider Family Medicine
DX: E11.9 Type 2 diabetes mellitus without complications (principal); E29.1 Testicular hypofunction
CPT/HCPCS: 36415; 83036; 84403

== ENCOUNTER → 2022-02-21 | Outpatient (CLI) | payer OTHER, SELFPAY ==
[2022-02-21 12:53] LABS: Anion Gap 6 (5-15); BUN 16 mg/dL (7-18); BUN/Creat Ratio 15.5 RATIO (10-20); Calcium,Total 8.7 mg/dL (8.5-10.1); Chloride 106 mmol/L (98-107); Cholesterol 200 mg/dL (200); Creatinine, Serum 1.03 mg/dL (0.70-1.30); EST Glomerular Filtration Rate 82 mL/min (>60); Est Glom Filt Rate - Afr Amer 100 mL/min (>60); Glucose 171 mg/dL (74-106); High Density Lipoprotein 57 mg/dL; Potassium 3.8 mmol/L (3.5-5.1); Sodium Level 139 mmol/L (136-145); Triglycerides 74 mg/dL; Very Low Density Lipoprotein 15 mg/dL (5-40)
== END | disposition home or self-care (01) ==
LOC: MFPLAB 10:03
PROVIDERS: PCP Family Medicine; Visit Provider Family Medicine
DX: E29.1 Testicular hypofunction (principal); E11.9 Type 2 diabetes mellitus without complications
CPT/HCPCS: 36415; 80048; 80061; 84403

== ENCOUNTER 2022-03-18 12:18 | Emergency (ER) | payer OTHER, SELFPAY ==
[2022-03-18 12:19] VITALS: BP 158/86; PULSE 81; RESP 16; TEMP 37.1; O2SAT 98; BMI 31.8
--- NOTE | 2022-03-18 12:33 | CT_ITS ---
STUDY: CT ABDOMEN AND PELVIS WITHOUT CONTRAST REASON FOR EXAM: Male, 46 years old. Kidney Stone RADIATION DOSAGE (If Supplied By Facility): CTDIvol = ( 13.96 ) mGy, DLP = ( 743.04 ) mGycm TECHNIQUE: Transaxial images were obtained from the dome of the diaphragm to the symphysis pubis without oral contrast, and without intravenous contrast. Sagittal and coronal images were reconstructed. Individualized dose optimization techniques were used for this CT. COMPARISON: 03/08/2018. FINDINGS: The visualized lung bases are unremarkable. The visualized portions of the heart are within normal limits. Normal liver. Normal gallbladder and extrahepatic biliary system. Normal spleen. Normal pancreas. Normal bilateral adrenal glands. Mild right hydronephrosis and hydroureter due to 6 mm stone in the distal third of the right ureter. Right perinephric stranding. 4 mm nonobstructing stone in the midpole of the left kidney without evidence of hydronephrosis. Surgical clips in the region of the stomach likely due to previous gastric bypass. Normal in caliber small bowel loops. No evidence of acute diverticulitis. The appendix is visualized and appears normal. Normal abdominal aorta. Normal inferior vena cava. Normal retroperitoneum. Normal urinary bladder. Prominent prostate. Correlation with PSA level is recommended. Small prostatic calcification. Normal abdominal wall. Degenerative changes in the spine particularly at the level of L5-S1. CT/Abdomen/Pelvis without Cont IMPRESSION: 1. Mild right hydronephrosis due to 6 mm stone in the distal right ureter. 2. Nonobstructing stone in the left kidney measuring about 4 mm. 3. Slightly prominent prostate. Electronically Signed: Armen Gtz MD at 13:51 EDT ,
--- NOTE | 2022-03-18 12:34 | EX.ED.DYSGE1 ---
HPI History of Present Illness Chief Complaint: Flank Pain Informant: patient Onset/Context/Timing Current Severity: Mild Maximum Severity: Severe Narrative Narrative: Patient presents secondary to right flank pain. He states has been having right testicular pain for the last 3 weeks but did not think much of it. Last evening he developed pain around the right flank. He has had 1 prior kidney stone that he was able to pass on his own and the pain feels similar. [facility] Medical History Anxiety Arthralgia Depression Diabetes Dyslipidemia Myalgia Severe headache Home Medications cholecalciferol (vitamin D3) 25 mcg (1,000 unit) capsule 5,000 unit PO DAILY 03/08/18 [History Last Taken Unknown] citalopram 20 mg tablet 40 mg PO DAILY 03/08/18 [History Last Taken Unknown] insulin aspart U-100 100 unit/mL subcutaneous solution 1.55 unit CONT INF CONT 03/08/18 [History Last Taken 03/22/18] multivitamin 1 ea PO DAILY 03/08/18 [History Last Taken Unknown] bupropion HCl 150 mg tablet,12 hr sustained-release 300 mg PO DAILY 01/16/20 [History Last Taken Unknown] glucagon 3 mg/actuation nasal spray (Baqsimi) 3 mg intranasal ONCE #2 ea 01/16/20 [Rx Last Taken Unknown] testosterone cypionate 200 mg/mL intramuscular oil (Depo-Testosterone) 100 mg (0.5 mL) IM Q2W #1 mL 01/16/20 [Rx Last Taken Unknown] insulin lispro 100 unit/mL subcutaneous cartridge (Humalog U-100 Insulin) 4 unit subcut TID 02/09/21 [History Last Taken Unknown] hydrocodone-acetaminophen 5-325mg 5mg-325mg 1 tab PO Q6H PRN pain 3 days #10 tabs 03/18/22 [Rx Last Taken Unknown] ondansetron 4 mg disintegrating tablet 4 mg PO Q8H PRN nausea and vomiting #10 tabs 03/18/22 [Rx Last Taken Unknown] tamsulosin 0.4 mg capsule (Flomax) 0.4 mg PO DAILY #7 caps 03/18/22 [Rx Last Taken Unknown] Allergy/AdvReac Type Severity Reaction Status Date / Time No Known Allergies Allergy Verified 06/25/22 12:20 Surgical History History of Mikael-en-Y gastric bypass Social History Smoking Status: Never smoker alcohol intake: current alcohol intake frequency: a few times a month Alcohol type: beer ROS ROS ED Constitutional Constitutional ED: Denies chills or fever(s) Eyes Eyes: Denies change in vision or discharge from eye(s) ENT ENT ED: Denies discharge from eye(s), rhinorrhea or sore throat Cardiovascular Cardiovascular: Denies chest pain or palpitations Respiratory/Chest Respiratory/Chest: Denies cough or dyspnea Gastrointestinal Gastrointestinal: Reports abdominal pain; Denies diarrhea, nausea or vomiting Genitourinary Genitourinary ED: Denies difficulty urinating or dysuria Musculoskeletal Musculoskeletal: Denies back pain or extremity pain Integumentary Denies Abrasions or rash Neurologic Neurologic: Denies headache(s) or weakness Allergic/Immunologic Allergic/Immunologic ED: Denies lip swelling or urticaria EXAM Physical Exam Const Vital Signs: 03/18/22 12:19 Temperature 98.8 F Temperature Source Temporal Pulse Rate 81 Respiratory Rate 16 Blood Pressure 158/86 H Blood Pressure Mean 110 Pulse Ox 98 Oxygen Delivery Method Room Air Positive well nourished and well developed General Appearance ED: well developed HEENT Reports moist mucous membranes Eyes PERRL and EOMs intact bilaterally Neck no lymphadenopathy Chest Wall inspection of chest normal and palpation of chest normal Resp normal respiratory effort and clear to auscultation bilaterally Cardio regular rate and regular rhythm GI normal to inspection, nondistended, normoactive bowel sounds and non-tender Extremity normal to inspection Neuro oriented x3, CN's II-XII intact bilaterally and no sensory deficits noted Motor Exam: strength 5/5 throughout Psych mental status grossly normal Skin no rashes or lesions noted MDM MDM MDM Narrative Medical decision making narrative: Lab work and urinalysis obtained. Patient given IV fluids. Pain meds ordered if patient needed, but has not required them while in the emergency room. CT flank obtained. Lab Data Attestation: I reviewed the patient's lab results. Labs: Laboratory Results - last 24 hr 03/18/22 03/18/22 03/18/22 12:35 12:45 12:45 WBC 7.9 RBC 5.05 Hgb 15.1 Hct 43.8 MCV 86.7 MCH 29.9 MCHC 34.5 RDW Std Deviation 40.1 RDW Coeff of Franco 12.8 Plt Count 251 MPV 9.3 Immature Gran % (Auto) 0.300 Neut % (Auto) 72.5 H Lymph % (Auto) 16.1 L [place] % (Auto) 9.5 Eos % (Auto) 0.8 Baso % (Auto) 0.8 Absolute Neuts (auto) 5.7 Absolute Lymphs (auto) 1.27 Nucleated RBC % 0 Sodium 137 Potassium 4.3 Chloride 104 Carbon Dioxide 29.0 Anion Gap 4 L BUN 15 Creatinine 1.08 Estim Creat Clear Calc 85.47 Est GFR (MDRD) Af Amer 94 Est GFR (MDRD) Non-Af 78 BUN/Creatinine Ratio 13.9 Glucose 243 H Calcium 8.9 Urine Color Yellow Urine Clarity Clear Urine pH 6.0 Ur Specific [place] 1.015 Urine Protein 15 H Urine Glucose (UA) 1000 H Urine Ketones Negative Urine Occult Blood 250 H Urine Nitrite Negative Urine Bilirubin Negative Urine Urobilinogen Normal Ur Leukocyte Esterase 25 H Urine RBC 25-50 SEEN Urine WBC 0 SEEN Ur Squamous Epith Cells 0 SEEN Urine Bacteria 0 SEEN Urine Mucus 0 SEEN Radiography Diagnostic Testing: Clinical Impression(s) from Imaging Studies Abdomen/Pelvis CT 03/18/22 12:33 IMPRESSION: 1. Mild right hydronephrosis due to 6 mm stone in the distal right ureter. 2. Nonobstructing stone in the left kidney measuring about 4 mm. 3. Slightly prominent prostate. Electronically Signed: Armen Gtz MD at 13:51 EDT , Treatment and Re-Evaluation Narrative: On repeat evaluation patient is resting comfortably. Lab work and urinalysis unremarkable other than hematuria. CT flank reveals a 6 mm stone in the distal right ureter. Patient will continue to push IV fluids. He will be written for Flomax, [place], and Zofran at home. Return instructions provided. Discharge Plan Triage Chief Complaint: Flank Pain ED Provider: Maryam Blakely Dx/Rx/DC Orders Clinical Impression: Ureterolithiasis Instructions: ED Kidney Stone w/ Colic Prescriptions: New hydrocodone-acetaminophen 5-325 mg tablet 1 tab PO Q6H PRN (Reason: pain) 3 Days Qty: 10 0RF tamsulosin [Flomax] 0.4 mg capsule 0.4 mg PO DAILY Qty: 7 0RF ondansetron 4 mg tablet,disintegrating 4 mg PO Q8H PRN (Reason: nausea and vomiting) Qty: 10 0RF No Action Baqsimi 3 mg/actuation spray,non-aerosol 3 mg INTRANASAL ONCE Qty: 2 6RF Rx Instructions: as a single dose bupropion HCl 150 mg tablet sustained-release 12 hr 300 mg PO DAILY testosterone cypionate [Depo-Testosterone] 200 mg/mL oil 100 mg IM Q2W Qty: 1 0RF multivitamin 1 EACH tablet 1 ea PO DAILY citalopram 20 MG tablet 40 mg PO DAILY insulin aspart U-100 100 UNIT/ML solution 1.55 unit CONT INF CONT Rx Instructions: insulin pump cholecalciferol (vitamin D3) 1,000 UNIT capsule 5,000 unit PO DAILY Humalog U-100 Insulin 100 unit/mL Cartridge 4 unit SUBCUT TID Primary Care Provider: Walt Marinelli Referrals: Fabio Pruitt MD [STAFF PHYSICIAN] - As Needed Walt Marinelli MD [Primary Care Provider] - Disposition Disposition: Home, Self Care
[2022-03-18 12:45] LABS: Bacteria 0 SEEN /hpf (None Seen); Mucous, Urine 0 SEEN /hpf (<or=2+); Squamous Epithelial Cells - UA 0 SEEN /hpf (0-5); White Blood Cells 0 SEEN /hpf (0-5)
[2022-03-18 12:48] LABS: Color, Urine Yellow (Yellow); Glucose, Dipstick 1000 mg/dl (Normal); Ketone-Dipstick Negative (Negative); Leukocyte Esterase-Dipstick 25 /ul (Negative); Nitrite-Dipstick Negative (Negative); Occult Blood-Urine 250 /ul (Negative); Protein-Dipstick 15 mg/dl (Negative); Specific Gravity, Urine 1.015 (1.002-1.030); Urine Bilirubin Dipstick Negative (Negative); Urine Clarity Clear (Clear); Urine Urobilinogen Normal (Normal)
[2022-03-18 12:51] LABS: Absolute Lymphocyte Count 1.27 X10^3/uL (0.83-4.51); Absolute Neutrophil Count 5.7 X10^3/uL (2.0-7.7); Basophil# 0.06 X10^3/uL; Basophil% 0.8 % (0-1); Eosinophil# 0.06 X10^3/uL; Eosinophils% 0.8 % (0-5); Hematocrit 43.8 % (40-54); Hemoglobin 15.1 g/dL (13.0-16.5); Lymphocyte # 1.27 X10^3/ul (0.83-4.51); Lymphocyte % 16.1 % (19-41); Mean Corp Hgb Conc 34.5 g/dL (32-36); Mean Corpuscular Hgb 29.9 pg (27.0-32.0); Mean Corpuscular Volume 86.7 fL (80-94); Mean Platelet Vol. 9.3 fl (6.2-12.0); Monocyte# 0.75 X10^3/uL; Monocyte% 9.5 % (0-10); NRBC Flagged by Analyzer 0 % (0-5); Neutrophil # 5.74 X10^3/uL (2.7-7.7); Neutrophil % 72.5 % (47-70); Platelet Count 251 K/mm3 (150-450); RBC Distribution Width CV 12.8 % (11.6-14.6); RBC Distribution Width SD 40.1 fl (35.1-43.9); Red Blood Count 5.05 M/mm3 (4.6-6.2); White Blood Count 7.9 K/mm3 (4.4-11.0)
[2022-03-18] MEDS: 0.9% Normal Saline 1,000 ML 250 ML IV (12:52)
[2022-03-18 12:54] LABS: Red Blood Cells-Urine 25-50 SEEN /hpf (0-5)
[2022-03-18 13:06] LABS: Anion Gap 4 (5-15); BUN 15 mg/dL (7-18); BUN/Creat Ratio 13.9 RATIO (10-20); Calcium,Total 8.9 mg/dL (8.5-10.1); Chloride 104 mmol/L (98-107); Creatinine, Serum 1.08 mg/dL (0.70-1.30); EST Glomerular Filtration Rate 78 mL/min (>60); Est Glom Filt Rate - Afr Amer 94 mL/min (>60); Estimated Creatinine Clearance 85.47 ml/min; Glucose 243 mg/dL (74-106); Potassium 4.3 mmol/L (3.5-5.1); Sodium Level 137 mmol/L (136-145)
[2022-03-18] MEDS: Ketorolac 30 MG/ML Syringe IV (13:28)
[2022-03-18] MEDS: Morphine 4 MG/ML Syringe IV (13:29)
[2022-03-18] MEDS: Ondansetron 4 MG/2 ML Vial IV (13:29)
[2022-03-18 16:08] VITALS: BP 129/77; PULSE 64; RESP 15; TEMP 36.8; O2SAT 98
== END 2022-03-18 16:09 | disposition home or self-care (01) ==
PROVIDERS: Emergency Provider Emergency Medicine; PCP Family Medicine; Visit Provider Emergency Medicine
DX: N13.2 Hydronephrosis with renal and ureteral calculous obstruction (principal); E11.9 Type 2 diabetes mellitus without complications; Z79.4 Long term (current) use of insulin; E78.5 Hyperlipidemia, unspecified; F32.A Depression, unspecified; F41.9 Anxiety disorder, unspecified; Z79.899 Other long term (current) drug therapy; Z87.442 Personal history of urinary calculi
CPT/HCPCS: 74176; 80048; 81001; 85025; 96361; 96374; 96375; 99283; J7030; A4216; J2405

== ENCOUNTER → 2022-03-28 | Outpatient (CLI) | payer OTHER, SELFPAY ==
--- NOTE | 2022-03-28 15:45 | RAD_ITS ---
EXAM: XR CERVICAL SPINE, 4 OR 5 VIEWS CLINICAL INDICATION: NECK PAIN TECHNIQUE: Frontal, lateral and bilateral oblique views of the cervical spine. This report was created using Meraki report Hipui technology. COMPARISON: 10.29.13 FINDINGS: VERTEBRAE: There is mild reversal of the normal cervical lordosis. This can suggest neck strain. The odontoid process is obscured by the overlying hard palate on the open mouth view. Therefore, it is not fully evaluated by plain film. There is endplate spondylosis of the vertebral body. Preserved vertebral body height. No acute fracture. No significant facet arthropathy. DISC SPACES: Loss of intervertebral disc height. SOFT TISSUES: See above. LUNG APICES: Clear. RAD/Cerv Spine 4 or 5 Views IMPRESSION: 1. There is mild reversal of the normal cervical lordosis. This can suggest neck strain. 2. The odontoid process is obscured by the overlying hard palate on the open mouth view. Therefore, it is not fully evaluated by plain film. 3. Degenerative findings of the cervical spine of the bowel since the prior study. Electronically Signed: Jake Lawrence MD at 19:49 EDT ,
== END | disposition home or self-care (01) ==
LOC: MTRAD 15:31
PROVIDERS: PCP Family Medicine; Referring Provider Nurse Practitioner Family; Visit Provider Nurse Practitioner Family
DX: M47.812 Spondylosis without myelopathy or radiculopathy, cervical region (principal)
CPT/HCPCS: 72050

== ENCOUNTER → 2022-04-18 | Outpatient (CLI) | payer OTHER, SELFPAY ==
--- NOTE | 2022-04-18 16:30 | MRI_ITS ---
STUDY: MRI CERVICAL SPINE WITHOUT CONTRAST REASON FOR EXAM: Male, 46 years old. RADICULOPATHY,PAIN TECHNIQUE: Standardized fat and water weighted pulse sequences were obtained in the sagittal and axial planes. COMPARISON: None FINDINGS: Normal foramen magnum and brainstem-cervical cord junction. Normal craniovertebral junction. Normal anterior atlantoaxial articulation. Normal odontoid process. There is reversal of the normal cervical lordosis. 1 mm C5-6 and 1 mm C6-7 retrolisthesis. Normal vertebral bodies and posterior osseous elements. C2-3: Normal endplates. Normal disc height, signal and morphology. Normal central canal and intervertebral neural foramina. C3-4: Normal endplates. Disc bulge without significant spinal canal stenosis. Normal intervertebral neural foramina. C4-5: Normal endplates. Mild disc bulge without significant spinal canal stenosis. There is probably mild left neural foraminal stenosis, though this is complicated by motion.. C5-6: Normal endplates. Disc bulge with mild cord compression. There is probably mild right foraminal stenosis, though this is complicated by motion. C6-7: Normal endplates. Disc bulge, posterior fissure, and protrusion with mild cord compression. There is probably mild bilateral neural foraminal stenosis, though this is complicated by motion. C7-T1: Normal endplates. Normal disc height, signal and morphology. Normal central canal and intervertebral neural foramina. There is mild cord signal abnormality of the levels of C5 on C6. There is no demonstrated cervical cord syrinx cavity. Normal visualized soft tissue structures. MRI/Spine Cervical (Routine) IMPRESSION: Mild cord compression and signal abnormality at C5-6 and C6-7. No finding of syrinx. Suspect lower cervical spine foraminal stenosis, though this is difficult to assess due to motion. Electronically Signed: Walt Browne MD at 7:32 EDT ,
== END | disposition home or self-care (01) ==
LOC: MRI 16:13
PROVIDERS: PCP Family Medicine; Visit Provider Family Medicine
DX: M54.2 Cervicalgia (principal); M54.12 Radiculopathy, cervical region
CPT/HCPCS: 72141

== ENCOUNTER → 2022-06-15 | Outpatient (CLI) | payer OTHER, SELFPAY ==
--- NOTE | 2022-06-15 17:49 | MRI_ITS ---
STUDY: MRI CERVICAL SPINE WITHOUT CONTRAST REASON FOR EXAM: Male, 46 years old. pain into L arm /fingers TECHNIQUE: Standardized fat and water weighted pulse sequences were obtained in the sagittal and axial planes. COMPARISON: 04/18/2022 FINDINGS: Normal foramen magnum and brainstem-cervical cord junction. Normal craniovertebral junction. Normal anterior atlantoaxial articulation. Normal odontoid process. Normal cervical lordosis. Normal vertebral bodies and posterior osseous elements. C2-3: Normal endplates. Normal disc height, signal and morphology. Normal central canal and intervertebral neural foramina. C3-4: Normal endplates. Narrowed disc space and minor bulging disc osteophyte complex.. Normal central canal. Severe left neuroforaminal stenosis and mild right neuroforaminal encroachment secondary to disc and bony hypertrophy C4-5: Normal endplates. Normal disc height, signal and small right paracentral disc protrusion and moderate sized broad-based left posterolateral/foraminal disc protrusion. Mild narrowing of the central canal. Severe left neuroforaminal stenosis secondary to disc and bony hypertrophy C5-6: Narrowed disc space and minor bulging disc osteophyte complex and association with small left paracentral disc protrusion narrowing the spinal canal mildly compressing the cord. Severe bilateral neuroforaminal stenosis secondary to disc and bony hypertrophy. C6-7: Normal endplates. Normal disc height, signal and minor bulging of the disc and association with broad-based large left posterolateral/foraminal disc protrusion narrowing the spinal canal and compressing the cord association with severe left neuroforaminal stenosis.. Mild right neuroforaminal encroachment.. C7-T1: Normal endplates. Normal disc height, signal and morphology. Normal central canal and intervertebral neural foramina. Normal cervical cord. Normal visualized soft tissue structures. Findings are similar to that seen on prior exam MRI/Spine Cervical (Routine) IMPRESSION: No evidence for acute fracture or other significant bony pathology.. Multilevel spinal stenosis and cord compression at C5-6 and C6-7 secondary to disc disease and bony hypertrophy. Findings as above Electronically Signed: Miguel Rousseau MD at 19:34 EDT ,
== END | disposition home or self-care (01) ==
LOC: MRI 17:49
PROVIDERS: PCP Family Medicine; Visit Provider Orthopaedic Surgery
DX: M50.222 Other cervical disc displacement at C5-C6 level (principal); M48.02 Spinal stenosis, cervical region
CPT/HCPCS: 72141

== ENCOUNTER → 2022-06-21 | Outpatient (CLI) | payer OTHER, SELFPAY ==
[2022-06-21 15:45] LABS: Hemoglobin A1c 7.7 % (3.8-5.6)
[2022-06-23 09:07] LABS: Fructosamine 343 umol/L (0-285)
== END | disposition home or self-care (01) ==
LOC: MTLAB 14:03
PROVIDERS: PCP Family Medicine; Referring Provider Orthopaedic Surgery; Visit Provider Orthopaedic Surgery
DX: E10.9 Type 1 diabetes mellitus without complications (principal)
CPT/HCPCS: 36415; 82985; 83036

== ENCOUNTER → 2022-07-13 | Outpatient (CLI) | payer OTHER, SELFPAY ==
[2022-07-13 15:47] LABS: Hemoglobin A1c 7.2 % (3.8-5.6)
[2022-07-16 09:48] LABS: Fructosamine 349 umol/L (0-285)
== END | disposition home or self-care (01) ==
LOC: MTLAB 12:40
PROVIDERS: PCP Family Medicine; Referring Provider Orthopaedic Surgery; Visit Provider Orthopaedic Surgery
DX: E10.65 Type 1 diabetes mellitus with hyperglycemia (principal)
CPT/HCPCS: 36415; 82985; 83036

== ENCOUNTER → 2022-08-08 | Outpatient (CLI) | payer OTHER, SELFPAY | END | disposition home or self-care (01) | LOC: MTLAB 10:38 | PROVIDERS: PCP Family Medicine; Referring Provider Orthopaedic Surgery; Visit Provider Orthopaedic Surgery | DX: Z01.818 Encounter for other preprocedural examination (principal) | CPT/HCPCS: 36415; 80048; 83735; 85025; 86703; 86706; 86708; 86803; 87077; 87081 ==

== ENCOUNTER 2022-08-22 11:22 | Observation (INO) | payer OTHER, SELFPAY ==
--- NOTE | 2022-08-04 15:50 | EKG12_ITS ---
Test Reason : PRE-OP Blood Pressure : / mmHG Vent. Rate : 064 BPM Atrial Rate : 064 BPM P-R Int : 124 ms QRS Dur : 096 ms QT Int : 394 ms P-R-T Axes : 066 002 006 degrees QTc Int : 406 ms Normal sinus rhythm Voltage criteria for left ventricular hypertrophy Abnormal ECG Confirmed by GARY HERBERT, RUBI ([id number]), industrial editor JOHN CABALLERO ([id number]) on 08/08/2022 11:28:15 AM Referred By: Manjeet Dahl Confirmed By:RUBI VEGA MD
[2022-08-08 12:15] LABS: Absolute Lymphocyte Count 2.02 X10^3/uL (0.83-4.51); Absolute Neutrophil Count 5.5 X10^3/uL (2.0-7.7); Basophil# 0.06 X10^3/uL; Basophil% 0.7 % (0-1); Eosinophil# 0.15 X10^3/uL; Eosinophils% 1.8 % (0-5); Hematocrit 46.4 % (40-54); Hemoglobin 15.6 g/dL (13.0-16.5); Lymphocyte # 2.02 X10^3/ul (0.83-4.51); Mean Corp Hgb Conc 33.6 g/dL (32-36); Mean Corpuscular Hgb 29.7 pg (27.0-32.0); Mean Corpuscular Volume 88.2 fL (80-94); Mean Platelet Vol. 9.9 fl (6.2-12.0); Monocyte% 8.3 % (0-10); NRBC Flagged by Analyzer 0 % (0-5); Neutrophil # 5.48 X10^3/uL (2.7-7.7); Platelet Count 273 K/mm3 (150-450); RBC Distribution Width CV 12.9 % (11.6-14.6); RBC Distribution Width SD 41.2 fl (35.1-43.9); Red Blood Count 5.26 M/mm3 (4.6-6.2); White Blood Count 8.4 K/mm3 (4.4-11.0)
[2022-08-08 12:20] LABS: Anion Gap 5 (5-15); BUN 25 mg/dL (7-18); BUN/Creat Ratio 25.9 RATIO (10-20); Calcium,Total 9.3 mg/dL (8.5-10.1); Chloride 104 mmol/L (98-107); Creatinine, Serum 0.97 mg/dL (0.70-1.30); EST Glomerular Filtration Rate 89 mL/min (>60); Est Glom Filt Rate - Afr Amer 107 mL/min (>60); Glucose 181 mg/dL (74-106); Magnesium 1.9 mg/dL (1.6-2.6); Potassium 4.2 mmol/L (3.5-5.1); Sodium Level 140 mmol/L (136-145)
[2022-08-08 13:16] LABS: HIV - WCH Non-Reactive (Nonreactive); Hepatitis B Surface Antibody Non-Reactive; Hepatitis C Antibody Non-Reactive (Nonreactive)
[2022-08-09 17:03] LABS: Hepatitis A AB, Total Negative (Negative)
--- NOTE | 2022-08-15 13:20 | HP.PCM_ITS ---
History and Physical Acct: [id number] Name:? PAULINA ACOSTA Rep #: [id number] : 1975 ? ? Provider: Dr. Manjeet Dahl DO Age/Sex:? 46/M ? ? Location[place] [facility] [place] Status: Signed Intake Vital Signs ? 06/07/2208:34 Height 5 ft 9 in Weight: 222 lb 4 oz BMI 32.8 Intake Visit Reasons:?COMPRESSION C5-C6 Chief Complaint: Diabetes Allergies No Known Allergies Allergy (Verified 06/07/22 08:44) Medications cholecalciferol (vitamin D3) 25 mcg (1,000 unit) capsule 5,000 unit PO DAILY 03/08/18 [History Confirmed 06/07/22] citalopram 20 mg tablet 40 mg PO DAILY 03/08/18 [History Confirmed 06/07/22] insulin aspart U-100 100 unit/mL subcutaneous solution 1.55 unit continuous IV infusion CONT 03/08/18 [History Confirmed 06/07/22] multivitamin 1 ea PO DAILY 03/08/18 [History Confirmed 06/07/22] bupropion HCl 150 mg tablet,12 hr sustained-release 300 mg PO DAILY 01/16/20 [History Confirmed 06/07/22] glucagon 3 mg/actuation nasal spray (Baqsimi) 3 mg intranasal ONCE #2 ea 01/16/20 [Rx Confirmed 02/09/21] testosterone cypionate 200 mg/mL intramuscular oil (Depo-Testosterone) 100 mg (0.5 mL) IM Q2W #1 mL 01/16/20 [Rx Confirmed 06/07/22] insulin lispro 100 unit/mL subcutaneous cartridge (Humalog U-100 Insulin) 4 unit subcut TID 02/09/21 [History Confirmed 06/07/22] buspirone 7.5 mg tablet 7.5 mg PO BID 05/09/22 [History Confirmed 06/07/22] vitamin B complex (B Complex-Vitamin B12 tablet) 1 tab PO DAILY 06/07/22 [History Confirmed 06/07/22] PFSH Medical History?(Updated 06/07/22 @ 09:[address] Manjeet Dahl, DO) Anxiety Arthralgia Depression Diabetes Dyslipidemia Encounter for screening for COVID-19 Myalgia Severe headache Surgical History? History of Mikael-en-Y gastric bypass Family History?(Updated 06/07/22 @ 08:49 by Isabella Connor) Mother HypertensionFather Diabetes Social History? Smoking Status:? Never smoker alcohol intake:? current alcohol intake frequency: a few times a month Alcohol type: beer HPI COMPRESSION C5-C6 Details: Parts of this documentation were recorded by a scribe, this documentation accurately reflects the service provided and the decisions made by me, Dr. Manjeet Dahl, DO PAULINA ACOSTA is a 46 year old M here today for a herniated disc C5-C6. States that he did have an MRI 2 months ago. Sharp? and dull pain on his Medial right scapula. States that he also had some numbness in his pinky finger and ring finger on his left hand and on the top of his left? forearm. States that there wasn't an injury. States that her just turned wrong. States that most night he wakes up from severe numbness in both hands but it takes his left hand more time to come out of it. States that he an fully extend his neck but it causes more pain. States that he has used ice before and that wasn't very helpful. 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 State that his left side is weaker and that his clerical order filler strength is weaker. States that sudarshan one in awhile he takes gabapentin, Tylenol, and Aleve. States that he has tried to take muscle relaxers which didn't help. States that he also took some prednisone which helped some. States that his main concern is his numbness and the pain in his scapula.? Paulina is a most pleasant gentleman 46 years old who presents today in the company of his Jen.? 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 This problem that he has began about 3 months ago when he turned his head sharply to the left and he began feeling the pain then.? At first the pain was terrific however it has let up and is now unknown even keel so to speak.? He denies any bowel or bladder dysfunction.? He denies history of unexplained weight loss night fever sweats or chills.? He complains of numbness in the C6 distribution on the left.? Oddly enough he does not complain of any pain going down the triceps part of the left arm.? He is right-hand dominant. On examination he has positive Spurling's to the left side.? He has pain with extension of his cervical spine but none with flexion to speak of.? His left triceps reflexes absent his right 1 is 1+.? I can easily overcome his left triceps but have trouble overcoming his right triceps.? He has good C6 strength that is extensors of the wrist on both sides.? Some biceps weakness on the left as compared to the right and some atrophy of the biceps as compared to the right.? He has 1+ biceps reflex on the left and 2+ on the right.? He has a decreased brachioradialis reflex on the left and a 2+ on the right.? He has some cord signs.? His patellar reflexes are 4+ and sharp.? He has a 2 or 3 beat clonus on the right perhaps even more than the left.? Babinski's are downgoing. I reviewed plain x-rays of his cervical spine that were done 2 or 3 months ago.? He has a complete loss of lordosis mostly centered perhaps a C6 and may be even C7.? I reviewed his MRI scan that was of poor quality because of movement.? The patient stated that he simply could not be still because his left arm hurt him so much at the time that the MRI was done.? In spite of the poor quality and motion artifact it is obvious that he has a ruptured disc at C6-7 on the left consistent with his symptoms.? He also has foraminal stenosis at 5 6 probably bilaterally.? More bothersome however is the fact that he has what are some cord changes in that area at 5 6.? This may be early myelomalacia. Because of the explanation above we need a new MRI scan.? He stated that he knows that now he can be still for the entire MRI scan.? He will probably need surgical intervention mainly because of not only his neurological deficits of the left arm but also because of the long tract signs that he is exhibiting indicating that the spinal cord is in some degree of jeopardy.? I will see him after the new MRI scan and make further recommendations. Coding Level of Care Code Off vis,new,level 3 Diagnoses Herniated nucleus pulposus, C6-7 left? M50.223 Herniated nucleus pulposus, C5-6 left? M50.222 Time Spent (min) 35 Assessment and Plan Assessment and Plan (1) Herniated nucleus pulposus, C6-7 left: ?Status:?Acute (2) Herniated nucleus pulposus, C5-6 left:
[2022-08-22] VITALS (18 sets, daily range): BP systolic 131–181; BP diastolic 76–96; PULSE 96–128; RESP 16–18; TEMP 36.6–37.2; O2SAT 93–98; BMI 32.7
--- NOTE | 2022-08-22 06:30 | RAD_ITS ---
STUDY: X-RAY - CERVICAL SPINE REASON FOR EXAM: Male, 47 years old. ANTERIOR FUSION C5-6, C6-7 TECHNIQUE: Single lateral view(s) of the cervical spine were obtained. COMPARISON: 03/28/2022 FINDINGS: Single lateral intraoperative study performed. A localizer needle is noted anterior to mid C6 vertebral body. Endotracheal tube also noted. Normal anterior atlantoaxial articulation. Normal odontoid process. There is straightening of the normal cervical lordosis. Normal vertebral bodies and endplates. Mild disc space narrowing throughout the visualized cervical spine. The soft tissue structures are unremarkable. RAD/Spine 1 View Any Level IMPRESSION: Anterior localizer needle noted anterior to the mid aspect of C6 Electronically Signed: Dat Ambrosio MD at 10:22 EST ,
[2022-08-22] MEDS: Lactated Ringers 1,000 ML 15 ML IV (06:32)
[2022-08-22] MEDS: Acetaminophen 500 MG Tablet 1000 MG PO (06:35)
[2022-08-22] MEDS: dexAMETHasone 10 MG/ML Vial 8 MG IV (06:35)
[2022-08-22] MEDS: Magnesium 2 GM for ERAS IV (06:51)
--- NOTE | 2022-08-22 07:08 | SUR.PREOP ---
pt declined sq insulin as he has an insulin pump. adjusts insulin according to his pump/monitor
[2022-08-22] MEDS: Cefazolin 2 GM in 0.9% Normal Saline 100 ML IV (07:27)
--- NOTE | 2022-08-22 07:30 | DISC_PTH ---
PATIENT: PAULINA ACOSTA LOC: [facility] U#:[id number] AGE/SX: 47/M ROOM: DC314 RE08/22/[address]: Dr. Manjeet Dahl DO : 1975 BED: 1 DIS: 08/23/2022 SPEC #: [id number] RECD: 08/22/22 13:39 STATUS: HONG REQ #: [id number] CAITLIN: 08/22/22 07:[address]: Manjeet Dahl DEPT: SURGICAL PATHOLOGY RECD BY: Geovanna Guy ENTERED: 08/23/22 09:07 SP TYPE: DISC OTHR DR: MD Dr. Brian Horn DO Dr. Paul Nielsen, MD Tissues: A - Intervertebral disc, NOS B - Intervertebral disc, NOS Procedures: Surgery Specimen Level III HEADER OPERATION: ERAS, anterior cervical discectomy, interbody fusion C5-6, C6-7 PRE-OP DIAGNOSIS: Herniated nucleus pulposus C6-7 left, herniated nucleus pulposus C5-6 left TISSUE SUBMITTED: A ? Cervical 5-6 disc, B - Cervical 6-7 disc MICROSCOPIC DIAGNOSIS A. Intervertebral disc, C5-6, discectomy: Fragments of intervertebral disc with degenerative change. B. Intervertebral disc, C6-7, discectomy: Fragments of intervertebral disc with degenerative change. AM:major 08/24/2022 MICROSCOPIC DESCRIPTION Slides are reviewed. GROSS DESCRIPTION A - Received in fixative is one container labeled with the patient's name and designated cervical 5-6. The specimen consists of multiple indurated fragments of light robison-white soft tissue that in aggregate measure 5 x 3 x 0.2 cm. Consulting Nurse portions are submitted in one cassette. B - Received in fixative is one container labeled with the patient's name and designated cervical 6-7. The specimen consists of multiple indurated fragments of light robison-white soft tissue that in aggregate measure 6 x 6 x 0.5 cm. Consulting Nurse portions are submitted in one cassette. / AM:major 08/23/2022 TC:5 CPT: 48738 x2
--- NOTE | 2022-08-22 08:16 | RAD_ITS ---
STUDY: X-RAY - CERVICAL SPINE REASON FOR EXAM: Male, 47 years old. ANTERIOR FUSION C5-6, C6-7 TECHNIQUE: A single lateral view(s) of the cervical spine were obtained intraoperatively. COMPARISON: August 22, 2022 (0803 hours). FINDINGS: Current study demonstrates a surgical probe at C5-6 level. The remainder of the findings are essentially unchanged. Please refer to the operative report for further details. RAD/Spine 1 View Any Level IMPRESSION: Surgical probe at the C5-6 level. Electronically Signed: Abimael Isidro DO at 16:51 EST ,
[2022-08-22] MEDS: Lactated Ringers 1,000 ML 100 ML IV ×3 (09:01→16:53)
--- NOTE | 2022-08-22 09:13 | RAD_ITS ---
STUDY: X-RAY - CERVICAL SPINE REASON FOR EXAM: Male, 47 years old. ANTERIOR FUSION, C5-6, C6-7 TECHNIQUE: 1 view(s) of the cervical spine were obtained. COMPARISON: Earlier today FINDINGS: Single limited lateral view of the cervical spine performed in the operating room. Patient has undergone anterior cervical fusion between C5 and C7 since the previous study with synthetic disks placed at C5-6 and C6-7. No intraoperative complications noted. RAD/Spine 1 View Any Level IMPRESSION: No intraoperative complications during anterior cervical fusion between C5 and C7. Electronically Signed: Dat Ambrosio MD at 12:38 EST ,
[2022-08-22] MEDS: THROMBIN (RECOMBINANT) 20,000 UNIT VIAL 20000 UNIT TOPICAL (10:42)
[2022-08-22] MEDS: Heparin 10,000 UNITS/10 ML Vial 10000 UNITS (10:43)
--- NOTE | 2022-08-22 11:30 | PCM.OPRPT ---
Report of Operation Description of Surgical Findings:: Preoperative diagnosis: Severe left C7 radiculopathy secondary to foraminal stenosis Left and right C6 radiculopathy secondary to foraminal stenosis Postoperative diagnosis: The same Procedures: #1 anterior cervical fusion C6-7 CPT code 72941 #2 application of spine plate from C5-C7 CPT code 91540/59 #3 anterior cervical fusion C5-6 CPT code 22187/51 #4 insertion of anterior cage C6-7 CPT code 87404 #5 insertion of anterior cage C5-6 CPT code 68952/51 Surgeon: Dr. Dahl operations administrative assistant: Amy ISLAS Anesthesia: General endotracheal by [facility] EBL: Less than 30 cc Drains: 1/4 inch Marcos Complications: None Procedure: Patient was taken to the OR where he was placed in the supine position on the operating table. He was then placed under general endotracheal anesthesia. A Neil catheter was inserted. Neuro monitoring placed her leads on the patient. The neck and right iliac crest were prepped and draped in standard fashion. We obtained the bone marrow aspirate first from the right iliac crest. A puncture incision was made with a 15 blade and the Jamshidi needle was inserted and tamped into place with the fenestrations going all the way into the bone. 60 cc of bone marrow aspirate were then obtained and handed off to the customer account technician in the room. She was able to separate all the cells from the stem cells and concentrate the stem cells about 8 or 10 times. These were put back on the OR table. Note that I had taken a preoperative x-ray prior to the prep and I had cut a small incision at the starting point of the incision. I then started the incision at that point alert curved in line with longer's lines to the edge of the right sternocleidomastoid muscle. Subcutaneous tissues were incised the length of the skin incision. Then undermined the subcutaneous tissues in a cephalad and caudad direction and we launders were then put in place I then split the platysma longitudinally in line with its fibers and then I started exploiting the cervical fascial planes. First we opened the superficial cervical fascia followed by the opening of the pretracheal fascia. In this fashion I was able to identify the carotid I pulled it to the right side and protected it and was able to retract the strap muscles the trachea and esophagus to the left exposing the anterior cervical spine. I then opened the anterior longitudinal ligament in the middle with cautery identified to spaces thought to be C5-6 and C6-7. We put a needle marker in place at C5-6 and took an intraoperative x-ray that confirmed that we were indeed at C5-6. We then moved down 1 level and I marked the 6 7 space with cauterizing of the anterior annulus with a hole. This level was done first of course. We then cauterized the edge of the coli muscles on either side elevated them gently off of the disc space. Note that I used cautery to cauterize the anterior longitudinal ligament and periosteum above and below the space. This is to allow for a plate later. The actuarial intern retractors were then put in place given us good access to C6-7. I then cut the anterior annulus with a 15 blade removed it and remove more nucleus from within the disc space with pituitary rongeurs. I then used curettes to remove the remaining disc from the space. An intervertebral body distractor was then put on the right side thus opening of the space we then used a kurt bur to bur the uncinate process on the left repeatedly. This was done by burring following instillation of cold saline to keep the bone cool to prevent damage to the base of the nerve. This was done until the uncinate process with of it was a very thin shell and this was then removed using small curettes. This completely opened the base of the C7 nerve root we checked it with a nerve hook and of course was found to be quite open. I then removed all remaining cartilage off both endplates and used a kurt bur to better shape the space for the cage we had to bur the sides just a little in the back just a little to accommodate for cage. We trialed and found to be needed an 8 mm 8 degree large cage. The cage was then opened that was filled with demineralized bone matrix and it was inturned soaked in the patient's own stem cells. Note that demineralized bone has been processed to be a sponge basically. Thus soaking up the patient's own stem cells. With anesthesia pulling on the head of then tamped it into place and countersunk it a couple of millimeters. We then moved up to the space above removing the instrumentation for retraction using Cloward's to identify the space just above C6-7 I then cauterized the edge of the coli muscles on either side and use the same actuarial intern retractors that we use at the other level. Again I cauterized the anterior longitudinal ligament and periosteum above and below this disc space. This is to prepare for the plate eventually. I then cut the anterior annulus with a 15 blade note that the space was not quite as big as the other space. I removed this from the disc base with pituitary rongeurs and curettes. Then the distractor was placed on first the right side distracting the left I then used a kurt bur technique again like I did at the other level I would bur the uncinate process repeatedly followed by the instillation of cold saline till it was open and the foramen was open the remaining bone was removed with small for curettes. We then moved the distractor to the left side and distracted the right side and again a foraminotomies was done by removing the uncinate process again using the kurt bur not to be used a new bur at this point time and again it was left with a thin shell of bone overlying the base of the nerve this was removed with curettes completely decompressing the C6 nerve on the right side also. Cartilage was removed off of both endplates on both sides again the kurt bur was used to make space for the K and prior to putting the cage and we of course broach the space as we did the level below. This level we used a 7 mm large cage again it was filled with demineralized bone matrix soaked in the patient's own stem cells and tamped into place and countersunk a couple of millimeters. A 45 mm plate was then used anteriorly it was centered a pin was put in place to hold it and I began the process of using an awl to punch a hole first at C5 on the right side for the insertion of 14 mm screw then put another screw after using the awl opposite the pin at C6 on the left side. And the screw was inserted the pin was then removed a screw was put in its place and then the remaining 3 plate holes again were old and the 14 mm screws put on each of these points these were of corkscrew down through the locking mechanism inherent in the Spyder plate noted we thoroughly irrigated repeatedly in the course of the case to prevent infection. We had good hemostasis at this point we placed amniotic membrane over the plate to prevent adhesions onto the swollen esophagus or trachea a 1/4 inch [place] drain was inserted and closure was begun. I closed the platysma in running fashion with 5-0 Vicryl followed by closure of subcutaneous tissues with 5-0 Vicryl in interrupted fashion this brought the skin together and there was no need for outside stitches. Sterile dressings were then applied and a safety pin was placed through the drain to prevent suction into the wound. The patient was recovered in the OR he was then moved to his hospital bed and taken to recovery in satisfactory condition. This is the end of operative summary on [place]. This is Dr. Dahl dictating.
[2022-08-22 12:14] LABS: Bedside Glucose 220 mg/dL (74-106)
[2022-08-22] MEDS: Cefazolin 1 GM/50 ML BAG IV ×2 (15:34→22:50)
[2022-08-22] MEDS: oxyCODONE 5 MG Tablet PO ×2 (15:37→20:36)
--- NOTE | 2022-08-22 16:12 | PCM.PN.HOSP ---
Subjective Subjective Patient reports since OR still some aching to his neck rates it currently 6 out of 10 with recent oral pain medication administration. His primary complaint currently is wanting his Neil catheter out and to be able to sit upright in the bedside chair. He denies being hungry but denies any nausea. He does report still some paresthesias and decreased sensation in his fingertips to his right upper extremity. Patient denies fevers, chills, nausea, emesis, abdominal pain, chest pain or dyspnea. Objective Data Objective Data Vital Signs: Vital Signs Temp Pulse Resp BP Pulse Ox O2 Del Method O2 Flow Rate 98.6 F 105 H 16 157/92 H 95 Room Air 4 08/22/22 14:55 08/22/22 14:55 08/22/22 14:55 08/22/22 14:55 08/22/22 14:55 08/22/22 15:54 08/22/22 14:55 Oxygen Flow Rate (L/min) 4 Oxygen Delivery Method Room Air Weight: 221 lb 12.56 oz Body Mass Index (BMI) 32.7 Intake & Output: Intake and Output for Last 24 Hours 08/20/22 08/21/22 08/22/22 23:59 23:59 23:59 Intake Total 2719 / 2719 Output Total 1400 / 1400 Balance 1319 / 1319 Lab / Micro Data Result Diagrams: 08/08/22 10:41 08/08/22 10:41 Labs: Laboratory Results - last 24 hr 08/22/22 06:15: POC Glucose 220 H Micro: Microbiology 08/08/22 10:41 Nasal Secretion Nasal Screen MRSA/MSSA - Final Radiography Diagnostic Testing: Radiology Impression Spine X-Ray 08/22/22 06:30 IMPRESSION: Anterior localizer needle noted anterior to the mid aspect of C6 Electronically Signed: Dat Ambrosio MD at 10:22 EST , Spine X-Ray 08/22/22 09:13 IMPRESSION: No intraoperative complications during anterior cervical fusion between C5 and C7. Electronically Signed: Dat Ambrosio MD at 12:38 EST , Physical Exam Narrative Physical Examination: General: Awake, alert, oriented x 3 and cooperative, seated upright in MS bed, notes aching to the neck still, 6 out of 10, soft neck brace in place. Skin: Normal color, normal turgor, no icterus, no cyanosis except for expected anterior cervical neck dressings in place with no drainage noted at this time. HEENT: AT/NC, EOMI, PERRLA, mildly dry MM, no carotid bruits or JVD noted. Lungs: Mild diminished, greater bases, mildly decreased effort, no rales, ronchi or wheezing. Heart: Regular rate and rhythm; no gallop, rub audible. Abdomen: Soft, obese, NTTP, ND, mildly hyperactive BS, no HSM. Extremities: No cyanosis, clubbing, or edema. Neurological: Patient awake, alert, oriented as noted, cognitive function intact; pupils equally reactive to light and accommodation, cranial nerves II-XII grossly normal, moving all 4 extremities, still notes some mild paresthesias to the right hand, strength given recent OR moderately global decreased but improving. Psychiatric: Affect appears mildly fatigued otherwise normal, no acute evidence of depressive or anxiety feelings. Assessment & Plan Assessment/Plan (1) Herniated nucleus pulposus, C6-7 left: (2) Herniated nucleus pulposus, C5-6 left: PLAN: Plan The patient is a 47 y/o M w/ PMHx: Diabetes mellitus type I with insulin pump in place, HLD, HTN, Anxiety and Depression, Obesity who presents to the [facility] on 08/22/22 for planned surgical intervention per Dr. Dahl for ongoing C6 left and right as well as left C7 radiculopathy secondary to foraminal stenosis. #1. Severe left C7 radiculopathy, left and right C6 radiculopathy secondary to foraminal stenosis: Failed conservative therapies and treatments, admitted per Hesham Wyman for planned 08/22/22 anterior cervical C6-C7 fusion with a spine plate from C5-C6 as well as an anterior cage C5-7, post-operative pain management, bowel regimen, DVT Prophylaxis, PT/OT/CM per Orthopedic surgery discretion. #2. Diabetes mellitus type I: We will continue patient home insulin pump with routine pump bolusing per his home protocol regimen with a hypoglycemic protocol in addition and as noted insulin sliding scale per his usual regimen. #3. Anxiety and depression: We will continue patient home citalopram, bupropion as well as BuSpar regimen. #4. Hypertension: We will continue patient home lisinopril regimen, as needed IV hydralazine. #5. Hyperlipidemia: Not on regimen, defer to outpatient. #6. Obesity: Weight loss and lifestyle changes encouraged. #7. MAUREEN: CPAP nightly. #8. DVT prophylaxis: SCDs, chemoprophylaxis per surgery discretion given recent OR. Charges/Coding Visit Charges Inpatient E&M: 60448 Subs Hosp L3
[2022-08-22] MEDS: Ensure Surgery 237 ML LIQUID PO (16:53)
--- NOTE | 2022-08-22 16:56 | NURSING ---
pt was 251 on insulin pump, pt gave 45 unit bolus
[2022-08-22] MEDS: Zolpidem Tartrate 5 MG Tablet PO (20:36)
--- NOTE | 2022-08-22 22:53 | NURSING ---
blood sugar 194 at this time.
[2022-08-23 02:34] VITALS: BP 129/71; PULSE 98; RESP 16; TEMP 36.9; O2SAT 94
[2022-08-23] MEDS: oxyCODONE 5 MG Tablet PO ×2 (02:39→08:23)
[2022-08-23] MEDS: Acetaminophen 325 MG Tablet 650 MG PO ×2 (02:42→08:23)
--- NOTE | 2022-08-23 05:59 | NURSING ---
patient blood sugar 271. Patient gave self 12.7 units of insulin bolus.
--- NOTE | 2022-08-23 06:02 | NURSING ---
Patient c/o slight dizziness when up. Scopolamine patch removed at this time.
[2022-08-23 07:42] VITALS: BP 127/69; PULSE 101; RESP 16; TEMP 36.9; O2SAT 97
[2022-08-23] MEDS: Lisinopril 5 MG Tablet PO (08:20)
[2022-08-23] MEDS: Ensure Surgery 237 ML LIQUID PO ×2 (08:20→12:02)
--- NOTE | 2022-08-23 10:00 | CASEMGMT ---
RN CM Face to Face with patient for initial transition planning/care coordination assessment. RN CM introduced self and role at [facility]. Patient sitting in chair, alert and oriented, at bedside. Patient willing to participate in assessment and is able to answer all questions appropriately. Care providers, pharmacy, and demographics verified. Patient wishes to discharge home, denies need for home health at this time. Patient states he has no further needs or concerns at this time. CM to follow for discharge planning needs that may arise. PCP: [facility] Specialists: lisandro Dahl; King counter top assembler Preferred Pharmacy: [facility] retail Insurance: [facility] Prescription Benefit: yes Living Will/HPOA: none LNOK: Living Arrangements: Patient lives with in a 2 story home. Patient states he is independent and able to ambulate stairs. Transportation: self, DME/HHC: Patient states he has cane, walker, grab bars, glucometer with supplies, and insulin pump with supplies. Patient denies previous HHC Disposition Plan: Patient to discharge home with family support and follow-up plans in place. Sweetie WAN, RN, CM
[2022-08-23 10:54] VITALS: BP 114/71; PULSE 101; RESP 16; TEMP 36.6; O2SAT 96
--- NOTE | 2022-08-23 12:20 | DCINST_ITS ---
Discharge Instructions Activity May shower in (days): 5 May resume sexual activity in: 10-14 days Lifting Restrictions: 20# Follow Up Care Test Results: Test results from this visit will be discussed in further detail at your follow- up appointment, if applicable. Discharge Plan Admission Admit Date/Time: 08/22/22 11:22 Primary Reason for Your Visit: cervical fusion Attending Provider: Manjeet Dahl Primary Care Provider: Walt Marinelli Consulting Providers: Emma Giraldo ; Brian Contreras Discharge Orders/Prescriptions Prescriptions: Continued Baqsimi 3 mg/actuation spray,non-aerosol 3 mg INTRANASAL ONCE Qty: 2 6RF Rx Instructions: as a single dose bupropion HCl 150 mg tablet sustained-release 12 hr 300 mg PO DAILY testosterone cypionate [Depo-Testosterone] 200 mg/mL oil 100 mg IM Q2W Qty: 1 0RF buspirone 7.5 mg tablet 7.5 mg PO BID Label Comments: TAKE 1 TABLET BY MOUTH 2ITIMES A DAY multivitamin 1 EACH tablet 1 ea PO DAILY citalopram 20 MG tablet 40 mg PO DAILY insulin aspart U-100 100 UNIT/ML solution 1.55 unit continuous IV infusion CONT Label Comments: BOLUS WITH MEALS Rx Instructions: insulin pump cholecalciferol (vitamin D3) 1,000 UNIT capsule 5,000 unit PO DAILY lisinopril 5 mg Tablet 5 mg PO DAILY Calcium 600 with Vitamin D3 600 mg-10 mcg (400 unit) Tablet,Chewable 1 tab PO DAILY B12 5,000-100 mcg Lozenge 1 jeancarlos SUBLINGUAL DAILY Other Ambulatory Orders: 12 Lead EKG (Routine) Timeframe: 20220804 Location: None Selected Ordered By: Dr. Manjeet Dahl Referrals / Follow Up: Walt Marinelli MD [Primary Care Provider] - Disposition Disposition (needs filled in before D/C Order can be placed): Home, Self Care
--- NOTE | 2022-08-23 12:34 | PCM.DC.SUM ---
Providers Date of Admission: 08/22/22 Primary Care Physician: Dr. Walt Marinelli MD Attending Physician: This is discharge summary on Da[facility] Wood. This patient was admitted yesterday 22 August. He underwent anterior cervical fusion at C6-7 and C5-6. Did well postoperatively. Today he reports that his arm pain in both of his arms is completely resolved. His voice is clear. The dressing was changed I removed his drain and placed new dressings on. I gave him and his directions regarding his activities. Already has an appointment to see me in the office in [address] his car probably in 14 days. He knows to take the dressing off in 4 days and 5 days he can start showering again. He is not to lift more than 20 pounds. There is the end of discharge summary on Dawood Wood. This is Dr. Dahl dictating. Consultations 08/22/22 12:09 Consult: Hospitalist Routine Consulting Provider: Emma Giraldo Reason for Consult: med management EMERGENT Consult: No MD Notified: Yes Date Notified: 08/22/22 Time Notified: 11:25 Method of Notification: Verbal Reason For Visit: ANTERIOR CERVICAL DISCECTOMY Diagnosis Discharge Diagnosis (1) Herniated nucleus pulposus, C6-7 left: Status: Acute Code(s): M50.223 - Other cervical disc displacement at C6-C7 level (2) Herniated nucleus pulposus, C5-6 left: Status: Acute Code(s): M50.222 - Other cervical disc displacement at C5-C6 level Medications at Discharge Home Medications cholecalciferol (vitamin D3) 25 mcg (1,000 unit) capsule 5,000 unit PO DAILY 03/08/18 citalopram 20 mg tablet 40 mg PO DAILY 03/08/18 insulin aspart U-100 100 unit/mL subcutaneous solution 1.55 unit continuous IV infusion CONT 03/08/18 multivitamin 1 ea PO DAILY 03/08/18 bupropion HCl 150 mg tablet,12 hr sustained-release 300 mg PO DAILY 01/16/20 glucagon 3 mg/actuation nasal spray (Baqsimi) 3 mg intranasal ONCE #2 ea 01/16/20 testosterone cypionate 200 mg/mL intramuscular oil (Depo-Testosterone) 100 mg (0.5 mL) IM Q2W #1 mL 01/16/20 buspirone 7.5 mg tablet 7.5 mg PO BID 08/16/22 lisinopril 5 mg tablet 5 mg PO DAILY 08/01/22 calcium carbonate 600 mg-vitamin D3 10 mcg (400 unit) chewable tablet (Calcium 600 with Vitamin D3) 1 tab PO DAILY 08/22/22 cyanocobalamin (B12)-cobamamide 5,000 mcg-100 mcg sublingual lozenge (B12) 1 jeancarlos sublingual DAILY 08/22/22 oxycodone-acetaminophen 5 mg-325 mg tablet 1 tab PO Q6H PRN pain 7 days #30 tabs 08/23/22 Weight / BMI Weight Weight: 221 lb 12.56 oz Body Mass Index (BMI) 32.7 ABG / Lab / Microbiology Data Result Diagrams: 08/08/22 10:41 08/08/22 10:41 Microbiology: Microbiology 08/08/22 10:41 Nasal Secretion Nasal Screen MRSA/MSSA - Final Radiography Diagnostic Testing: Radiology Impression Spine X-Ray 08/22/22 08:16 IMPRESSION: Surgical probe at the C5-6 level. Electronically Signed: Abimael Isidro DO at 16:51 EST Reading Location ID and State: [address] [place] [address] Tel [phone], Service support , Spine X-Ray 08/22/22 09:13 IMPRESSION: No intraoperative complications during anterior cervical fusion between C5 and C7. Electronically Signed: Dat Ambrosio MD at 12:38 EST Reading Location ID and State: [address] [place] [address] , Service support , D/C Instructions May shower in (days): 5 May resume sexual activity in: 10-14 days Meaningful Use Info Meaningful Use Diagnoses (Choose all that apply): None applicable Discharge Plan Admission Admit Date/Time: 08/22/22 11:22 Primary Reason for Your Visit: cervical fusion Attending Provider: Manjeet Dahl Primary Care Provider: Walt Marinelli Consulting Providers: Emma Giraldo ; Brian Contreras Discharge Orders/Prescriptions Prescriptions: Continued Baqsimi 3 mg/actuation spray,non-aerosol 3 mg INTRANASAL ONCE Qty: 2 6RF Rx Instructions: as a single dose bupropion HCl 150 mg tablet sustained-release 12 hr 300 mg PO DAILY testosterone cypionate [Depo-Testosterone] 200 mg/mL oil 100 mg IM Q2W Qty: 1 0RF buspirone 7.5 mg tablet 7.5 mg PO BID Label Comments: TAKE 1 TABLET BY MOUTH 2ITIMES A DAY multivitamin 1 EACH tablet 1 ea PO DAILY citalopram 20 MG tablet 40 mg PO DAILY insulin aspart U-100 100 UNIT/ML solution 1.55 unit continuous IV infusion CONT Label Comments: BOLUS WITH MEALS Rx Instructions: insulin pump cholecalciferol (vitamin D3) 1,000 UNIT capsule 5,000 unit PO DAILY lisinopril 5 mg Tablet 5 mg PO DAILY Calcium 600 with Vitamin D3 600 mg-10 mcg (400 unit) Tablet,Chewable 1 tab PO DAILY B12 5,000-100 mcg Lozenge 1 jeancarlos SUBLINGUAL DAILY No Action oxycodone-acetaminophen 5-325 mg tablet 1 tab PO Q6H PRN (Reason: pain) 7 Days Qty: 30 0RF Other Ambulatory Orders: 12 Lead EKG (Routine) Timeframe: 20220804 Location: None Selected Ordered By: Dr. Manjeet Dahl Referrals / Follow Up: Walt Marinelli MD [Primary Care Provider] - Disposition Disposition (needs filled in before D/C Order can be placed): Home, Self Care
== END 2022-08-23 13:42 | disposition home or self-care (01) ==
LOC: SDC 12:30 → MS3 12:30
PROVIDERS: Admitting Provider Orthopaedic Surgery; PCP Family Medicine; Referring Provider Orthopaedic Surgery; Visit Provider Orthopaedic Surgery
PROC: (CPT 22551; principal; 2022-08-22 07:00)
DX: M50.122 Cervical disc disorder at C5-C6 level with radiculopathy (principal); E10.9 Type 1 diabetes mellitus without complications; Z79.4 Long term (current) use of insulin; M48.02 Spinal stenosis, cervical region; Z79.899 Other long term (current) drug therapy; F41.9 Anxiety disorder, unspecified; F32.A Depression, unspecified; Z98.84 Bariatric surgery status; G47.33 Obstructive sleep apnea (adult) (pediatric); E78.5 Hyperlipidemia, unspecified; Z46.81 Encounter for fitting and adjustment of insulin pump; Z96.41 Presence of insulin pump (external) (internal); E66.9 Obesity, unspecified; Z68.32 Body mass index [BMI] 32.0-32.9, adult
CPT/HCPCS: 22551; 22552; 20931; 22853 ×2; 22845; 00670; 36415; 72020; 80048; 82962; 83735; 85025; 86703; 86706; 86708; 86803; 87077; 87081; 88304; 93005; 96361; 96365; 96366; 99218; 99251; C1713; J7120; G0378; G0463; J2405

== ENCOUNTER → 2023-06-19 | Outpatient (CLI) | payer OTHER, SELFPAY ==
[2023-06-19 17:58] LABS: Anion Gap 4 (5-15); BUN 14 mg/dL (7-18); BUN/Creat Ratio 14.2 RATIO (10-20); Calcium,Total 8.8 mg/dL (8.5-10.1); Chloride 105 mmol/L (98-107); Cholesterol 219 mg/dL (200); Creatinine, Serum 0.99 mg/dL (0.70-1.30); EST Glomerular Filtration Rate 86 mL/min (>60); Est Glom Filt Rate - Afr Amer 104 mL/min (>60); Glucose 127 mg/dL (74-106); High Density Lipoprotein 57 mg/dL; Potassium 3.9 mmol/L (3.5-5.1); Sodium Level 140 mmol/L (136-145); Triglycerides 148 mg/dL; Very Low Density Lipoprotein 30 mg/dL (5-40)
[2023-06-19 18:18] LABS: Microalbumin,Random Urine 10.8 mg/L (NO RANGE EST.); Microalbumin:Creatinine Ratio 7.8 mg/g CRE (<30 mg/g CRE)
== END | disposition home or self-care (01) ==
LOC: MTLAB 15:47
PROVIDERS: PCP Family Medicine; Referring Provider Family Medicine; Visit Provider Family Medicine
DX: E11.9 Type 2 diabetes mellitus without complications (principal)
CPT/HCPCS: 36415; 80048; 80061; 82043; 82570

== ENCOUNTER → 2023-08-03 | Outpatient (CLI) | payer OTHER, SELFPAY ==
--- NOTE | 2023-08-03 16:42 | RAD_ITS ---
STUDY: X-RAY - LEFT KNEE REASON FOR EXAM: Male, 48 years old. PAIN TECHNIQUE: 4 view(s) of the knee. COMPARISON: None. FINDINGS: Normal visualized distal femur. Normal visualized proximal tibia and fibula. Normal proximal tibiofibular articulation. Normal medial femorotibial compartment. Normal lateral femorotibial compartment. Normal patellofemoral articulation. The soft tissue structures are unremarkable. RAD/Knee 4 or More Views IMPRESSION: Normal x-ray examination of the knee. Electronically Signed: Gene Carvalho MD at 20:09 EST ,
== END | disposition home or self-care (01) ==
LOC: MTRAD 16:41
PROVIDERS: PCP Family Medicine; Referring Provider Family Medicine; Visit Provider Family Medicine
DX: M25.562 Pain in left knee (principal)
CPT/HCPCS: 73564

== ENCOUNTER → 2023-10-31 | Outpatient (CLI) | payer OTHER, SELFPAY ==
--- OUTSIDE RECORDS SUMMARY | 2023-10-31 07:13 | XMS RPT_ITS | CCD ---
Author Name Unknown Address [address] [place] [address] Organization [facility] Care Team Providers Care Inspector And Hand Packager Name Role Phone Deepika Portillo LPN Unavailable Unavailab Michelle Angel Unavailable Unavailable Deepika Portillo LPN Unavailable Unavailab Michael Jean-Baptiste Unavailable Medications Completed/Discontinued Medications Medication Drug Class(es) Dates Sig (Normalized) Sig (Original) amLODIPine 5 mg / benazepril hydrochloride 10 mg oral capsule (4 sources) Dihydropyridine Calcium Channel Miranda, Angiotensin Converting Enzyme Inhibitor Start: 03-17-2014 AMLODIPINE BESY-BENAZEPRIL HCL 5-10 MG CAPS daily AMLODIPINE BESY-BENAZEPRIL HCL [id number] Pierre Durbin aspirin 325 mg oral tablet (4 sources) Nonsteroidal Anti-inflammatory Drug Start: 03-17-2014 ASPIRIN 325 MG TABS daily ASPIRIN [id number] Pierre Durbin AZITHROMYCIN (8 sources) Macrolide Antimicrobial Start: 10-24-2016 ZITHROMAX Z-BLAISE 250 MG TABS per package instructions AZITHROMYCIN [id number] Marcelo ISLAS Problems Active Problems Problem Classification Problem Date Documented Da te Episodic/Chronic Unclassified (3 sources) Encounter for check-up ; Translations: [Encounter for general adult medical examination without abnormal findings] Onset: 06-20-2017 06-20-2017 Past or Other Problems Problem Classification Problem Date Documented Da te Episodic/Chronic Influenza (4 sources) Influenza; Translations: [Influenza due to unidentified influenza virus with other respiratory manifestations] Onset: 10-24-2016 10-24-2016 Episodic Medical examination/evaluation (1 source) Encounter for general adult medical examination without abnormal findings; Translations: [Encounter for general adult medical examination without abnormal findings] Onset: 06-20-2017 06-20-2017 Episodic Other connective tissue disease (4 sources) Lateral epicondylitis, unspecified elbow; Translations: [Lateral epicondylitis, unspecified elbow] Onset: 03-17-2014 03-18-2014 Episodic Other nervous system disorders (2 sources) Anesthesia of skin; Translations: [Anesthesia of skin] Onset: 06-29-2017 06-29-2017 Episodic Other non-traumatic joint disorders (4 sources) Pain in unspecified elbow; Translations: [Pain in unspecified elbow] Onset: 03-17-2014 03-18-2014 Episodic Other skin disorders (2 sources) [place] of toe; Translations: [Corns and callosities] Onset: 06-29-2017 06-29-2017 Episodic Other upper respiratory infections (8 sources) Sinusitis; Translations: [Upper respiratory infection] Onset: 10-24-2016 10-24-2016 Episodic Results Test Name Value Interpretation Reference Range Facil ity Vital Signs Date Time Vital Sign Value Performing Clinician Leia espinoza 06-29-2017 16:07-0400 BMI (Body Mass Index) 37.32 kg/m2 Michael ISLAS [facility] Work Phone: 06-29-2017 16:07-0400 Body Temperature 97.6 [degF] Michael ISLAS [facility] Work Phone: 06-29-2017 16:07-0400 BP Diastolic 88 mm[Hg] Michael ISLAS [facility] Work Phone: 06-29-2017 16:07-0400 BP Systolic 122 mm[Hg] Michael ISLAS [facility] Work Phone: 06-29-2017 16:07-0400 Height 176.53 cm Michael ISLAS [facility] Work Phone: 06-29-2017 16:07-0400 Pulse (Heart Rate) 95 /min Michael ISLAS [facility] Work Phone: 06-29-2017 16:07-0400 Respiratory Rate 12 /min Michael ISLAS [facility] Work Phone: 06-29-2017 16:07-0400 Weight 116.3 kg Michael Wood ISLAS [facility] Work Phone: 06-20-2017 14:12-0400 BMI (Body Mass Index) 36.82 kg/m2 Deepika Portillo LPN [facility] Work Phone: 06-20-2017 14:12-0400 Body Temperature 97.4 [degF] Deepika Portillo LPN [facility] Work Phone: 06-20-2017 14:12-0400 BP Diastolic 72 mm[Hg] Deepika Portillo LPN [facility] Work Phone: 06-20-2017 14:12-0400 BP Systolic 118 mm[Hg] Deepika Portillo LPN [facility] Work Phone: 06-20-2017 14:12-0400 Height 176.53 cm Deepika Portillo LPN [facility] Work Phone: 06-20-2017 14:12-0400 Pulse (Heart Rate) 97 /min Deepika Portillo LPN [facility] Work Phone: 06-20-2017 14:12-0400 Respiratory Rate 15 /min Deepika Portillo LPN [facility] Work Phone: 06-20-2017 14:12-0400 Weight 114.76 kg Deepika Portillo LPN [facility] Work Phone: 10-24-2016 09:14-0500 BSA (Body Surface Area) 2.23 m2 Deepika Portillo LPN [facility] Work Phone: Procedures Date Procedure Procedure Detail Performing Clinician Start: 06-20-2017 End: 06-20-2017 [facility] Marcelo Burton Work Phone: Start: 06-20-2017 End: 06-20-2017 [facility] Marcelo Burton Work Phone: Start: 10-24-2016 End: 01-31-2017 [facility] influenza Marcelo ISLAS Work Phone: Start: 10-24-2016 End: 10-24-2016 Influenza assay w/optic Marcelo Dubois A Work Phone: Plan of Treatment Date Care Activity Detail Author Start: 06-29-2017 End: 06-29-2017 Appointment Appointment [facility] Work Phone: Start: 06-29-2017 End: 06-29-2017 Podiatry Referral Podiatry Referral [facility] Work Phone: Start: 06-20-2017 End: 06-20-2017 Appointment Appointment [facility] Work Phone: Patient Education [employer] Work Phone: Summary Purpose Family History No Family History Records Found Advance Directives No Advanced Directives Records Found Additional Source Comments (unrecognized sect ion and content) No Status Records Found INFORMATION SOURCE (unrecogn ized section and content) FOR RECORDS PERTAINING TO PATIENTS WHO ARE OR HAVE BEEN ENROLLED IN A CHEMICAL DEPENDENCY/SUBSTANCEABUSE PROGRAM, SOME INFORMATION MAY BE OMITTED. This clinical summary was aggregated from multiple sources. Caution should be exercised in using it in the provision of clinical care. This summary normalizes information from multiple sources, and as a consequence, information in this document may materially change the coding, format and clinical context of patient data. In addition, data may be omitted in some cases. CLINICAL DECISIONS SHOULD BE BASED ON THE PRIMARY CLINICAL RECORDS. [facility] [employer] provides no warranty or guarantee of the accuracy or completeness of information in this document.
--- NOTE | 2023-10-31 09:45 | NEURO ---
NCS and/or EMG Patient Report Ordering Doctor: Manjeet Dahl DATE OF SERVICE: 10/31/23 [place] presents for electrodiagnostic testing of the upper limbs. Reports numbness and tingling in both hands. He also has pain around the left shoulder radiating to the chest. He has a history of cervical fusion in July 2022. Electrodiagnostic findings: Left median motor nerve demonstrates prolonged distal latency with normal amplitude and conduction velocity. Right median motor nerve demonstrates prolonged distal latency with normal amplitude and reduced conduction velocity. Ulnar motor responses are within normal limits bilaterally. Normal median and ulnar F?waves. Prolonged median sensory latency at the wrist bilaterally. Normal ulnar and radial sensory responses. Needle EMG testing was performed the upper limbs. No denervation was noted in any muscles tested. Testing included the left infraspinatus and supraspinatus. No denervation noted in the cervical paraspinals. Electrodiagnostic impression: This is an abnormal study in the upper limbs. 1. Electrodiagnostic findings suggestive of bilateral median mononeuropathy. This is consistent with a mild bilateral carpal tunnel syndrome. 2. No electrodiagnostic evidence is noted for ulnar neuropathy, including cubital tunnel syndrome. 3. No electrodiagnostic evidence is noted for cervical radiculopathy. 4. There is no electrodiagnostic evidence for left suprascapular neuropathy. Multi Select Codes Neurology Neurology Interp Codes: 06746-08 Musc test done w/n test comp (interp) (2) and 02444-81 Nrv cndj test 13/> studies (interp)
== END | disposition home or self-care (01) ==
LOC: PSN 07:09
PROVIDERS: PCP Family Medicine; Referring Provider Orthopaedic Surgery; Visit Provider Orthopaedic Surgery
DX: G56.83 Other specified mononeuropathies of bilateral upper limbs (principal); G56.03 Carpal tunnel syndrome, bilateral upper limbs
CPT/HCPCS: 95886; 95913

== ENCOUNTER → 2023-11-14 | Outpatient (CLI) | payer OTHER, SELFPAY ==
--- OUTSIDE RECORDS SUMMARY | 2023-11-14 10:12 | XMS RPT_ITS | CCD ---
Author Name Unknown Address [address] [place] [address] Organization [facility] Care Team Providers Care Medical Laboratory Technical Officer Name Role Phone Deepika Portillo LPN Unavailable Unavailab Michelle Angel Unavailable Unavailable Deepika Portillo LPN Unavailable Unavailab Michael Jean-Baptiste Unavailable Medications Completed/Discontinued Medications Medication Drug Class(es) Dates Sig (Normalized) Sig (Original) amLODIPine 5 mg / benazepril hydrochloride 10 mg oral capsule (4 sources) Dihydropyridine Calcium Channel Miranda, Angiotensin Converting Enzyme Inhibitor Start: 03-17-2014 AMLODIPINE BESY-BENAZEPRIL HCL 5-10 MG CAPS daily AMLODIPINE BESY-BENAZEPRIL HCL [id number] Pierre Durbin aspirin 325 mg oral tablet (4 sources) Nonsteroidal Anti-inflammatory Drug Start: 03-17-2014 ASPIRIN 325 MG TABS daily ASPIRIN [id number] Pierre Durbin AZITHROMYCIN (8 sources) Macrolide Antimicrobial Start: 10-24-2016 ZITHROMAX Z-BLAISE 250 MG TABS per package instructions AZITHROMYCIN [id number] Marcelo ISLAS Problems Active Problems Problem Classification [...] 03-18-2014 Episodic Other skin disorders (2 sources) [place] of toe; Translations: [Corns and callosities] Onset: 06-29-2017 06-29-2017 Episodic Other upper respiratory infections (8 sources) Sinusitis; Translations: [Upper respiratory infection] Onset: 10-24-2016 10-24-2016 Episodic Results Test Name Value Interpretation Reference Range Facil ity Vital Signs Date Time Vital Sign Value Performing Clinician Leia espinoza 06-29-2017 16:07-0400 BMI (Body Mass Index) 37.32 kg/m2 Michael ISLAS [facility] Work Phone: 06-29-2017 16:07-0400 Body Temperature 97.6 [degF] Michael ISLAS [facility] Work Phone: 06-29-2017 16:07-0400 BP Diastolic 88 mm[Hg] Michael ISLAS [facility] Work Phone: 06-29-2017 16:07-0400 BP Systolic 122 mm[Hg] Michael ISLAS [facility] Work Phone: 06-29-2017 16:07-0400 Height 176.53 cm Michael ISLAS [facility] Work Phone: 06-29-2017 16:07-0400 Pulse (Heart Rate) 95 /min Michael ISLAS [facility] Work Phone: 06-29-2017 16:07-0400 Respiratory Rate 12 /min Michael ISLAS [facility] Work Phone: 06-29-2017 16:07-0400 Weight 116.3 kg Michael Wood ISLAS [facility] Work Phone: 06-20-2017 14:12-0400 BMI (Body Mass Index) 36.82 kg/m2 Deepika Portillo LPN [facility] Work Phone: 06-20-2017 14:12-0400 Body Temperature 97.4 [degF] Deepika Portillo LPN [facility] Work Phone: 06-20-2017 14:12-0400 BP Diastolic 72 mm[Hg] Deepika Portillo LPN [facility] Work Phone: 06-20-2017 14:12-0400 BP Systolic 118 mm[Hg] Deepika Portillo LPN [facility] Work Phone: 06-20-2017 14:12-0400 Height 176.53 cm Deepika Portillo LPN [facility] Work Phone: 06-20-2017 14:12-0400 Pulse (Heart Rate) 97 /min Deepika Portillo LPN [facility] Work Phone: 06-20-2017 14:12-0400 Respiratory Rate 15 /min Deepika Portillo LPN [facility] Work Phone: 06-20-2017 14:12-0400 Weight 114.76 kg Deepika Portillo LPN [facility] Work Phone: 10-24-2016 09:14-0500 BSA (Body Surface Area) 2.23 m2 Deepika Portillo LPN [facility] Work Phone: Procedures Date [...] Author Start: 06-29-2017 End: 06-29-2017 Appointment Appointment [facility] Work Phone: Start: 06-29-2017 End: 06-29-2017 Podiatry Referral Podiatry Referral [facility] Work Phone: Start: 06-20-2017 End: 06-20-2017 Appointment Appointment [facility] Work Phone: Patient Education [employer] Work Phone: Summary [...] BE BASED ON THE PRIMARY CLINICAL RECORDS. [facility] [employer] provides no warranty or guarantee of the accuracy or completeness of information in this document.
[2023-11-14 12:41] LABS: Absolute Lymphocyte Count 1.19 X10^3/uL (0.83-4.51); Absolute Neutrophil Count 2.4 X10^3/uL (2.0-7.7); Basophil# 0.04 X10^3/uL; Eosinophil# 0.14 X10^3/uL; Eosinophils% 3.4 % (0-5); Hemoglobin 14.8 g/dL (13.0-16.5); Lymphocyte # 1.19 X10^3/ul (0.83-4.51); Lymphocyte % 28.5 % (19-41); Mean Corp Hgb Conc 33.6 g/dL (32-36); Mean Corpuscular Hgb 29.6 pg (27.0-32.0); Mean Platelet Vol. 10.3 fl (6.2-12.0); Monocyte# 0.41 X10^3/uL; Monocyte% 9.8 % (0-10); NRBC Flagged by Analyzer 0 % (0-5); Neutrophil # 2.38 X10^3/uL (2.7-7.7); Neutrophil % 57.1 % (47-70); Platelet Count 233 K/mm3 (150-450); RBC Distribution Width CV 11.9 % (11.6-14.6); RBC Distribution Width SD 38.2 fl (35.1-43.9); White Blood Count 4.2 K/mm3 (4.4-11.0)
[2023-11-14 12:58] LABS: PSA,Total - Annual Screen 1.17 ng/mL (0.00-4.00)
[2023-11-14 13:12] LABS: AST(SGOT) 35 U/L (15-37); Alanine Aminotransfer ALT/SGPT 49 U/L (16-61); Albumin, Serum 3.6 g/dL (3.2-5.0); Alkaline Phosphatase 57 U/L (45-117); Anion Gap 3 (5-15); BUN 16 mg/dL (7-18); BUN/Creat Ratio 16.1 RATIO (10-20); Calcium,Total 9.1 mg/dL (8.5-10.1); Chloride 107 mmol/L (98-107); Cholesterol 172 mg/dL (200); Creatinine, Serum 0.99 mg/dL (0.70-1.30); EST Glomerular Filtration Rate 86 mL/min (>60); Est Glom Filt Rate - Afr Amer 104 mL/min (>60); Globulin 3.6 g/dL (2.2-4.2); Glucose 154 mg/dL (74-106); High Density Lipoprotein 68 mg/dL; Potassium 4.9 mmol/L (3.5-5.1); Protein, Total 7.2 g/dL (6.4-8.2); Sodium Level 138 mmol/L (136-145); Triglycerides 86 mg/dL; Very Low Density Lipoprotein 17 mg/dL (5-40)
== END | disposition home or self-care (01) ==
PROVIDERS: Internal Medicine Endocrinology, Diabetes & Metabolism; PCP Family Medicine; Referring Provider Family Medicine; Visit Provider Family Medicine
DX: E10.9 Type 1 diabetes mellitus without complications (principal); Z12.5 Encounter for screening for malignant neoplasm of prostate
CPT/HCPCS: 36415; 80053; 80061; 84153; 85025; G0103

== ENCOUNTER → 2023-12-04 | Outpatient (CLI) | payer OTHER, SELFPAY ==
--- NOTE | 2023-12-04 16:20 | MRI_ITS ---
STUDY: MRI LEFT KNEE REASON FOR EXAM: Male, 48 years old. Pain TECHNIQUE: Standardized fat and water weighted pulse sequences were obtained in all 3 orthogonal planes. COMPARISON: X-ray August 03, 2023 FINDINGS: Normal medial meniscus. Normal hyaline cartilage of the medial femorotibial compartment. Normal medial femoral condyle and tibial plateau. Normal medial collateral ligamentous complex (MCL). Normal distal semimembranosus, gracilis and semitendinosus tendons. Normal lateral meniscus. Normal hyaline cartilage of the lateral femorotibial compartment. Normal lateral femoral condyle and tibial plateau. Normal proximal tibiofibular articulation. Normal lateral collateral ( fibular ) ligament. Normal popliteus tendon. Normal biceps femoris tendon. There is edema with swelling and loss of definition of the of the ACL fascicles, producing a celery stick appearance, with preservation of the continuity of fibers, consistent with mucoid cystic degeneration. Normal posterior cruciate ligament (PCL). Normal congruent patellofemoral articulation. Normal hyaline cartilage of the patellofemoral compartment. Normal medial and lateral patellar retinaculum. Normal quadriceps tendon. Normal patellar tendon. Normal Hoffa''s fat pad. There is a small volume joint effusion. The soft tissues are unremarkable. The otherwise visualized osseous structures are unremarkable. 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 Small joint effusion. No meniscal tear Electronically Signed: Anthony Ballesteros MD at 23:11 EDT ,
--- OUTSIDE RECORDS SUMMARY | 2023-12-05 02:56 | XMS RPT_ITS | CCD ---
Author Name Unknown Address [address] [place] [address] Organization [facility] Care Team Providers Care Senior Software Project Manager Name Role Phone Deepika Portillo LPN Unavailable Unavailab Michelle Angel Unavailable Unavailable Deepika Portillo LPN Unavailable Unavailab Michael Jean-Baptiste Unavailable Medications Completed/Discontinued Medications Medication Drug Class(es) Dates Sig (Normalized) Sig (Original) amLODIPine 5 mg / benazepril hydrochloride 10 mg oral capsule (4 sources) Dihydropyridine Calcium Channel Miranda, Angiotensin Converting Enzyme Inhibitor Start: 03-17-2014 AMLODIPINE BESY-BENAZEPRIL HCL 5-10 MG CAPS daily AMLODIPINE BESY-BENAZEPRIL HCL 25311554057 Pierre Durbin aspirin 325 mg oral tablet (4 sources) Nonsteroidal Anti-inflammatory Drug Start: 03-17-2014 ASPIRIN 325 MG TABS daily ASPIRIN [id number] Pierre Durbin AZITHROMYCIN (8 sources) Macrolide Antimicrobial Start: 10-24-2016 ZITHROMAX Z-BLAISE 250 MG TABS per package instructions AZITHROMYCIN [id number] Marcelo ISLAS Problems Active Problems Problem Classification [...] 03-18-2014 Episodic Other skin disorders (2 sources) [place] of toe; Translations: [Corns and callosities] Onset: 06-29-2017 06-29-2017 Episodic Other upper respiratory infections (8 sources) Sinusitis; Translations: [Upper respiratory infection] Onset: 10-24-2016 10-24-2016 Episodic Results Test Name Value Interpretation Reference Range Facil ity Vital Signs Date Time Vital Sign Value Performing Clinician Leia espinoza 06-29-2017 16:07-0400 BMI (Body Mass Index) 37.32 kg/m2 Michael ISLAS [facility] Work Phone: 06-29-2017 16:07-0400 Body Temperature 97.6 [degF] Michael ISLAS [facility] Work Phone: 06-29-2017 16:07-0400 BP Diastolic 88 mm[Hg] Michael ISLAS [facility] Work Phone: 06-29-2017 16:07-0400 BP Systolic 122 mm[Hg] Michael ISLAS [facility] Work Phone: 06-29-2017 16:07-0400 Height 176.53 cm Michael ISLAS [facility] Work Phone: 06-29-2017 16:07-0400 Pulse (Heart Rate) 95 /min Michael ISLAS [facility] Work Phone: 06-29-2017 16:07-0400 Respiratory Rate 12 /min Michael ISLAS [facility] Work Phone: 06-29-2017 16:07-0400 Weight 116.3 kg Michael Wood ISLAS [facility] Work Phone: 06-20-2017 14:12-0400 BMI (Body Mass Index) 36.82 kg/m2 Deepika Portillo LPN [facility] Work Phone: 06-20-2017 14:12-0400 Body Temperature 97.4 [degF] Deepika Portillo LPN [facility] Work Phone: 06-20-2017 14:12-0400 BP Diastolic 72 mm[Hg] Deepika Portillo LPN [facility] Work Phone: 06-20-2017 14:12-0400 BP Systolic 118 mm[Hg] eDepika Portillo LPN [facility] Work Phone: 06-20-2017 14:12-0400 Height 176.53 cm Deepika Portillo LPN [facility] Work Phone: 06-20-2017 14:12-0400 Pulse (Heart Rate) 97 /min Deepika Portillo LPN [facility] Work Phone: 06-20-2017 14:12-0400 Respiratory Rate 15 /min Deepika Portillo LPN [facility] Work Phone: 06-20-2017 14:12-0400 Weight 114.76 kg Deepika Portillo LPN [facility] Work Phone: 10-24-2016 09:14-0500 BSA (Body Surface Area) 2.23 m2 Deepika Portillo LPN [facility] Work Phone: Procedures Date [...] Author Start: 06-29-2017 End: 06-29-2017 Appointment Appointment [facility] Work Phone: Start: 06-29-2017 End: 06-29-2017 Podiatry Referral Podiatry Referral [facility] Work Phone: Start: 06-20-2017 End: 06-20-2017 Appointment Appointment [facility] Work Phone: Patient Education [facility] Work Phone: Summary [...] BE BASED ON THE PRIMARY CLINICAL RECORDS. [facility] [employer] provides no warranty or guarantee of the accuracy or completeness of information in this document.
== END | disposition home or self-care (01) ==
LOC: MRI 16:15
PROVIDERS: PCP Family Medicine; Referring Provider Family Medicine; Visit Provider Family Medicine
DX: M25.562 Pain in left knee (principal)
CPT/HCPCS: 73721

== ENCOUNTER → 2024-04-23 | Outpatient (CLI) | payer OTHER, SELFPAY ==
--- NOTE | 2024-04-23 09:00 | RAD_ITS ---
STUDY: X-RAY - CERVICAL SPINE REASON FOR EXAM: Male, 48 years old. neck pain -- Please do upright AP lateral flexion-extension TECHNIQUE: 5 view(s) of the cervical spine were obtained. COMPARISON: 09/20/2023 FINDINGS: Normal anterior atlantoaxial articulation. Normal odontoid process. Normal cervical lordosis. No subluxation on the flexion or extension views to suggest instability. Status post anterior cervical discectomy and fusion from C5 through C7 with anatomic alignment. Normal disc space heights. Normal visualized intervertebral neuroforamina. The soft tissue structures are unremarkable. RAD/Cerv Spine 4 or 5 Views IMPRESSION: No change from 09/20/2023. Electronically Signed: Gene Carvalho MD at 9:38 EDT ,
== END | disposition home or self-care (01) ==
LOC: MTRAD 08:51
PROVIDERS: PCP Family Medicine; Referring Provider Orthopaedic Surgery Orthopaedic Surgery of the Spine; Visit Provider Orthopaedic Surgery Orthopaedic Surgery of the Spine
DX: M54.2 Cervicalgia (principal)
CPT/HCPCS: 72050

== ENCOUNTER → 2024-06-06 | Outpatient (CLI) | payer OTHER, SELFPAY ==
[2024-06-06 18:02] LABS: Absolute Lymphocyte Count 1.65 X10^3/uL (0.83-4.51); Absolute Neutrophil Count 5.1 X10^3/uL (2.0-7.7); Basophil# 0.05 X10^3/uL; Basophil% 0.7 % (0-1); Eosinophils% 1.3 % (0-5); Hematocrit 40.6 % (40-54); Hemoglobin 13.6 g/dL (13.0-16.5); Lymphocyte # 1.65 X10^3/ul (0.83-4.51); Lymphocyte % 21.9 % (19-41); Mean Corp Hgb Conc 33.5 g/dL (32-36); Mean Corpuscular Hgb 29.5 pg (27.0-32.0); Mean Corpuscular Volume 88.1 fL (80-94); Mean Platelet Vol. 9.7 fl (6.2-12.0); Monocyte# 0.63 X10^3/uL; Monocyte% 8.3 % (0-10); NRBC Flagged by Analyzer 0 % (0-5); Neutrophil # 5.09 X10^3/uL (2.7-7.7); Neutrophil % 67.4 % (47-70); Platelet Count 299 K/mm3 (150-450); RBC Distribution Width CV 12.2 % (11.6-14.6); RBC Distribution Width SD 39.5 fl (35.1-43.9); Red Blood Count 4.61 M/mm3 (4.6-6.2); White Blood Count 7.6 K/mm3 (4.4-11.0)
[2024-06-06 19:13] LABS: ALB/GLOB Ratio 0.9 RATIO (0.9-2.4); AST(SGOT) 27 U/L (15-37); Alanine Aminotransfer ALT/SGPT 33 U/L (16-61); Albumin, Serum 3.5 g/dL (3.2-5.0); Alkaline Phosphatase 83 U/L (45-117); Anion Gap 8 (5-15); BUN 27 mg/dL (7-18); BUN/Creat Ratio 21.3 RATIO (10-20); Calcium,Total 9.3 mg/dL (8.5-10.1); Chloride 107 mmol/L (98-107); Cholesterol 190 mg/dL (200); Creatinine, Serum 1.27 mg/dL (0.70-1.30); EST Glomerular Filtration Rate 64 mL/min (>60); Est Glom Filt Rate - Afr Amer 78 mL/min (>60); Globulin 3.9 g/dL (2.2-4.2); Glucose 104 mg/dL (74-106); High Density Lipoprotein 68 mg/dL; PSA,Total- Diagnostic 2.11 ng/mL (0.0-4.0); Potassium 4.3 mmol/L (3.5-5.1); Protein, Total 7.4 g/dL (6.4-8.2); Sodium Level 140 mmol/L (136-145); Triglycerides 148 mg/dL; Uric Acid 6.4 mg/dL (3.5-7.2); Very Low Density Lipoprotein 30 mg/dL (5-40)
[2024-06-14 17:07] LABS: Testosterone, % Free 2.33 % (1.50-4.20); Testosterone, Free 9.16 ng/dL (5.00-21.00); Testosterone, Total 393 ng/dL (264-916)
== END | disposition home or self-care (01) ==
LOC: MFPLAB 16:33
PROVIDERS: PCP Family Medicine; Visit Provider Family Medicine
DX: E11.9 Type 2 diabetes mellitus without complications (principal); E29.1 Testicular hypofunction; M25.529 Pain in unspecified elbow
CPT/HCPCS: 36415; 80053; 80061; 82043; 84153; 84402; 84403; 84550; 85025

== ENCOUNTER → 2024-11-14 | Outpatient (CLI) | payer OTHER, SELFPAY ==
[2024-11-14 17:41] LABS: Basophil# 0.05 X10^3/uL; Basophil% 0.8 % (0-1); Eosinophil# 0.08 X10^3/uL; Eosinophils% 1.3 % (0-5); Hemoglobin 13.6 g/dL (13.0-16.5); Lymphocyte % 25.7 % (19-41); Mean Corp Hgb Conc 33.2 g/dL (32-36); Mean Corpuscular Hgb 29.7 pg (27.0-32.0); Mean Corpuscular Volume 89.5 fL (80-94); Monocyte# 0.53 X10^3/uL; Monocyte% 8.5 % (0-10); NRBC Flagged by Analyzer 0 % (0-5); Neutrophil # 3.95 X10^3/uL (2.7-7.7); Neutrophil % 63.5 % (47-70); Platelet Count 240 K/mm3 (150-450); RBC Distribution Width CV 12.8 % (11.6-14.6); RBC Distribution Width SD 42.1 fl (35.1-43.9); Red Blood Count 4.58 M/mm3 (4.6-6.2); White Blood Count 6.2 K/mm3 (4.4-11.0)
== END | disposition home or self-care (01) ==
LOC: MFPLAB 16:43
PROVIDERS: PCP Family Medicine; Referring Provider Family Medicine; Visit Provider Family Medicine
DX: E29.1 Testicular hypofunction (principal)
CPT/HCPCS: 36415; 84403; 85025

== ENCOUNTER → 2025-04-03 | Outpatient (CLI) | payer OTHER, SELFPAY ==
[2025-04-03 17:48] LABS: Hematocrit 39.5 % (40-54); Hemoglobin 13.7 g/dL (13.0-16.5); Immature Granulocytes Count 0.020 X10^3/uL (0.0-0.0); Mean Corp Hgb Conc 34.7 g/dL (32-36); Mean Corpuscular Volume 87.6 fL (80-94); Mean Platelet Vol. 9.9 fl (6.2-12.0); NRBC Flagged by Analyzer 0 % (0-5); Platelet Count 207 K/mm3 (150-450); RBC Distribution Width CV 12.6 % (11.6-14.6); RBC Distribution Width SD 40.5 fl (35.1-43.9); Red Blood Count 4.51 M/mm3 (4.6-6.2); White Blood Count 5.8 K/mm3 (4.4-11.0)
[2025-04-03 18:11] LABS: AST(SGOT) 31 U/L (<=37); Alanine Aminotransfer ALT/SGPT 23 U/L (<=46); Albumin, Serum 4.3 g/dL (3.5-5.0); Alkaline Phosphatase 65 U/L (40-129); Anion Gap 12 (5-15); BUN 22 mg/dL (4-19); BUN/Creat Ratio 20.7 RATIO (10-20); Calcium,Total 9.4 mg/dL (7.6-11.0); Carbon Dioxide 25.4 mmol/L (21.0-32.0); Chloride 104 mmol/L (98-108); Cholesterol 205 mg/dL (<=200); Globulin 3.0 g/dL (2.2-4.2); Glucose 62 mg/dL (70-99); Low Density Lipoprotein Calc. 117 mg/dL; Potassium 4.3 mmol/L (3.3-5.1); Triglycerides 65 mg/dL; Very Low Density Lipoprotein 13 mg/dL (5-40); cholesterol:hdl ratio screen 2.74
--- OUTSIDE RECORDS SUMMARY | 2025-04-03 20:35 | XMS RPT_ITS | CCD ---
Author Organization [facility] Care Team Providers Care Hand Former Helper Name Role Phone Deepika Portillo LPN Unavailable Unavailab Michelle Angel Unavailable Unavailable Deepika Portillo LPN Unavailable Unavailab Michael Jean-Baptiste Unavailable Isis, Dr. Godoy Primary Care Provider Isis, Dr. Godoy Referring Provider JANEL Saavedra Attending Provider Isis, Dr. Godoy Primary Care Provider Isis, Dr. Godoy Referring Provider [phone] Garrett Paz Attending Provider [phone] Dr. Manjeet Dahl Attending Provider [phone] Isis, Dr. Godoy Primary Care Provider Isis, Dr. Godoy Referring Provider [phone] Garrett Paz Attending Provider [phone] Dr. Manjeet Dahl Attending Provider [phone] Manjeet Dahl Referring Provider [phone] [place], Dr. Burroughs Other Provider Davidson Sanchez Attending Unavailable Walt Marinelli Primary Care Unavailable Marcelo Paz Attending Unavailable Marcelo Saavedra Attending Unavailable Walt Marinelli Primary Care Unavailable Walt Marinelli Referring Unavailable Walt Marinelli Primary Care Unavailable Marcelo Paz Attending Unavailable Garrett Paz Attending Unavailable Walt Marinelli Referring Unavailable Isis, Walt Primary Care Unavailable Marcelo Paz Attending Unavailable Walt Marinelli Primary Care Unavailable aWlt Marinelli Primary Care Unavailable Davidson Sanchez Attending Unavailable Davidson Sanchez Referring Unavailable Walt Marinelli Primary Care Unavailable Isis, Walt Attending Unavailable Isis, Walt Attending Unavailable Isis, Walt Referring Unavailable Walt Marinelli Primary Care Unavailable Mae Bernardo Attending Unavailable Isis, Walt Referring Unavailable Isis, Walt Referring Unavailable Isis, Walt Primary Care Unavailable Mitul Silvestre Attending Unavailable Medications Current Medications Medication Drug Class(es) Dates Sig (Normalized) Sig (Original) 12 hr buPROPion hydrochloride 150 mg extended release oral tablet (20 sources) Aminoketone Start: 03-08-2018 End: 01-16-2020 take 300 mg by mouth once daily Bupropion Hcl Active 300 MG PO DAILY January 16, 2020 2:36pm Start: 03-08-2018 End: 01-16-2020 take 150 mg by mouth once daily Bupropion Hcl Discontinued 150 MG PO DAILY March 07, 2018 11:00pm January 16, 2020 2:36pm Start: 03-17-2014 BUPROPION HCL ER (SR) 150 MG [id number] daily BUPROPION HCL [id number] Pierre Durbin Start: 03-17-2014 BUPROPION HCL ER (XL) 300 MG [id number] daily BUPROPION HCL [id number] Pierre Durbin busPIRone hydrochloride 7.5 mg oral tablet (2 sources) Start: 05-09-2022 take 7.5 mg by mouth twice daily Buspirone Active 7.5 MG PO TWICE A DAY May 08, 2022 11:00pm cholecalciferol 0.025 mg oral capsule (6 sources) Vitamin D Start: 03-08-2018 take 5000 [IU] by mouth once daily Cholecalciferol (Vitamin D3) Active 5000 UNIT PO DAILY March 07, 2018 11:00pm citalopram 20 mg oral tablet (10 sources) Serotonin Reuptake Inhibitor Start: 03-08-2018 take 40 mg by mouth once daily Citalopram Active 40 MG PO DAILY March 07, 2018 11:00pm Start: 03-17-2014 CITALOPRAM HYD ROBROMIDE 40 MG TABS daily CITALOPRAM HYDROBROMIDE [id number] Pierre Durbin glucagon 3 mg nasal powder (6 sources) Antihypoglycemic Agent Start: 01-16-2020 Glucago n (Baqsimi) 3 mg/actuation spray,non-aerosol Active 3 MG INTRANASAL ONCE 2 January 15, 2020 11:00pm as a single dose insulin aspart, human 100 unt/ml injectable solution (6 sources) Insulin Analog Start: 03-08-2018 Insulin Aspart U-100 Active 1.55 UNIT CONT INF Continuous March 07, 2018 11:00pm insulin pump 3 ml insulin lispro 100 unt/ml cartridge (9 sources) Insulin Analogue Start: 02-09-2021 Insulin Lispr o (Humalog U-100 Insulin) 100 unit/mL Cartridge Active 4 UNIT SC THREE TIMES A DAY February 09, 2021 12:00am Start: 03-17-2014 HUMALOG SOLN a s directed INSULIN LISPRO (HUMAN) SOLN [id number] Pierre Durbin Start: 03-17-2014 HUMALOG SOLN a s directed INSULIN LISPRO (HUMAN) SOLN [id number] Pierre Durbin lisinopril 5 mg oral tablet (1 source) Angiotensin Converting Enzyme Inhibitor Start: 08-01-2022 take 5 mg by mouth once daily Lisinopril Active 5 MG PO DAILY August 01, 2022 12:00am Multivitamin preparation (6 sources) Start: 03-08-2018 Multivitamin A ctive 1 EACH PO DAILY March 08, 2018 11:34am Start: 03-08-2018 Multivitamin A ctive 1 EACH PO DAILY March 07, 2018 11:00pm Start: 03-08-2018 Multivitamin A ctive 1 EACH PO DAILY March 08, 2018 12:00am 1 ml testosterone cypionate 200 mg/ml injection (12 sources) Androgen Start: 01-16-2020 inject 100 mg by intramuscular injection every other week Testosterone Cypionate (Depo-Testosterone) 200 mg/mL oil Active 100 MG IM every 2 weeks 1 January 15, 2020 11:00pm Start: 10-13-2018 End: 01-16-2020 Testosterone Discontinued Panfilo martel 2018 9:08pm January 16, 2020 3:37pm injection every other week Start: 10-13-2018 End: 01-16-2020 Testosterone Discontinued Panfilo martel 2018 12:00am January 16, 2020 2:37pm injection every other week Start: 10-13-2018 End: 01-16-2020 Testosterone Discontinued Panfilo martel 2018 1:00am January 16, 2020 3:37pm injection every other week Vitamin B Complex (B Complex-Vitamin B12) tablet (2 sources) Start: 06-07-2022 take 1 tablet by mouth once daily Vitamin B Complex (B Complex-Vitamin B12) tablet Active 1 TABLET PO DAILY June 06, 2022 11:00pm Start: 06-07-2022 take 1 tablet by caitlyn th once daily Vitamin B Complex (B Complex-Vitamin B12) tablet Active 1 TABLET PO DAILY June 07, 2022 12:00am Completed/Discontinued Medications Medication Drug Class(es) Dates Sig (Normalized) Sig (Original) acetaminophen 325 mg / HYDROcodone bitartrate 5 mg oral tablet (5 sources) Opioid Agonist Start: 03-18-2022 End: 05-09-2022 take 1 tablet by mouth every six hours Hydrocodone-Aceta minophen Discontinued 1 TABLET PO EVERY 6 HOURS 10 3 March 18, 2022 May 09, 2022 2:54pm amLODIPine 5 mg / benazepril hydrochloride 10 mg oral capsule (4 sources) Dihydropyridine Calcium Channel Miranda, Angiotensin Converting Enzyme Inhibitor Start: 03-17-2014 AMLODIPINE BESY-BENAZEPRIL HCL 5-10 MG CAPS daily AMLODIPINE BESY-BENAZEPRIL HCL [id number] Pierre Durbin aspirin 325 mg oral tablet (10 sources) Nonsteroidal Anti-inflammatory Drug Start: 03-08-2018 End: 01-16-2020 take 325 mg by mouth once daily Aspirin Discontinued 325 MG PO DAILY@0800 March 07, 2018 11:00pm January 16, 2020 2:35pm Start: 03-17-2014 ASPIRIN 325 MG TABS daily ASPIRIN [id number] Pierre Durbin AZITHROMYCIN (8 sources) Macrolide Antimicrobial Start: 10-24-2016 ZITHRO MAX Z-BLAISE 250 MG TABS per package instructions AZITHROMYCIN [id number] Marcelo ISLAS Start: 10-24-2016 End: 06-20-2017 ZITHROMAX Z-BLAISE 250 MG TABS per package instructions AZITHROMYCIN [id number] Deepika Portillo LPN Start: 10-24-2016 End: 06-20-2017 ZITHROMAX Z-BLAISE 250 MG TABS per package instructions AZITHROMYCIN [id number] Mracelo ISLAS celecoxib 200 mg oral capsule (4 sources) Nonsteroidal Anti-inflammatory Drug Start: 03-17-2014 CELEBREX 200 MG CAPS daily CELECOXIB [id number] Pierre Durbin 0.5 ml dulaglutide 3 mg/ml auto-injector (10 sources) GLP-1 Receptor Agonist Start: 10-13-2018 End: 01-16-2020 inject 1.5 mg by subcutaneous injection every week Dulaglutide Discontinued 1.5 MG SQ EVERY WEEK October 13, 2018 12:00am January 16, 2020 1:48pm Start: 10-24-2016 TRULICITY SOPN once weekly DULAGLUTIDE SOPN [id number] Amy Luna LPN Start: 10-24-2016 TRULICITY SOPN once weekly DULAGLUTIDE SOPN [id number] Amy Luna LPN LIRAGLUTIDE SOPN (8 sources) GLP-1 Receptor Agonist Start: 03-17-2014 VICTOZA SOPN 1.2 mg injection daily LIRAGLUTIDE SOPN [id number] Pierre Durbin Start: 03-17-2014 End: 10-24-2016 VICTOZA SOPN 1.2 mg injectio n daily LIRAGLUTIDE SOPN [id number] Amy Luna LPN Start: 03-17-2014 VICTOZA SOPN 1 .2 mg injection daily LIRAGLUTIDE SOPN [id number] Pierre Durbin Start: 03-17-2014 End: 10-24-2016 VICTOZA SOPN 1.2 mg injectio n daily LIRAGLUTIDE SOPN [id number] Amy Luna LPN metFORMIN hydrochloride 500 mg oral tablet (6 sources) Biguanide Start: 03-08-2018 End: 01-16-2020 take 500 mg by mouth twice daily at mealtime Metformin Discontinued 500 MG PO TWICE DAILY WITH MEALS March 07, 2018 11:00pm January 16, 2020 1:48pm omeprazole 20 mg delayed release oral capsule (6 sources) Proton Pump Inhibitor Start: 03-08-2018 End: 01-16-2020 take 20 mg by mouth once daily Omeprazole Discontinued 20 MG PO DAILY March 07, 2018 11:00pm January 16, 2020 2:36pm ondansetron 4 mg disintegrating oral tablet (5 sources) Serotonin-3 Receptor Antagonist Start: 03-18-2022 End: 05-09-2022 take 4 mg by mouth every eight hours Ondansetron Discontinued 4 MG PO Q8H March 17, 2022 11:00pm May 09, 2022 2:54pm tamsulosin hydrochloride 0.4 mg oral capsule (5 sources) alpha-Adrenergic Miranda Start: 03-18-2022 End: 05-09-2022 take 1 capsule by mouth once daily Tamsulosin (Flomax) 0.4 mg capsule Discontinued 0.4 MG PO DAILY March 17, 2022 11:00pm May 09, 2022 2:54pm CHOLECALCIFEROL TABS (4 sources) Start: 03-17-2014 VITAMIN D TABS 5000 units daily CHOLECALCIFEROL TABS [id number] Pierre Durbin Start: 03-17-2014 VITAMIN D TABS 5000 units daily CHOLECALCIFEROL TABS [id number] Pierre Durbin Problems Active Problems Problem Classification Problem Date Documented Date Episodic/Chronic Anxiety disorders (1 source) Generalized anxiety disorder; Translations: [Generalized anxiety disorder] Onset: 02-03-2025 Chronic Calculus of urinary tract (5 sources) Ureteric stone; Translations: [Calculus of ureter] Episodic Diabetes mellitus with complications (1 source) Type 1 diabetes mellitus with hyperglycemia; Translations: [Type 1 diabetes mellitus with hyperglycemia] Onset: 10-11-2024 Chronic Diabetes mellitus without complication (20 sources) Diabetes mellitus; Translations: [Type 2 diabetes mellitus without complications] Onset: 06-29-2024 Chronic Diabetes mellitus without complication (8 sources) Insulin pump present; Translations: [Presence of insulin pump (external) (internal)] Episodic Disorders of lipid metabolism (6 sources) Dyslipidemia; Translations: [Hyperlipidemia, unspecified] Chronic Headache; including migraine (6 sources) Headache; Translations: [Severe headache] Episodic Immunizations and screening for infectious disease (16 sources) Patient encounter status; Translations: [Encounter for screening for COVID-19] Episodic Malaise and fatigue (6 sources) Tired; Translations: [Other fatigue] Episodic Mood disorders (6 sources) Depressive disorder; Translations: [Depression with suicidal ideation] Chronic Open wounds of extremities (6 sources) Avulsion of toenail; Translations: [Unspecified open wound of unspecified toe(s) with damage to nail, initial encounter] Episodic Other connective tissue disease (6 sources) Muscle pain; Translations: [Myalgia, unspecified site] Episodic Other endocrine disorders (6 sources) Male hypogonadism; Translations: [Testicular hypofunction] Chronic Other endocrine disorders (1 source) Testicular hypofunction; Translations: [Testicular hypofunction] Onset: 11-27-2024 Chronic Other non-traumatic joint disorders (6 sources) Joint pain; Translations: [Pain in unspecified joint] Episodic Other nutritional; endocrine; and metabolic disorders (4 sources) Body mass index 30+ - obesity; Translations: [Obesity, unspecified] Chronic Residual codes; unclassified (6 sources) Obstructive sleep apnea syndrome; Translations: [Obstructive sleep apnea (adult) (pediatric)] Chronic Spondylosis; intervertebral disc disorders; other back problems (14 sources) Displacement of cervical intervertebral disc without myelopathy; Translations: [Other cervical disc displacement at C6-C7 level] Chronic Unclassified (3 sources) Encounter for check-up; Translations: [Encounter for general adult medical examination [...] 03-18-2014 Episodic Other skin disorders (2 sources) [place] of toe; Translations: [Corns and callosities] Onset: 06-29-2017 06-29-2017 Episodic Other upper respiratory infections (8 sources) Sinusitis; Translations: [Upper respiratory infection] Onset: 10-24-2016 10-24-2016 Episodic Spondylosis; intervertebral disc disorders; other back problems (1 source) Cervicalgia; Translations: [Cervicalgia] Onset: 05-18-2024 Episodic Results Test Name Value Interpretation Reference Range Facility MR/BMSMichaelBPon 02-03-2025 MR/BMS.BP [address], [address] [place] [address] OFFICE VISIT Date of Service: 02/03/25 MR#: [id number] Acct: [id number] Name: PAULINA WOOD Rep #: [id number] : 1975 Provider: Dr. Marcelo Butler se, DO Age/Sex: 49/M Location: [facility] Status: Signed Intake Vital Signs 08/05/24 16:04 10/10/24 15:39 02/03/25 16:19 02/03/25 16:20 Height 5 ft 9 in 5 ft 9 in 5 ft 9 in 5 ft 9 in Weight: 222 lb 226 lb 8 oz BMI 32.8 33.4 BP 158/93 H 160/93 H Blood Pressure Location Rt brachial Lt brachial Position Sitting Sitting Respiration 16 Pulse 98 89 Pulse Source Monitor Monitor Pulse Oximetry (%) 95 Oxygen Delivery Method room air BP Intake Visit Reasons: 6 M FU Allergies No Known Allergies Allergy (Verified 02/03/25 16:21) Medications ???Medication ???Instructions ???Recorded ???Confirmed ???Type cholecalciferol (vitamin D3) 25 5,000 unit PO DAILY 03/08/1802/03 History mcg (1,000 unit) capsule insulin aspart U-100 100 unit/mL 1.55 unit continuous IV infusion 0 03/08/18 02/03/25 History subcutaneous solution CONT glucagon 3 mg/actuation nasal 3 mg intranasal ONCE #2 ea 0 02/03/25 Rx spray (Baqsimi) testosterone cypionate 200 mg/mL 100 mg (0.5 mL) IM Q2W #1 mL 01/1502/03/25 Rx intramuscular oil (Depo-Testosterone) lisinopril 5 mg tablet 5 mg PO DAILY 08/01/22 02/03/25 Hi story calcium 600 mg (as carbonate)-vit 1 tab PO DAILY 08/22/22 02/03/25 History D3 10 mcg (400 unit) chewable tablet (Calcium 600 with Vitamin D3) rosuvastatin 5 mg tablet (Crestor) 5 mg PO DAILY 09/04/23 02/03/25 History gabapentin 300 mg capsule 300 mg PO QDAY 10/10/24 02/03/25 H istory bupropion HCl 150 mg tablet,12 hr 150 mg PO BID 90 days #180 TABLET S 02/03/25 02/03/25 Rx sustained-release buspirone 15 mg tablet See Rx Instructions .Route 5 02/03/25 Rx .COMPLEX #180 tabs fluoxetine 40 mg capsule 40 mg PO DAILY #90 caps 02/03/25 0 02/03/25 Rx PFSH Medical History Left knee pain Swelling of left elbow MDD (major depressive disorder) Obesity Diabetes mellitus type 1 GÓMEZ (generalized anxiety disorder) Wears contact lenses Wears glasses Cancer Alcohol use Insulin dependent diabetes mellitus Dietary restriction Non-smoker Encounter for screening for COVID-19 Anxiety Depression Severe headache Myalgia Arthralgia Dyslipidemia Surgical History H/O spinal fusion History of Mikael-en-Y gastric bypass Family History Mother Hypertension Anxiety Father Diabetes Sister Anxiety Social History Smoking Status: Never smoker alcohol intake: current alcohol intake frequency: a few times a month Alcohol type: beer substance use type: does not use HPI History of Present Illness History provided by: patient HPI: Paulina Wood is a 49 year old male who presents today for follow up evaluation. Patient has been doing really good. Feels like medications are working largely well. Denies any significant side e ffects from medications. Work has been largely good. Appetite has been fairly stable. Feels like he has had some decrease in palpitations. Denies SI/HI or AVH. Review of Systems Constitutional Denies: fever(s), chills, change in weight or fatigue Eyes Denies: change in vision or blurry vision Ears, Nose, Mouth, Throat Denies: throat pain, neck pain or change in hearing Cardiovascular Reports: palpitations; Denies: chest pain or dyspnea Respiratory Denies: dyspnea, cough or wheezing Gastrointestinal Denies: abdominal pain, nausea, vomiting, diarrhea or constipation Genitourinary Denies: dysuria or urinary frequency Musculoskeletal Denies: back pain, neck pain, joint pain or muscle weakness Integumentary/Breast Denies: rash or new lesions Neurological Reports: numbness in extremities and weakness in extremities; Denies: headache(s), dizziness or confusion Endocrine Denies: fatigue or excessive sweating Hematologic/Lymphati c Denies: easy bruising or easy bleeding Allergic/Immunologic Denies: wheezing Exam Mental Status Exam - Psych Appearance casually dressed and no apparent distress Attitude cooperative and calm Activity/Motor Behavior MSE activity/motor behavior finding no adventitious movements Speech regular rate, regular volume and regular prosody Mood OK Affect congruent Thought Process linear, logical and coherent Thought Content no delusions and no hallucinations Suicidal Ideation none Homicidal Ideation none Attention intact Concentration intact Sen (more content not included)... Normal CBC W/Diff, Automatedon - Absolute Lymph 1.60 X10 3/uL Normal 0.83-4.51 Comment on above: Performed By: #### L 509.3000, L100.0100 #### Laboratory [address] [place], [address] Absolute Neut 4.0 X10 3/uL Normal 2.0-7.7 Comment on above: Performed By: #### L 509.3000, L100.0100 #### [facility] [address] [place], [address] Basophils/100 WBC (Bld) 0.8 % Normal 0-1 Comment on above: Performed By: #### L 509.3000, L100.0100 #### [facility] [address] [place], [address] Eosinophils/100 WBC (Bld) 1.3 % Normal 0-5 Comment on above: Performed By: #### L 509.3000, L100.0100 #### [facility] [address] [place], [address] Erythrocyte distribution width (RBC) [Ratio] 12.8 % Normal 11.6-14.6 Comment on above: Performed By: #### L 509.3000, L100.0100 #### [facility] [address] [place], [address] Hematocrit (Bld) [Volume fraction] 41.0 % Normal 40-54 Comment on above: Performed By: #### L 509.3000, L100.0100 #### [facility] [address] [place], [address] Hemoglobin (Bld) [Mass/Vol] 13.6 g/dL Normal 13.0-16.5 Comment on above: Performed By: #### L 509.3000, L100.0100 #### [facility] [address] [place], [address] IG% 0.200 Normal 0.0-0.9 Comment on above: Result Comment: IG% - Immature Granulocytes (promyelocytes, myelocytes and metamyelocytes) > 1% indicates that a LEFT SHIFT is Present. Performed By: #### L 509.3000, L100.0100 #### [facility] [address] [place], [address] Lymphocytes/100 WBC (Bld) 25.7 % Normal 19-41 Comment on above: Performed By: #### L 509.3000, L100.0100 #### [facility] [address] [place], [address] MCH (RBC) [Entitic mass] 29.7 pg Normal 27.0-32.0 Comment on above: Performed By: #### L 509.3000, L100.0100 #### [facility] [address] [place], [address] MCHC (RBC) [Mass/Vol] 33.2 g/dL Normal 32-36 [facility] Comment on above: Performed By: #### L 509.3000, L100.0100 #### [facility] [address] [place], [address] MCV (RBC) [Entitic vol] 89.5 fL Normal 80-94 Comment on above: Performed By: #### L 509.3000, L100.0100 #### [facility] [address] [place], [address] Monocytes/100 WBC (Bld) 8.5 % Normal 0-10 Comment on above: Performed By: #### L 509.3000, L100.0100 #### [facility] [address] [place], [address] Neutrophils/100 WBC (Bld) 63.5 % Normal 47-70 Comment on above: Performed By: #### L 509.3000, L100.0100 #### [facility] [address] [place], [address] Nucleated RBC (Bld) [#/Vol] 0 10*3/uL Normal 0-5 Comment on above: Performed By: #### L 509.3000, L100.0100 #### [facility] [address] [place], [address] Platelet mean volume (Bld) [Entitic vol] 10.0 fL Normal 6.2-12.0 Comment on above: Performed By: #### L 509.3000, L100.0100 #### [facility] [address] [place], [address] Platelets (Bld) [#/Vol] 240 10*3/uL Normal 150-450 Comment on above: Performed By: #### L 509.3000, L100.0100 #### [facility] [address] [place], [address] RBC (Bld) [#/Vol] 4.58 10*6/uL Low 4.6-6.2 [facility] Comment on above: Performed By: #### L 509.3000, L100.0100 #### [facility] [address] [place], [address] RDW SD 42.1 fl Normal 35.1-43.9 Comment on above: Performed By: #### L 509.3000, L100.0100 #### [facility] [address] [place], [address] WBC (Bld) [#/Vol] 6.2 10*3/uL Normal 4.4-11.0 [facility] Comment on above: Performed By: #### L 509.3000, L100.0100 #### Laboratory [address] [place], [address] Testosterone, Serum Totalon 11-14-2024 Testosterone [Mass/Vol] 306.41 ng/dL Normal Comment on above: Result Comment: CENT RAL 90% REFERENCE RANGES MALE AGE <50 197.44 - 669.58 ng/dL MALE AGE > or = 50 187.72 - 684.19 ng/dL FEMALE AGE <50 8.38 - 35.01 ng/dL FEMALE AGE > or = 50 <7.00 - 35.92 ng/dL Effective as of 04/19/21 Performed By: #### L 509.3000, L100.0100 #### [facility] [address] [place], [address] Endocrinology Visit Reporton 10-10-2024 Endocrinology Visit Report [facility] [address] [place] [address] OFFICE VISIT Date of Service: 10/10/24 MR#: [id number] Acct: [id number] Name: PAULINA WOOD Rep #: [id number] : 1975 Provider: Darwin Uriarte Age/Sex: 49/M Location: [facility] Status: Signed Intake Vital Signs 04/07/24 14:45 08/05/24 16:04 10/10/24 15:39 Height 5 ft 9 in 5 ft 9 in 5 ft 9 in Weight: 226 lb 8 oz BMI 33.4 BP 158/93 H Blood Pressure Location Rt brachial Position Sitting Pulse 98 Pulse Source Monitor Pulse Oximetry (%) 95 Oxygen Delivery Method room air Intake Visit Reasons: 6 M FU Chief Complaint: Diabetes Is patient in pain?: No Allergies No Known Allergies Allergy (Verified 10/10/24 15:43) Medications ???Medication ???Instructions ???Recorded ???Confirmed ???Type cholecalciferol (vitamin D3) 25 5,000 unit PO DAILY 03/08/18 10/10/24 History mcg (1,000 unit) capsule insulin aspart U-100 100 unit/mL 1.55 unit continuous IV infusion 03/08/18 10/10/24 History subcutaneous solution CONT glucagon 3 mg/actuation nasal 3 mg intranasal ONCE #2 ea 01/16/20 10/10/24 Rx spray (Baqsimi) testosterone cypionate 200 mg/mL 100 mg (0.5 mL) IM Q2W #1 mL 01/16/20 10/10/24 Rx intramuscular oil (Depo-Testosterone) lisinopril 5 mg tablet 5 mg PO DAILY 08/01/22 10/10/24 History calcium 600 mg (as carbonate)-vit 1 tab PO DAILY 08/22/22 10/10/24 History D3 10 mcg (400 unit) chewable tablet (Calcium 600 with Vitamin D3) rosuvastatin 5 mg tablet (Crestor) 5 mg PO DAILY 09/04/23 10/10/24 History bupropion HCl 150 mg tablet,12 hr See Rx Instructions .Route 08/05/24 10/10/24 Rx sustained-release .COMPLEX #60 TABLETS buspirone 15 mg tablet See Rx Instructions .Route 08/05/24 10/10/24 Rx .COMPLEX #180 tabs fluoxetine 40 mg capsule 40 mg PO DAILY #30 caps 10/01/24 10/10/24 Rx gabapentin 300 mg capsule 300 mg PO QDAY 10/10/24 10/10/24 History PFSH Medical History Left knee pain Swelling of left elbow MDD (major depressive disorder) Obesity Diabetes mellitus type 1 GÓMEZ (generalized anxiety disorder) Wears contact lenses Wears glasses Cancer Alcohol use Insulin dependent diabetes mellitus Dietary restriction Non-smoker Encounter for screening for COVID-19 Anxiety Depression Severe headache Myalgia Arthralgia Dyslipidemia Surgical History H/O spinal fusion History of Mikael-en-Y gastric bypass Family History Mother Hypertension Anxiety Father Diabetes Sister Anxiety Social History Smoking Status: Never smoker alcohol intake: current alcohol intake frequency: a few times a month Alcohol type: beer substance use type: does not use HPI HPI Chief Complaint: Diabetes Details: PAULINA WOOD, is a 49 M who presents to the office today for follow up. A1C is 7.7% He is using Medtronic 780G insulin pump with Guardian CGM and auto mode. Upload shows under reporting of carbs. He has been having palpitations and will be wearing a monitor in the future. Blood pressure is high and he is working on that with Dr. Marinelli. He is on PAUL and testosterone. ROS Const Constitutional: No fatigue or weight change ENT ENT: No dizziness/vertigo Cardio Cardiology: No chest pain at rest, chest pain with exertion, shortness of breath or palpitations Skin Skin: No wounds Endo Endocrine: No fatigue or weight change Exam Const General: cooperative, healthy appearing, comfortable, no acute distress, well developed and not cushingoid Nutritional Appearance: well nourished Orientation: alert, awake and oriented x3 HENMT Head: normal to inspection Ears: hearing grossly normal bilaterally Nose: external nose normal Mouth: oral mucosae normal Eyes General: appearance normal, both eyes and all related structures Alignment and Position: alignment normal Periorbital: periorbital findings normal Eyelids: eyelids normal Conjunctivae: conjunctivae normal Neck Neck: normal visual inspection Neck mass: No Thyroid: thyroid normal Lymphatic: no lymphadenopathy noted Chest Chest palpation inspection: normal inspection of the chest Resp Effort Inspection: normal respiratory effort, able to speak in complete sentences, symmetric chest movement, no audible wheezes and no cough Cardio Rate: regular rate Rhythm: regular rhythm Skin General: no rashes or lesions noted Neuro General: patient alert, patient awake and patient oriented x3 Cranial Nerves: CN's II-XI intact bilaterally Cognition: normal cognition Speech: (more content not included)... Normal MR/BMS.BPon 08-05-2024 MR/BMS.BP [facility] [address], [address] [place] [address] OFFICE VISIT Date of Service: 08/05/24 MR#: [id number] Acct: [id number] Name: PAULINA WOOD Rep #: [id number] : 1975 Provider: Dr. Marcelo Butler se, Age/Sex: 49/M Location: [facility] Status: Signed Intake Vital Signs 04/28/24 16:18 05/27/24 14:21 08/05/24 16:04 Height 5 ft 9 in 5 ft 9 in 5 ft 9 in Weight: 222 lb BMI 32.8 BP Intake Visit Reasons: 3 M FU Allergies No Known Allergies Allergy (Verified 05/27/24 14:22) Medications ???Medication ???Instructions ???Recorded ???Confirmed ???Type cholecalciferol (vitamin D3) 25 5,000 unit PO DAILY 03/08/18 08/05/24 History mcg (1,000 unit) capsule insulin aspart U-100 100 unit/mL 1.55 unit continuous IV infusion 03/08/18 08/05/24 History subcutaneous solution CONT glucagon 3 mg/actuation nasal 3 mg intranasal ONCE #2 ea 01/16/20 08/05/24 Rx spray (Baqsimi) testosterone cypionate 200 mg/mL 100 mg (0.5 mL) IM Q2W #1 mL 01/16/20 08/05/24 Rx intramuscular oil (Depo-Testosterone) lisinopril 5 mg tablet 5 mg PO DAILY 08/01/22 08/05/24 History calcium 600 mg (as carbonate)-vit 1 tab PO DAILY 08/22/22 08/05/24 History D3 10 mcg (400 unit) chewable tablet (Calcium 600 with Vitamin D3) rosuvastatin 5 mg tablet (Crestor) 5 mg PO DAILY 09/04/23 08/05/24 History indomethacin 50 mg capsule 50 mg PO TID #30 caps 05/27/24 08/05/24 Rx bupropion HCl 150 mg tablet,12 hr See Rx Instructions .Route 08/05/24 08/05/24 Rx sustained-release .COMPLEX #60 TABLETS buspirone 15 mg tablet See Rx Instructions .Route 08/05/24 08/05/24 Rx .COMPLEX #180 tabs fluoxetine 20 mg capsule 20 mg PO DAILY #30 caps 08/05/24 08/05/24 Rx PFSH Medical History (Updated 05/27/24 @ 14:32 by Marcelo ISLAS, PA) Swelling of left elbow MDD (major depressive disorder) Obesity Diabetes mellitus type 1 GÓMEZ (generalized anxiety disorder) Wears contact lenses Wears glasses Cancer Alcohol use Insulin dependent diabetes mellitus Dietary restriction Non-smoker Encounter for screening for COVID-19 Anxiety Depression Severe headache Myalgia Arthralgia Dyslipidemia Surgical History H/O spinal fusion History of Mikael-en-Y gastric bypass Family History Mother Hypertension Anxiety Father Diabetes Sister Anxiety Social History Smoking Status: Never smoker alcohol intake: current alcohol intake frequency: a few times a month Alcohol type: beer substance use type: does not use HPI History of Present Illness History provided by: patient Chief complaint: depression HPI: Paulina Wood is a 49 year old male who presents today for follow up evaluation. Patient reports that he has been feeling better. Does feel like he is more easily able to feel happy. Work has remained largely stable. Feels like transition to fluoxetine went well and has had not significant side effects. Sleep has been doing largley well. Appetite is maybe mildly reduced but no significant side effects. Does have concern that he may Afib but has been following with PCP regarding this. Does have some persistent scapular pain and left knee pain. Denies SI/HI or AVH. Review of Systems Constitutional Denies: fever(s), chills, change in weight or fatigue Eyes Denies: change in vision or blurry vision Ears, Nose, Mouth, Throat Denies: throat pain, neck pain or change in hearing Cardiovascular Reports: palpitations; Denies: chest pain or dyspnea Respiratory Denies: dyspnea, cough or wheezing Gastrointestinal Denies: abdominal pain, nausea, vomiting, diarrhea or constipation Genitourinary Denies: dysuria or urinary frequency Musculoskeletal Denies: back pain, neck pain, joint pain or muscle weakness Integumentary/Breast Denies: rash or new lesions Neurological Reports: numbness in extremities and weakness in extremities; Denies: headache(s), dizziness or confusion Endocrine Denies: fatigue or excessive sweating Hematologic/Lymphati c Denies: easy bruising or easy bleeding Allergic/Immunologic Denies: wheezing Exam Mental Status Exam - Psych Appearance casually dressed and no apparent distress Attitude cooperative and calm Activity/Motor Behavior MSE activity/motor behavior finding no adventitious movements Speech regular rate, regular volume and regular prosody Mood OK Affect congruent Thought Process linear, logical and coherent Thought Content no delusions and no hallucinations Suicidal Ideation none Homicidal Ideation none Attention intact Concentration intact Sensorium/Orientatio n awake, alert and oriented x3 Memory (more content not included)... Normal Testosterone, Total / Freeon 06-14-2024 TESTOSTER,FREE 9.16 ng/dL Normal 5.00-21.00 Comment on above: Order Comment: N Performed By: #### L 502.0500, L3100.5310, L100.0100, L500.4050, L500.4100, L501.9940, L501.1400 #### [id number] [place], [address] TESTOSTERONE, T 393 ng/dL Normal 264-916 Comment on above: Order Comment: N Result Comment: Adul t male reference interval is based on a population of healthy nonobese males (BMI <30) between 19 and 39 years old. esteban Ames.al. JCEM 2017,102;4548-9801. PMID: [id number]. Performed By: #### L 502.0500, L3100.5310, L100.0100, L500.4050, L500.4100, L501.9940, L501.1400 #### [id number] [place], [address] TESTOSTERONE,%F 2.33 Normal 1.50-4.20 Comment on above: Order Comment: N Result Comment: Perf ormed at: - [facility] [id number] Arts Administrator: Yasmani Wright PhD, Phone: [phone] Performed at: [facility] [id number] Arts Administrator: Bhupinder Traore MD, Phone: [phone] Performed By: #### L 502.0500, L3100.5310, L100.0100, L500.4050, L500.4100, L501.9940, L501.1400 #### [id number] [place], [place], [id number]) CBC W/Diff, Automatedon 09-2023 Absolute Lymph 1.65 X10 3/uL Normal 0.83-4.51 Comment on above: Performed By: #### L 502.0500, L3100.5310, L100.0100, L500.4050, L500.4100, L501.9940, L501.1400 #### [facility] [address] [place], [address] Absolute Neut 5.1 X10 3/uL Normal 2.0-7.7 Comment on above: Performed By: #### L 502.0500, L3100.5310, L100.0100, L500.4050, L500.4100, L501.9940, L501.1400 #### [facility] [address] [place], [address] Basophils/100 WBC (Bld) 0.7 % Normal 0-1 Comment on above: Performed By: #### L 502.0500, L3100.5310, L100.0100, L500.4050, L500.4100, L501.9940, L501.1400 #### [facility] [address] [place], [address] Eosinophils/100 WBC (Bld) 1.3 % Normal 0-5 Comment on above: Performed By: #### L 502.0500, L3100.5310, L100.0100, L500.4050, L500.4100, L501.9940, L501.1400 #### [facility] [address] [place], [address] Erythrocyte distribution width (RBC) [Ratio] 12.2 % Normal 11.6-14.6 Comment on above: Performed By: #### L 502.0500, L3100.5310, L100.0100, L500.4050, L500.4100, L501.9940, L501.1400 #### [facility] [address] [place], [address] Hematocrit (Bld) [Volume fraction] 40.6 % Normal 40-54 Comment on above: Performed By: #### L 502.0500, L3100.5310, L100.0100, L500.4050, L500.4100, L501.9940, L501.1400 #### [facility] [address] [place], [address] Hemoglobin (Bld) [Mass/Vol] 13.6 g/dL Normal 13.0-16.5 Comment on above: Performed By: #### L 502.0500, L3100.5310, L100.0100, L500.4050, L500.4100, L501.9940, L501.1400 #### [facility] [address] [place], [address] IG% 0.400 Normal 0.0-0.9 Comment on above: Result Comment: IG% - Immature Granulocytes (promyelocytes, myelocytes and metamyelocytes) > 1% indicates that a LEFT SHIFT is Present. Performed By: #### L 502.0500, L3100.5310, L100.0100, L500.4050, L500.4100, L501.9940, L501.1400 #### [facility] [address] [place], [address] Lymphocytes/100 WBC (Bld) 21.9 % Normal 19-41 Comment on above: Performed By: #### L 502.0500, L3100.5310, L100.0100, L500.4050, L500.4100, L501.9940, L501.1400 #### [facility] [address] [place], [address] MCH (RBC) [Entitic mass] 29.5 pg Normal 27.0-32.0 Comment on above: Performed By: #### L 502.0500, L3100.5310, L100.0100, L500.4050, L500.4100, L501.9940, L501.1400 #### [facility] [address] [place], [address] MCHC (RBC) [Mass/Vol] 33.5 g/dL Normal 32-36 [facility] Comment on above: Performed By: #### L 502.0500, L3100.5310, L100.0100, L500.4050, L500.4100, L501.9940, L501.1400 #### [facility] [address] [place], [address] MCV (RBC) [Entitic vol] 88.1 fL Normal 80-94 Comment on above: Performed By: #### L 502.0500, L3100.5310, L100.0100, L500.4050, L500.4100, L501.9940, L501.1400 #### [facility] [address] [place], [address] Monocytes/100 WBC (Bld) 8.3 % Normal 0-10 Comment on above: Performed By: #### L 502.0500, L3100.5310, L100.0100, L500.4050, L500.4100, L501.9940, L501.1400 #### [facility] [address] [place], [address] Neutrophils/100 WBC (Bld) 67.4 % Normal 47-70 Comment on above: Performed By: #### L 502.0500, L3100.5310, L100.0100, L500.4050, L500.4100, L501.9940, L501.1400 #### [facility] [address] [place], [address] Nucleated RBC (Bld) [#/Vol] 0 10*3/uL Normal 0-5 Comment on above: Performed By: #### L 502.0500, L3100.5310, L100.0100, L500.4050, L500.4100, L501.9940, L501.1400 #### [facility] [address] [place], [address] Platelet mean volume (Bld) [Entitic vol] 9.7 fL Normal 6.2-12.0 Comment on above: Performed By: #### L 502.0500, L3100.5310, L100.0100, L500.4050, L500.4100, L501.9940, L501.1400 #### [facility] [address] [place], [address] Platelets (Bld) [#/Vol] 299 10*3/uL Normal 150-450 Comment on above: Performed By: #### L 502.0500, L3100.5310, L100.0100, L500.4050, L500.4100, L501.9940, L501.1400 #### [facility] [address] [place], [address] RBC (Bld) [#/Vol] 4.61 10*6/uL Normal 4.6-6.2 [facility] Comment on above: Performed By: #### L 502.0500, L3100.5310, L100.0100, L500.4050, L500.4100, L501.9940, L501.1400 #### [facility] [address] [place], [address] RDW SD 39.5 fl Normal 35.1-43.9 Comment on above: Performed By: #### L 502.0500, L3100.5310, L100.0100, L500.4050, L500.4100, L501.9940, L501.1400 #### [facility] [address] [place], [address] WBC (Bld) [#/Vol] 7.6 10*3/uL Normal 4.4-11.0 [facility] Comment on above: Performed By: #### L 502.0500, L3100.5310, L100.0100, L500.4050, L500.4100, L501.9940, L501.1400 #### [facility] [address] [place], [address] Comprehensive Metabolic Prof ilon 06-06-2024 Albumin [Mass/Vol] 3.5 g/dL Normal 3.2-5.0 [facility] Comment on above: Performed By: #### L 502.0500, L3100.5310, L100.0100, L500.4050, L500.4100, L501.9940, L501.1400 #### [facility] [address] [place], [address] Albumin/Globulin [Mass ratio] 0.9 {ratio} Normal 0.9-2.4 Comment on above: Performed By: #### L 502.0500, L3100.5310, L100.0100, L500.4050, L500.4100, L501.9940, L501.1400 #### [facility] [address] [place], [address] ALK P 83 U/L Normal 45-117 Comment on above: Performed By: #### L 502.0500, L3100.5310, L100.0100, L500.4050, L500.4100, L501.9940, L501.1400 #### [facility] [address] [place], [address] ALT [Catalytic activity/Vol] 33 U/L Normal 16-61 Comment on above: Performed By: #### L 502.0500, L3100.5310, L100.0100, L500.4050, L500.4100, L501.9940, L501.1400 #### [facility] [address] [place], [address] AST [Catalytic activity/Vol] 27 U/L Normal 15-37 Comment on above: Performed By: #### L 502.0500, L3100.5310, L100.0100, L500.4050, L500.4100, L501.9940, L501.1400 #### [facility] [address] [place], [address] Bilirubin [Mass/Vol] 0.30 mg/dL Normal 0.20-1.00 [facility] Comment on above: Result Comment: For patients on eltrombopag therapy, use of Dimension [place] TBIL is not recommended. Performed By: #### L 502.0500, L3100.5310, L100.0100, L500.4050, L500.4100, L501.9940, L501.1400 #### [facility] [address] [place], [address] BUN/CRE 21.3 RATIO High 10-20 Comment on above: Performed By: #### L 502.0500, L3100.5310, L100.0100, L500.4050, L500.4100, L501.9940, L501.1400 #### [facility] [address] [place], [address] CA,Total 9.3 mg/dL Normal 8.5-10.1 Comment on above: Performed By: #### L 502.0500, L3100.5310, L100.0100, L500.4050, L500.4100, L501.9940, L501.1400 #### [facility] [address] [place], [address] Chloride [Moles/Vol] 107 mmol/L Normal 98-107 [facility] Comment on above: Performed By: #### L 502.0500, L3100.5310, L100.0100, L500.4050, L500.4100, L501.9940, L501.1400 #### [facility] [address] [place], [address] CO2 [Moles/Vol] 25.0 mmol/L Normal 21.0-32.0 Comment on above: Performed By: #### L 502.0500, L3100.5310, L100.0100, L500.4050, L500.4100, L501.9940, L501.1400 #### [facility] [address] [place], [address] Creatinine [Mass/Vol] 1.27 mg/dL Normal 0.70-1.30 [facility] Comment on above: Result Comment: The validity of the calculated GFR GFRAA in patients over 70 years has not been determined. Clinical correlation is essential. Performed By: #### L 502.0500, L3100.5310, L100.0100, L500.4050, L500.4100, L501.9940, L501.1400 #### [facility] [address] [place], [address] EST GFR - AA 78 mL/min Normal >60 Comment on above: Result Comment: Afri can Jamaican GFR Calc Performed By: #### L 502.0500, L3100.5310, L100.0100, L500.4050, L500.4100, L501.9940, L501.1400 #### [facility] [address] [place], [place], [address] (277) GAP 8 Normal 5-15 Comment on above: Performed By: #### L 502.0500, L3100.5310, L100.0100, L500.4050, L500.4100, L501.9940, L501.1400 #### [facility] [address] [place], [address] GFR/1.73 sq M.predicted among non-blacks MDRD (S/P/Bld) [Vol rate/Area] 64 mL/min/{1.73_m2} Normal >60 Comment on above: Result Comment: Non- GFR Calc Performed By: #### L 502.0500, L3100.5310, L100.0100, L500.4050, L500.4100, L501.9940, L501.1400 #### [facility] [address] [place], [address] Globulin (S) [Mass/Vol] 3.9 g/dL Normal 2.2-4.2 Comment on above: Performed By: #### L 502.0500, L3100.5310, L100.0100, L500.4050, L500.4100, L501.9940, L501.1400 #### [facility] [address] [place], [address] Glucose [Mass/Vol] 104 mg/dL Normal 74-106 [facility] Comment on above: Result Comment: Fast ing Glucose result from 100 to 125 mg/dL suggests IMPAIRED HOMEOSTASIS per A.D.A. criteria. Performed By: #### L 502.0500, L3100.5310, L100.0100, L500.4050, L500.4100, L501.9940, L501.1400 #### [facility] [address] [place], [address] Potassium [Moles/Vol] 4.3 mmol/L Normal 3.5-5.1 [facility] Comment on above: Performed By: #### L 502.0500, L3100.5310, L100.0100, L500.4050, L500.4100, L501.9940, L501.1400 #### [facility] [address] [place], [address] Sodium [Moles/Vol] 140 mmol/L Normal 136-145 [facility] Comment on above: Performed By: #### L 502.0500, L3100.5310, L100.0100, L500.4050, L500.4100, L501.9940, L501.1400 #### [facility] [address] [place], [address] T PROT 7.4 g/dL Normal 6.4-8.2 Comment on above: Performed By: #### L 502.0500, L3100.5310, L100.0100, L500.4050, L500.4100, L501.9940, L501.1400 #### [facility] [address] [place], [address] Urea nitrogen [Mass/Vol] 27 mg/dL High 7-18 Comment on above: Performed By: #### L 502.0500, L3100.5310, L100.0100, L500.4050, L500.4100, L501.9940, L501.1400 #### [facility] [address] [place], [address] Lipid Profileon 06-06-2024 Cholesterol [Mass/Vol] 190 mg/dL Normal 200 Comment on above: Result Comment: <200 mg/dL Desirable 200-240 mg/dL Borderline >240 mg/dL High Risk Performed By: #### L 502.0500, L3100.5310, L100.0100, L500.4050, L500.4100, L501.9940, L501.1400 #### [facility] [address] [place], [address] Cholesterol in HDL [Mass/Vol] 68 mg/dL Normal Comment on above: Result Comment: The drugs N-Acetylcysteine and Metamizole may falsely depress this assay. Reference Range HDL <40 mg/dL Low HDL Cholesterol HDL >or= 60 mg/dL High HDL Cholesterol Performed By: #### L 502.0500, L3100.5310, L100.0100, L500.4050, L500.4100, L501.9940, L501.1400 #### [facility] [address] [place], [address] Cholesterol in LDL [Mass/Vol] 92 mg/dL Normal 0-130 Comment on above: Performed By: #### L 502.0500, L3100.5310, L100.0100, L500.4050, L500.4100, L501.9940, L501.1400 #### [facility] [address] [place], [address] Cholesterol in VLDL [Mass/Vol] 30 mg/dL Normal 5-40 Comment on above: Performed By: #### L 502.0500, L3100.5310, L100.0100, L500.4050, L500.4100, L501.9940, L501.1400 #### [facility] [address] [place], [address] Triglyceride [Mass/Vol] 148 mg/dL Normal Comment on above: Result Comment: The drugs N-Acetylcysteine and Metamizole may falsely depress this assay. Serum Triglycerides Reference Interval Normal <150 mg/dL Borderline high 150 - 199 mg/dL High 200 - 499 mg/dL Very High > or = 500 mg/dL Performed By: #### L 502.0500, L3100.5310, L100.0100, L500.4050, L500.4100, L501.9940, L501.1400 #### [facility] [address] [place], [address] Microalbumin,Random Urineon 06-06-2023 MICROALBUMIN,UR 221.0 mg/L Normal NO RANGE EST. [facility] Comment on above: Performed By: #### L 502.0500, L3100.5310, L100.0100, L500.4050, L500.4100, L501.9940, L501.1400 #### [facility] [address] [place], [address] PSA,Total- Diagnosticon 05-25 PSA, DIAGNOSTIC 2.11 ng/mL Normal 0.0-4.0 Comment on above: Result Comment: This test was performed using the TPSA assay method for the Floqq system. Values obtained with different assay methods cannot be used interchangably. When changing PSA assays in the course of monitoring a patient, additional sequential testing should be carried out to confirm baseline values. Performed By: #### L 502.0500, L3100.5310, L100.0100, L500.4050, L500.4100, L501.9940, L501.1400 #### [id number] [place], [address] Uric Acidon 06-06-2024 URIC 6.4 mg/dL Normal 3.5-7.2 Comment on above: Result Comment: The drugs N-Acetylcysteine and Metamizole may falsely depress this assay. Performed By: #### L 502.0500, L3100.5310, L100.0100, L500.4050, L500.4100, L501.9940, L501.1400 #### [id number] [place], [place], [address] Urgent Care Visit Reporton 0 05-27-2024 [address] Visit Report [facility] [address], [address] [place], [place] [address] OFFICE VISIT Date of Service: 05/27/24 MR#: [id number] Acct: [id number] Name: PAULINA WOOD Rep #: [id number] : 1975 Provider: JANEL Hernandez Age/Sex: 48/M Location: [facility] Status: Signed Intake Vital Signs 04/28/24 16:18 05/27/24 14:21 05/27/24 14:28 Height 5 ft 9 in 5 ft 9 in Weight: 225 lb BMI 33.2 BP 170/102 H 154/92 H Blood Pressure Location Lt brachial Rt brachial Position Sitting Sitting Respiration 16 14 Pulse 102 H 88 Pulse Source Monitor Auscultation Temp 99.5 F H Temp Source Temporal Pulse Oximetry (%) 98 Oxygen Delivery Method room air Intake Visit Reasons: L ELBOW PAIN/SWELLING/UNKN INJURY Chief Complaint: LT ELBOW PAIN SWELLING UNK INJ 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 Accompanied by: Is patient in pain?: Yes Allergies No Known Allergies Allergy (Verified 05/27/24 14:22) Medications ???Medication ???Instructions ???Recorded ???Confirmed ???Type cholecalciferol (vitamin D3) 25 5,000 unit PO DAILY 03/08/18 05/27/24 History mcg (1,000 unit) capsule insulin aspart U-100 100 unit/mL 1.55 unit continuous IV infusion 03/08/18 05/27/24 History subcutaneous solution CONT glucagon 3 mg/actuation nasal 3 mg intranasal ONCE #2 ea 01/16/20 05/27/24 Rx spray (Baqsimi) testosterone cypionate 200 mg/mL 100 mg (0.5 mL) IM Q2W #1 mL 01/16/20 05/27/24 Rx intramuscular oil (Depo-Testosterone) lisinopril 5 mg tablet 5 mg PO DAILY 08/01/22 05/27/24 History calcium carbonate 600 mg-vitamin 1 tab PO DAILY 08/22/22 05/27/24 History D3 10 mcg (400 unit) chewable tablet (Calcium 600 with Vitamin D3) rosuvastatin 5 mg tablet (Crestor) 5 mg PO DAILY 09/04/23 05/27/24 History bupropion HCl 150 mg tablet,12 hr See Rx Instructions .Route 04/28/24 05/27/24 Rx sustained-release .COMPLEX #60 TABLETS buspirone 15 mg tablet See Rx Instructions .Route 04/28/24 05/27/24 Rx .COMPLEX #180 tabs fluoxetine 20 mg capsule 20 mg PO DAILY #30 caps 04/28/24 05/27/24 Rx indomethacin 50 mg capsule 50 mg PO TID #30 caps 05/27/24 05/27/24 Rx PFSH Medical History (Updated 05/27/24 @ 14:32 by JANEL Rendon) Swelling of left elbow MDD (major depressive disorder) Obesity Diabetes mellitus type 1 GÓMEZ (generalized anxiety disorder) Wears contact lenses Wears glasses Cancer Alcohol use Insulin dependent diabetes mellitus Dietary restriction Non-smoker Encounter for screening for COVID-19 Anxiety Depression Severe headache Myalgia Arthralgia Dyslipidemia Surgical History H/O spinal fusion History of Imkael-en-Y gastric bypass Family History Mother Hypertension Anxiety Father Diabetes Sister Anxiety Social History Smoking Status: Never smoker alcohol intake: current alcohol intake frequency: a few times a month Alcohol type: beer substance use type: does not use HPI HPI Chief Complaint: LT ELBOW PAIN SWELLING UNK INJ Details: PAULINA WOOD, is a 48 M who presents to the office today for initial evaluation approximately 1 week history of left elbow swelling with localized warmth and tenderness of unknown etiology. No history of trauma to the same. No loss of sensation or strength or function at injury site or distal to. Patient noted using an Paul wrap for localized compression which increased his discomfort though because swelling to reseed significantly, nonetheless due to the persistence of discomfort as well as localized warmth he is requesting an evaluation as well as treatment. No complaints of fever, chills, sweats, lightheadedness/dizz iness, nausea/vomiting, or complaints of chest pressure/shortness of breath/dyspnea on exertion. No rrkr-gge-ofuuvns products taken to assist. PMH diabetes type 1. No other associated symptoms and no other alleviating/aggravat ing factors. ROS Const Constitutional: No other (As above) Exam Const General: cooperative, healthy appearing and no acute distress Orientation: alert and awake HENMT Head: normal to inspection Ears: hearing grossly normal bilaterally and external ears normal Nose: external nose normal Resp Effort Inspection: normal respiratory effort and able to speak in complete sentences Cardio Rate: regular rate Pulses: radial pulses present Skin General: no rashes or lesions noted (No open wounds/skin compromise appreciated) Neuro General: patient alert, patient awake and patient oriented x3 Cognition: normal cognition Speech: speech normal Extrem General: full ROM, capillary refill normal and normal exam except as noted (Except lef (more content not included)... Normal MR/BMS.BPon 04-28-2024 MR/BMS.BP [facility] [address], [address] [place] [address] OFFICE VISIT Date of Service: 04/28/24 MR#: [id number] Acct: [id number] Name: PAULINA WOOD Rep #: [id number] : 1975 Provider: Dr. Marcelo Butler se, DO Age/Sex: 48/M Location: [facility] Status: Signed Intake Vital Signs 10/24/23 07:56 04/07/24 14:45 04/23/24 08:39 04/28/24 16:18 Height 5 ft 9 in 5 ft 9 in 5 ft 9 in 5 ft 9 in Weight: 226 lb BMI 33.3 BP 142/88 H Blood Pressure Location Lt brachial Position Sitting Pulse 80 Pulse Source Monitor Pulse Oximetry (%) 98 Oxygen Delivery Method room air BP Intake Visit Reasons: 6 M FU Allergies No Known Allergies Allergy (Verified 04/23/24 08:43) PFS Medical History (Updated 04/29/24 @ 06:[address] Marcelo Paz, DO) MDD (major depressive disorder) Obesity Diabetes mellitus type 1 GÓMEZ (generalized anxiety disorder) Wears contact lenses Wears glasses Cancer Alcohol use Insulin dependent diabetes mellitus Dietary restriction Non-smoker Encounter for screening for COVID-19 Anxiety Depression Severe headache Myalgia Arthralgia Dyslipidemia Surgical History H/O spinal fusion History of Mikael-en-Y gastric bypass Family History Mother Hypertension Anxiety Father Diabetes Sister Anxiety Social History Smoking Status: Never smoker alcohol intake: current alcohol intake frequency: a few times a month Alcohol type: beer substance use type: does not use HPI History of Present Illness History provided by: patient HPI: Paulina Wood is a 48 year old male who presents today for follow up evaluation. Patient reports that he has been ok. Patient reports that he has been struggling the past couple months. Feels like this has been in nearly all aspects of life. Feels like he is struggling more in depression than he is with anxiety. Describes feeling somewhat anhedonic. Comments that it takes a lot of energy for him to continue to appear happy despite not being. Has been taking medication regularly. Has been on other medications in the past but cannot recall other than Effexor. Denies any SI or HI or AVH. Review of Systems Constitutional Denies: fever(s), chills, change in weight or fatigue Eyes Denies: change in vision or blurry vision Ears, Nose, Mouth, Throat Denies: throat pain, neck pain or change in hearing Cardiovascular Denies: chest pain, palpitations or dyspnea Respiratory Denies: dyspnea, cough or wheezing Gastrointestinal Denies: abdominal pain, nausea, vomiting, diarrhea or constipation Genitourinary Denies: dysuria or urinary frequency Musculoskeletal Denies: back pain, neck pain, joint pain or muscle weakness Integumentary/Breast Denies: rash or new lesions Neurological Reports: numbness in extremities and weakness in extremities; Denies: headache(s), dizziness or confusion Endocrine Denies: fatigue or excessive sweating Hematologic/Lymphati c Denies: easy bruising or easy bleeding Allergic/Immunologic Denies: wheezing Exam Mental Status Exam - Psych Appearance casually dressed and no apparent distress Attitude cooperative and calm Activity/Motor Behavior MSE activity/motor behavior finding no adventitious movements Speech regular rate, regular volume and regular prosody Mood depressed Affect congruent Thought Process linear, logical and coherent Thought Content no delusions and no hallucinations Suicidal Ideation none Homicidal Ideation none Attention intact Concentration intact Sensorium/Orientatio n awake, alert and oriented x3 Memory/Cognition other (appropriate for stated age) Insight good Judgement good Assessment Plan Assessment Plan (1) GÓMEZ (generalized anxiety disorder): Plan: - Continue wellbutrin 150 mg BID - Will continue buspar to 15 mg twice a day -We will cross titrate fluoxetine for Celexa; patient to take 20 mg of Celexa for 2 weeks then discontinue. Patient to start 10 mg for 2 weeks of fluoxetine and then increase to 20 mg every day. - Patient was informed about the risk, benefits and possible side effects of SSRI type medications. These side effects include but are not limited to nausea, diarrhea, headache, increased bleeding risk, and sexual dysfunction. (2) MDD (major depressive disorder): Plan: - See above regarding medication Medications: New fluoxetine 20 mg PO DAILY 30 caps 2RF F41.1 - Generalized anxiety disorder Refilled bupropion HCl SR TAKE 1 TABLET BY MOUTH TWICE DAILY 60 TABLETS 2RF buspirone TAKE 1 TABLET BY MOUTH TWICE DAILY 180 tabs 1RF Discontinued citalopram Discontinued Reason: Order C (more content not included)... Normal Cerv Spine 4 or 5 Viewson Cerv Spine [address] [facility] [address] [place] [address] Cerv Spine 4 or 5 Views MR#: [id number] Acct: [id number] Name: PAULINA WOOD Rep #: [id number] : 1975 M 48 From: Gene Carvalho MD PCP: Dr. Walt Marinelli MD Status: [facility] CLI Study: Cerv Spine 4 or 5 Views Date of Exam: 04/23/24 Exam# [id number] Ordering Dr: Davidson Sanchez MD [id number] STUDY: X-RAY - CERVICAL SPINE REASON FOR EXAM: Male, 48 years old. neck pain -- Please do upright AP lateral flexion-extension TECHNIQUE: 5 view(s) of the cervical spine were obtained. COMPARISON: 09/20/2023 FINDINGS: Normal anterior atlantoaxial articulation. Normal odontoid process. Normal cervical lordosis. No subluxation on the flexion or extension views to suggest instability. Status post anterior cervical discectomy and fusion from C5 through C7 with anatomic alignment. Normal disc space heights. Normal visualized intervertebral neuroforamina. The soft tissue structures are unremarkable. RAD/Cerv Spine 4 or 5 Views IMPRESSION: No change from 09/20/2023. Electronically Signed: Gene Carvalho MD at 9:38 EDT , CC: Dr. Davidson Sanchez MD; Dr. Walt Marinelli MD Academic Registrar: Signed Normal Orthopedic Visit Reporton Orthopedic Visit Report [facility] [address] [place] [address] OFFICE VISIT Date of Service: 04/23/24 MR#: [id number] Acct: [id number] Name: PAULINA WOOD Rep #: [id number] : 1975 Provider: Dr. Davidson Sanchez MD Age/Sex: 48/M Location: [facility] Status: Signed Intake Vital Signs 10/24/23 07:56 04/07/24 14:45 04/23/24 08:39 Height 5 ft 9 in 5 ft 9 in 5 ft 9 in Weight: 226 lb 227 lb 3 oz BMI 33.3 33.5 BP 142/88 H Blood Pressure Location Lt brachial Position Sitting Pulse 80 Pulse Source Monitor Pulse Oximetry (%) 98 Oxygen Delivery Method room air Intake Visit Reasons: CERVICAL SPINE Accompanied by: Is patient in pain?: No Allergies No Known Allergies Allergy (Verified 04/23/24 08:43) Medications ???Medication ???Instructions ???Recorded ???Confirmed ???Type cholecalciferol (vitamin D3) 25 5,000 unit PO DAILY 03/08/18 04/23/24 History mcg (1,000 unit) capsule insulin aspart U-100 100 unit/mL 1.55 unit continuous IV infusion 03/08/18 04/23/24 History subcutaneous solution CONT glucagon 3 mg/actuation nasal 3 mg intranasal ONCE #2 ea 01/16/20 04/23/24 Rx spray (Baqsimi) testosterone cypionate 200 mg/mL 100 mg (0.5 mL) IM Q2W #1 mL 01/16/20 04/23/24 Rx intramuscular oil (Depo-Testosterone) lisinopril 5 mg tablet 5 mg PO DAILY 08/01/22 04/23/24 History calcium carbonate 600 mg-vitamin 1 tab PO DAILY 08/22/22 04/23/24 History D3 10 mcg (400 unit) chewable tablet (Calcium 600 with Vitamin D3) rosuvastatin 5 mg tablet (Crestor) 5 mg PO DAILY 09/04/23 04/23/24 History buspirone 15 mg tablet See Rx Instructions .Route 11/12/23 04/23/24 Rx .COMPLEX #180 tabs citalopram 40 mg tablet See Rx Instructions .Route 04/08/24 04/23/24 Rx .COMPLEX #30 tabs bupropion HCl 150 mg tablet,12 hr See Rx Instructions .Route 04/21/24 04/23/24 Rx sustained-release .COMPLEX #60 TABLETS PFSH Medical History Obesity Diabetes mellitus type 1 GÓMEZ (generalized anxiety disorder) Wears contact lenses Wears glasses Cancer Alcohol use Insulin dependent diabetes mellitus Dietary restriction Non-smoker Encounter for screening for COVID-19 Anxiety Depression Severe headache Myalgia Arthralgia Dyslipidemia Surgical History H/O spinal fusion History of Mikael-en-Y gastric bypass Family History Mother Hypertension Anxiety Father Diabetes Sister Anxiety Social History Smoking Status: Never smoker alcohol intake: current alcohol intake frequency: a few times a month Alcohol type: beer substance use type: does not use HPI CERVICAL SPINE Details: This documentation accurately reflects the service provided and the decisions made by me, Dr. Davidson Sanchez MD 04/23/24 0837. Part of today???s visit was documented by Kayla DOWNEY , acting as scribe. PAULINA WOOD is a 48 year old M here today for RIght arm weakness. Patient had his neck fused by Dr Dahl (anterior cervical fusion C6-7, application of spine plate from C5-C7, anterior cervical fusion C5-6, insertion of anterior cage C6-7,insertion of anterior cage C5-6 dos 08/22/22.) Patient states he is having weakness with his right arm and this has been going on for a month. Patient denies any injury, and numbness and tingling. Patient states the weakness is all the time. Patient states he has strength above and below the vertebra. 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 He is now 1.5 to 2 years status post C4-[address] Dahl. Prior to the surgery had right upper extremity radiating pain as well as left hand radial numbness dorsally. The right upper extremity radiating pain improved after the surgery but the left radial dorsal hand numbness is persistent but has not worsened with time. Over the last 1 month he has noticed some shoulder weakness on the right side. He denies any injuries. He denies any neck pain. He denies any radiating pain. He denies any dexterity or balance issues now or prior to his surgery. Ortho Exam General General: Yes no acute distress Neurologic: Yes alert and Yes oriented x3 Spine SPINE TESTING CERVICAL THORACIC LUMBAR Musculoskeletal Strength 0=absent - 5=normal Details: Examination of the neck shows prior incision well-healed. Neurologic bilateral upper extremity shows 5 x 5 power normal shows normal sensations in all dermatomes. Dyllan's negative. Romberg's is negative. Tandem gait shows mild imbalance. There is no hyperreflexia lower extremities. Coding Level of Care Code Off vis,est,level 4 Diagnoses Other c (more content not included)... Normal Endocrinology Visit Reporton 04-07-2024 Endocrinology Visit Report [facility] 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 Accompanied by: Self Is patient in pain?: No Allergies No Known Allergies Allergy (Verified 04/07/24 14:49) Medications ???Medication ???Instructions ???Recorded ???Confirmed ???Type cholecalciferol (vitamin D3) 25 5,000 unit PO DAILY 03/08/18 04/07/24 History mcg (1,000 unit) capsule insulin aspart U-100 100 unit/mL 1.55 unit continuous IV infusion 03/08/18 04/07/24 History subcutaneous solution CONT glucagon 3 mg/actuation nasal 3 mg intranasal ONCE #2 ea 01/16/20 04/07/24 Rx spray (Baqsimi) testosterone cypionate 200 mg/mL 100 mg (0.5 mL) IM Q2W #1 mL 01/16/20 04/07/24 Rx intramuscular oil (Depo-Testosterone) lisinopril 5 mg tablet 5 mg PO DAILY 08/01/22 04/07/24 History calcium carbonate 600 mg-vitamin 1 tab PO DAILY 08/22/22 04/07/24 History D3 10 mcg (400 unit) chewable tablet (Calcium 600 with Vitamin D3) rosuvastatin 5 mg tablet (Crestor) 5 mg PO DAILY 09/04/23 04/07/24 History bupropion HCl 150 mg tablet,12 hr See Rx Instructions .Route 10/24/23 04/07/24 Rx sustained-release .COMPLEX #60 TABLETS buspirone 15 mg tablet See Rx Instructions .Route 11/12/23 04/07/24 Rx .COMPLEX #180 tabs citalopram 40 mg tablet See Rx Instructions .Route 03/12/24 04/07/24 Rx .COMPLEX #30 tabs PFSH Medical History Obesity Diabetes mellitus type 1 GÓMEZ (generalized anxiety disorder) Wears contact lenses Wears glasses Cancer Alcohol use Insulin dependent diabetes mellitus Dietary restriction Non-smoker Encounter for screening for COVID-19 Anxiety Depression Severe headache Myalgia Arthralgia Dyslipidemia Surgical History H/O spinal fusion History of Mikael-en-Y gastric bypass Family History Mother Hypertension Anxiety Father Diabetes Sister Anxiety Social History Smoking Status: Never smoker alcohol intake: current alcohol intake frequency: a few times a month Alcohol type: beer substance use type: does not use HPI HPI Chief Complaint: f/u diabetes Details: PAULINA WOOD, is a 48 M who presents to the office today for evaluation and management of diabetes. A1C today is 7.5%, improved from 09/04/23 at 7.7%. He has lost 4 lbs. Currently using [employer]tronic 780 g with guardian 4 CGM- he is pleased with system. Unfortunately, [employer] webpage is down, unable to evaluate pump settings/CGM tracings. He admits that he does not bolus as he should. He has lows out of nowhere. He denies any significant episodes of hypoglycemia that has required assistance from others. BP elevated at 142/88. Currently taking lisinopril 5 mg once daily. Reports he drank energy drink prior to appt time. Admits that he consumes a significant amount of caffeine daily. Complains of intermittent heart fluttering. Denies any associated chest pain, shortness of breath, dizziness, etc. Labs are up to date and unremarkable. Exam Const General: cooperative, healthy appearing, comfortable and no acute distress Nutritional Appearance: obese Orientation: alert, awake and oriented x3 HENMT Head: normal to inspection Ears: hearing grossly normal bilaterally Nose: external nose normal Face and sinus: normal facial exam Eyes General: appearance normal, both eyes and all related structures Alignment and Position: alignment normal Sclera: sclerae normal Neck Neck: normal visual inspection Carotids: normal carotid upstroke Chest Chest palpation inspection: normal inspection of the chest Resp Effort Inspection: normal respiratory effort, able to speak in complete sentences, symmetric chest movement, normal respiratory pattern, no audible wheezes and no cough Auscultation: Bilateral: Clear to Auscultation Cardio Rate: regular rate Rhythm: regular rhythm Heart Sounds: S1 normal and S2 normal Bruits: no carotid bruits GI Inspection: normal to inspection and obesity Musc Cervi (more content not included)... Normal No Panel Informationon 07-13 Fructosamine 349 umol/L 0-285 Work Phone: Comment on above: Published reference interval for apparently healthysubjects between age 20 and 60 is 205 - 285 umol/L and in apoorly controlled diabetic population is 228 - 563 umol/Lwith a mean of 396 umol/L.Performed at: [facility] [address] [id number] Director: Yasmani Wright PhD, Phone: [phone] Whole blood hemoglobin A1c/t otal hemoglobin ratio (mass fraction)on 07-13-2022 HbA1c (Bld) [Mass fraction] 7.2 % 3.8-5.6 Work Phone: Comment on above: Normal < 5.7 % Predi abetic 5.7 - 6.4 % Diabetic >or= 6.5 % Please note range changes. No Panel Informationon 06-21 Fructosamine 343 umol/L 0-285 Work Phone: Comment on above: Published reference interval for apparently healthysubjects between age 20 and 60 is 205 - 285 umol/L and in apoorly controlled diabetic population is 228 - 563 umol/Lwith a mean of 396 umol/L.Performed at: [facility] [address] [id number] Director: Yasmani Wright PhD, Phone: [phone] Whole blood hemoglobin A1c/t otal hemoglobin ratio (mass fraction)on 06-21-2022 HbA1c (Bld) [Mass fraction] 7.7 % 3.8-5.6 Work Phone: Comment on above: Normal < 5.7 % Predi abetic 5.7 - 6.4 % Diabetic >or= 6.5 % Please note range changes. Laboratory - Hematology and Cell countson 05-09-2022 HbA1c (Bld) [Mass fraction] 7.3 % Work Phone: Absolute lymphocyte counton 03-18-2022 Lymphocytes Auto (Unsp spec) [#/Vol] 1.27 10*3/uL 0.83-4.51 Work Phone: Basophil percentageon 2021 Basophils/100 WBC (Bld) 0.8 % 0-1 Work Phone: Chloride [Moles/Vol] 104 mmol/L 98-107 [facility] Work Phone: Eosinophils/100 WBC (Bld) 0.8 % 0-5 Work Phone: Glucose [Mass/Vol] 243 mg/dL 74-106 [facility] Work Phone: Comment on above: Glucose result great er than or equal to 200 mg/dLsuggests DIABETES MELLITUS per A.D.A. criteria. Neutrophils (Bld) [#/Vol] 5.7 10*3/uL 2.0-7.7 Work Phone: Neutrophils/100 WBC (Bld) 72.5 % 47-70 Work Phone: Potassium [Moles/Vol] 4.3 mmol/L 3.5-5.1 [facility] Work Phone: Sodium [Moles/Vol] 137 mmol/L 136-145 [place] [facility] Work Phone: WBC (Bld) [#/Vol] 7.9 10*3/uL 4.4-11.0 [place] [facility] Work Phone: Basophil percentage 0 SEEN /hpf 0-[address] Work Phone: Bilirubin Test strip Ql (U)o n 03-18-2022 Bilirubin Ql (U) Negative Negative Work Phone: Blood erythrocytes count (nu mber/volume)on 03-18-2022 RBC (Bld) [#/Vol] 5.05 10*6/uL [facility].6[facility]: Blood hemoglobin measurement (mass/volume)on 03-18-2022 Hemoglobin (Bld) [Mass/Vol] 15.1 g/dL 13.0-16.5 Work Phone: Blood lymphocytes/100 leukoc yteson 03-18-2022 Lymphocytes/100 WBC (Bld) 16.1 % 19-41 Work Phone: Blood monocytes/100 leukocyt eson 03-18-2022 Monocytes/100 WBC (Bld) 9.5 % 0-10 Work Phone: Blood platelet mean volumeon 03-18-2022 Platelet mean volume (Bld) [Entitic vol] 9.3 fL 6.2-12.0 Work Phone: Determination of erythrocyte mean corpuscular volume (MCV)on 03-18-2022 MCV (RBC) [Entitic vol] 86.7 fL 80-94 Work Phone: Hematocrit Auto (Bld) [Volum e fraction]on 03-18-2022 Hematocrit (Bld) [Volume fraction] 43.8 % 40-54 Work Phone: Ketones Test strip Ql (U)on 03-18-2022 Ketones Ql (U) Negative Negative Work Phone: Laboratory - Chemistry and C hemistry - challengeon 03-18-2022 CO2 [Moles/Vol] 29.0 mmol/L 21.0-32.0 Work Phone: Urea nitrogen/Creatinine [Mass ratio] 13.9 mg/mg 10-20 Work Phone: Laboratory - Hematology and Cell countson 03-18-2022 Erythrocyte distribution width (RBC) [Entitic vol] 40.1 fL 35.1-43.9 Work Phone: Erythrocyte distribution width (RBC) [Ratio] 12.8 % 11.6-14.6 Work Phone: Immature granulocytes/100 WBC (Bld) 0.300 % 0.0-0.9 Work Phone: Comment on above: IG% - Immature Granu locytes (promyelocytes, myelocytes and metamyelocytes) > 1% indicates that a LEFT SHIFT is Present. MCH (RBC) [Entitic mass] 29.9 pg 27.0-32.0 Work Phone: Nucleated RBC/100 WBC (Bld) [Ratio] 0 % 0-5 Work Phone: MCHC Auto (RBC) [Mass/Vol]on 03-18-2022 MCHC (RBC) [Mass/Vol] 34.5 g/dL 32-36 [facility] Work Phone: Mucus LM Ql (Urine sed)on Mucus Ql (Urine sed) 0 SEEN /hpf [facility] Work Phone: Nitrite Test strip Ql (U)on 03-18-2022 Nitrite Ql (U) Negative Negative Work Phone: No Panel Informationon 03-18 Estimated Creatinine Clearance Calc 85.47 ml/min Work Phone: Estimated GFR (MDRD) Amer 94 mL/min >60 Work Phone: Comment on above: GFR Calc Estimated GFR (MDRD) Non-Af Amer 78 mL/min >60 Work Phone: Comment on above: Non- GFR Calc Platelets bldon 03-18-2022 Platelets (Bld) [#/Vol] 251 10*3/uL 150-450 Work Phone: Protein Test strip Ql (U)on 03-18-2022 Protein Ql (U) 15 mg/dl Negative Work Phone: Serum or plasma calcium gilberto urement (mass/volume)on 03-18-2022 Calcium [Mass/Vol] 8.9 mg/dL 8.5-10.1 [facility] Work Phone: Serum or plasma creatinine m easurement (mass/volume)on 03-18-2022 Creatinine [Mass/Vol] 1.08 mg/dL 0.70-1.30 [facility] Work Phone: Comment on above: The validity of the calculated GFR & GFRAA in patients over 70 years has not been determined. Clinical correlation is essential. Serum or plasma urea nitroge n measurement (mass/volume)on 03-18-2022 Urea nitrogen [Mass/Vol] 15 mg/dL 7-18 Work Phone: Squamous epithelial cells de tection in urine sediment by light microscopyon 03-18-2022 Epithelial cells.squamous LM Ql (Urine sed) 0 SEEN /hpf 0-5 Work Phone: Thin prep Papanicolaou smear with manual screeningon 03-18-2022 Thin prep Papanicolaou smear with manual screening 4 5-15 Work Phone: Urine blood detectionon 02-23 RBC Ql (U) 250 /ul Negative Work Phone: RBC Ql (U) 25-50 SEEN /hpf 0-5 Work Phone: Urine clarityon 03-18-2022 Clarity (U) Clear Clear Work Phone: Urine color determinationon 03-18-2022 Color (U) Yellow Yellow Work Phone: Urine glucose detectionon Glucose Ql (U) 1000 mg/dl Normal Work Phone: Urine leukocyte esterase det ection by dipstickon 03-18-2022 Leukocyte esterase Test strip Ql (U) 25 /ul Negative Work Phone: Urine pHon 03-18-2022 pH (U) 6.0 [pH] 5.0 - 8.0 Work Phone: Urine sediment bacteria coun t by microscopy (number/high power field)on 03-18-2022 Bacteria LM.HPF (Urine sed) [#/Area] 0 /[HPF] None Seen Work Phone: Urine specific gravity measu rementon 03-18-2022 Specific gravity (U) [Rel density] 1.015 1.002-1.030 Work Phone: Urobilinogen Auto test strip Ql (U)on 03-18-2022 Urobilinogen Ql (U) Normal mg/dl Normal [facility] Work Phone: Basophil percentageon 2021 Chloride [Moles/Vol] 106 mmol/L 98-107 [facility] Work Phone: Cholesterol [Mass/Vol] 200 mg/dL <200 Work Phone: Comment on above: <200 mg/dL Desirable 200-240 mg/dL Borderline >240 mg/dL High Risk Glucose [Mass/Vol] 171 mg/dL 74-106 [facility] Work Phone: Comment on above: Fasting Glucose resu lt greater than or equal to 126 mg/dL suggests DIABETES MELLITUS per A.D.A. criteria. Potassium [Moles/Vol] 3.8 mmol/L 3.5-5.1 [facility] Work Phone: Sodium [Moles/Vol] 139 mmol/L 136-145 [facility] Work Phone: Testosterone [Mass/Vol] 488.87 ng/dL Work Phone: Comment on above: CENTRAL 90% REFERENC E RANGES MALE AGE <50 197.44 - 669.58 ng/dL MALE AGE > or = 50 187.72 - 684.19 ng/dL FEMALE AGE <50 8.38 - 35.01 ng/dL FEMALE AGE > or = 50 <7.00 - 35.92 ng/dL Effective as of 04/19/21 Triglyceride [Mass/Vol] 74 mg/dL <199 Work Phone: Comment on above: The drugs N-Acetylcy steine and Metamizole may falsely depress this assay.Serum Triglycerides Reference Interval Normal <150 mg/dL Borderline high 150 - 199 mg/dL High 200 - 499 mg/dL Very High > or = 500 mg/dL Laboratory - Chemistry and C hemistry - challengeon 02-21-2022 CO2 [Moles/Vol] 27.0 mmol/L 21.0-32.0 Work Phone: Urea nitrogen/Creatinine [Mass ratio] 15.5 mg/mg 10-20 Work Phone: No Panel Informationon 02-21 Estimated GFR (MDRD) Amer 100 mL/min >60 Work Phone: Comment on above: GFR Calc Estimated GFR (MDRD) Non-Af Amer 82 mL/min >60 Work Phone: Comment on above: Non- GFR Calc Serum or plasma calcium gilberto urement (mass/volume)on 02-21-2022 Calcium [Mass/Vol] 8.7 mg/dL 8.5-10.1 [facility] Work Phone: Serum or plasma cholesterol in HDL measurement (mass/volume)on 02-21-2022 Cholesterol in HDL [Mass/Vol] 57 mg/dL >40 Work Phone: Comment on above: The drugs N-Acetylcy steine and Metamizole may falsely depress this assay. Reference Range HDL <40 mg/dL Low HDL Cholesterol HDL >or= 60 mg/dL High HDL Cholesterol Serum or plasma cholesterol in VLDL measurement (mass/volume)on 02-21-2022 Cholesterol in VLDL [Mass/Vol] 15 mg/dL 5-40 Work Phone: Serum or plasma creatinine m easurement (mass/volume)on 02-21-2022 Creatinine [Mass/Vol] 1.03 mg/dL 0.70-1.30 [facility] Work Phone: Comment on above: The validity of the calculated GFR & GFRAA in patients over 70 years has not been determined. Clinical correlation is essential. Serum or plasma low density lipoprotein (LDL) cholesterol measurement (mass/volume)on 02-21-2022 Cholesterol in LDL [Mass/Vol] 128 mg/dL 0-130 Work Phone: Serum or plasma urea nitroge n measurement (mass/volume)on 02-21-2022 Urea nitrogen [Mass/Vol] 16 mg/dL 7-18 Work Phone: Thin prep Papanicolaou smear with manual screeningon 02-21-2022 Thin prep Papanicolaou smear with manual screening 6 5-15 Work Phone: Laboratory - Microbiology an d Antimicrobial susceptibilityon 02-01-2022 SARS-CoV-2 (COVID-19) RNA YANI+probe Ql (Unsp spec) Not detected Work Phone: No Panel Informationon 02-01 Influenza Types A,B Rapid (Clinic) Not detected Work Phone: POCT GLUCOSEon 04-10-2019 Glucose [Mass/Vol] 339 mg/dL High 65-99 [facility] Comment on above: Performed By: #### G LYC #### [facility] [address] [place] [address] Glucose [Mass/Vol] 387 mg/dL High 65-99 [facility] Comment on above: Performed By: #### G LYC #### [facility] [address] [place] [address] Glucose [Mass/Vol] 303 mg/dL High 65-99 [facility] Comment on above: Performed By: #### G LYC #### [facility] [facility] [address] [place] [address] Glucose [Mass/Vol] 312 mg/dL High 65-99 [facility] Comment on above: Performed By: #### G LYC #### [facility] [id number] [place] [address] HEMOGLOBIN A1con 04-04-2019 HbA1c (Bld) [Mass fraction] High 4.0-6.0 [facility] Comment on above: Result Comment: 8.5 Hemoglobin A1C levels are related to mean blood glucose during the preceding 2-3 months. The relationship table below may be used as a general guide. Each 1% increase in HGB A1C is a reflection of an increase in mean glucose of approximately 30 mg/dl. Reference: Diabetes Care, volume 29, supplement 1 2005 HGB A1C ................. Approx. Mean Glucose 6% ............................... 120 mg/dl 7% ............................... 150 mg/dl 8% ............................... 180 mg/dl 9% ............................... 210 mg/dl 10% ............................... 240 mg/dl Performed at [address] [address] Performed By: #### P PB #### [place] [address] [place] [address] POCT GLUCOSEon 04-04-2019 Glucose [Mass/Vol] 232 mg/dL High [address] [place] [address] Comment on above: Performed By: #### G LYC #### [place] [address] [place] [address] Glucose [Mass/Vol] 176 mg/dL High [address] [place] [address] Comment on above: Performed By: #### G LYC #### [place] [address] [place] [address] Glucose [Mass/Vol] 122 mg/dL High 6599 [facility] Comment on above: Performed By: #### P PB #### [place] [address] [place] [address] CBC with Diffon 04-03-2019 AB IMMATURE NEUT 0.04 K/UL Normal 0.0-0.1 [facility] Comment on above: Performed By: #### P PB #### [place] [address] [place] [address] ABS BASO 0.03 K/UL Normal 0.00-0.22 [facility] Comment on above: Performed By: #### P PB #### [place] [address] [place] [address] ABS EOS 0.02 K/UL Normal 0-0.45 [facility] Comment on above: Performed By: #### P PB #### [place] [address] [place] [address] ABS NEUTROPHILS 9.26 K/UL High 1.8-7.7 [facility] Comment on above: Performed By: #### P PB #### [facility] [place] [address] [place] [address] ABS.NEUT.CALCULATED Normal [facility] Comment on above: Result Comment: 06.19 Performed at [place] [address] [place] [address] Performed By: #### P PB #### [place] [address] [place] [address] Basophils/100 WBC (Bld) 0.30 % Normal 0-1 [facility] Comment on above: Performed By: #### P PB #### [place] [address] [place] [address] DIFF TYPE AUTO DIFF Normal [facility] Comment on above: Performed By: #### P PB #### [place] [address] [place] [address] Eosinophils/100 WBC (Bld) 0.20 % Normal 0-3 [facility] Comment on above: Performed By: #### P PB #### [place] [address] [place] [address] Erythrocyte distribution width (RBC) [Ratio] 13.2 % Normal 11.7-15.0 [facility] Comment on above: Performed By: #### P PB #### [place] [address] [place] [address] Hematocrit (Bld) [Volume fraction] 47.9 % Normal 41-50 [facility] Comment on above: Performed By: #### P PB #### [place] [address] [place] [address] Hemoglobin (Bld) [Mass/Vol] 15.7 g/dL Normal 13.5-16.5 [facility] Comment on above: Performed By: #### P PB #### [place] [address] [place] [address] Lymphocytes (Bld) [#/Vol] 1.36 10*3/uL Normal 1.2-3.2 [facility] Comment on above: Performed By: #### P PB #### [place] [address] [place] [address] Lymphocytes/100 WBC (Bld) 11.40 % Low 20-40 [facility] Comment on above: Performed By: #### P PB #### [place] [address] [place] [address] MCH (RBC) [Entitic mass] 27.7 pg Normal 26-34 [facility] Comment on above: Performed By: #### P PB #### [facility] [place] [address] [place] [address] MCHC (RBC) [Mass/Vol] 32.8 % Normal 31-37 [facility] Comment on above: Performed By: #### P PB #### [place] [address] [place] [address] MCV (RBC) [Entitic vol] 84.6 fL Normal 80-100 [facility] Comment on above: Performed By: #### P PB #### [place] [address] [place] [address] MEAN PLT VOL 9.8 CU Normal 7.0-12.6 [facility] Comment on above: Performed By: #### P PB #### [place] [address] [place] [address] Monocytes (Bld) [#/Vol] 1.23 10*3/uL High 0-0.8 [facility] Comment on above: Performed By: #### P PB #### [place] [address] [place] [address] Monocytes/100 WBC (Bld) 10.30 % High 0-8 [facility] Comment on above: Performed By: #### P PB #### [place] [address] [place] [address] Neutrophils/100 WBC (Bld) 0.30 % Normal 0.0-1.0 [facility] Comment on above: Performed By: #### P PB #### [place] [address] [place] [address] Neutrophils/100 WBC (Bld) 77.50 % High 50-70 [facility] Comment on above: Performed By: #### P PB #### [place] [address] [place] [address] NRBC'S 0 /100 WBC Normal 0 [facility] Comment on above: Performed By: #### P PB #### [place] [address] [place] [address] Platelets (Bld) [#/Vol] 254 10*3/uL Normal 150-450 [facility] Comment on above: Performed By: #### P PB #### [place] [address] [place] [address] RBC (Bld) [#/Vol] 5.66 M/UL High 4.5-5.5 [facility] Comment on above: Performed By: #### P PB #### [place] [address] [place] [address] RDW-SD 40.7 FL Normal 37.0-54.0 [facility] Comment on above: Performed By: #### P PB #### [place] [address] [place] [address] WBC (Bld) [#/Vol] 11.9 10*3/uL High 4.5-11.0 [facility] Comment on above: Performed By: #### P PB #### [place] [address] [place] [address] POCT GLUCOSEon 04-03-2019 Glucose [Mass/Vol] 162 mg/dL High 65-99 [facility] Comment on above: Performed By: #### P PB #### [place] [address] [place] [address] UGI W KUBon 04-03-2019 UGI W KUB *FINAL Date of Service: 04/03/2019 09:05 Adm #: [id number] Reading Dr:MARGE CUENCA Signoff Dr: MARGE CUENCA PROCEDURE: UGI W REFUGIO - WXR 0132 REASON FOR EXAM: Post Laparoscopic Gastric Bypass RESULT: UGI W KUB: 04/03/2019 9:05 AM CLINICAL HISTORY: One day post laparoscopic gastric bypass with root on one seizure. COMPARISON: None TECHNIQUE: Multiple fluoroscopic spot images were obtained during a single water-soluble contrast contrast upper GI with KUB. Total 22.5 cc of Omnipaque 350 was utilized. Total fluoroscopy time: 43 seconds, images: 2 genetics teacher, 8 series, dose: 66.14 mGy. DAP: 33.61 FINDINGS: Show KUB shows case emphysema lung left lateral chest wall. Surgical clips are noted upper lung. A pump is noted projected over the right side of the abdomen. Fluoroscopic and radiographic evaluation of the thoracic esophagus is within normal limits. There is filling of the gastric pouch is normal filling of small bowel loops consistent gastric bypass. IMPRESSION: 1. Negative for obstruction or leak 2. Status post gastric bypass with normal filling of small bowel loops 3. Subcutaneous emphysema lung left lateral chest wall and surgical clips in left upper quadrant [id number] This report has been produced using speech recognition. Original Interpreting Physician: MARGE CUENCA M.D. Original Transcribed by/Date: [facility] Apr 03 2019 12:42P Original Electronically Signed by/Date: MARGE CUENCA M.D. Apr 03 2019 12:42P Addendum Interpreting Physician: Addendum Transcribed by/Date: NO ADDENDUM Addendum Electronically Signed by/Date: [facility] POCT GLUCOSEon 04-02-2019 Glucose [Mass/Vol] 167 mg/dL High 65-99 [facility] Comment on above: Performed By: #### P PB #### [facility] [id number] [place] [address] Glucose [Mass/Vol] 186 mg/dL High 65-99 [facility] Comment on above: Performed By: #### P PB #### [facility] [address] [place] [address] Glucose [Mass/Vol] 261 mg/dL High 65-99 [facility] Comment on above: Performed By: #### P PB #### [facility] [address] [place] [address] Glucose [Mass/Vol] 162 mg/dL High 65-99 [facility] Comment on above: Performed By: #### P PB #### [address] [address] Vitamin B1,Whole Bldon 10-29 Vitamin B1,Whole Bld [facility] Comment on above: Result Comment: 222 Reference range: 70 to 180 Unit: nmol/L INTERPRETIVE INFORMATION: Vitamin B1, Whole Blood This assay measures the concentration of thiamine diphosphate (TDP), the primary active form of vitamin B1. Approximately 90 percent of vitamin B1 present in whole blood is TDP. Thiamine and thiamine monophosphate, which comprise the remaining 10 percent, are not measured. Test developed and characteristics determined by [employer]. See Compliance Statement B: [employer]/ Performed by [employer], [address] [place] [id number] [email or web address], Dominick Dobbins MD, Lab. Director Test performed by: [employer], [address] [place] [address], unless otherwise specified. Performed at the [facility] unless otherwise noted. Performed By: #### P PB #### [place] [address] B12on 10-23-2018 Cobalamin (Vitamin B12) [Mass/Vol] Normal 211-946 [facility] Comment on above: Result Comment: 862 Deficient=<174 pg/ml Eggrqudzjmwxu=540-045 pg/ml Performed at [address] [address] Performed By: #### B 12 #### [place] [address] CBC with Diffon 10-23-2018 AB IMMATURE NEUT 0.03 K/UL Normal 0.0-0.1 [facility] Comment on above: Performed By: #### C BCD #### [address] [address] ABS BASO 0.03 K/UL Normal 0.00-0.22 [facility] Comment on above: Performed By: #### C BCD #### [address] [address] ABS EOS 0.14 K/UL Normal 0-0.45 [facility] Comment on above: Performed By: #### C BCD #### [place] [address] ABS NEUTROPHILS 6.07 K/UL Normal 1.8-7.7 [facility] Comment on above: Performed By: #### C BCD #### [facility] [place] [address] [place] [address] ABS.NEUT.CALCULATED Normal [facility] Comment on above: Result Comment: 6.07 Performed at [place] [address] [place] [address] Performed By: #### C BCD #### [facility] [place] [address] [place] [address] Basophils/100 WBC (Bld) 0.30 % Normal 0-1 [facility] Comment on above: Performed By: #### C BCD #### [place] [address] [place] [address] DIFF TYPE AUTO DIFF Normal [facility] Comment on above: Performed By: #### C BCD #### [place] [address] [place] [address] Eosinophils/100 WBC (Bld) 1.60 % Normal 0-3 [facility] Comment on above: Performed By: #### C BCD #### [place] [address] [place] [address] Erythrocyte distribution width (RBC) [Ratio] 13.2 % Normal 11.7-15.0 [facility] Comment on above: Performed By: #### C BCD #### [place] [address] [place] [address] Hematocrit (Bld) [Volume fraction] 50.4 % High 41-50 [facility] Comment on above: Performed By: #### C BCD #### [place] [address] [place] [address] Hemoglobin (Bld) [Mass/Vol] 17.0 g/dL High 13.5-16.5 [facility] Comment on above: Performed By: #### C BCD #### [place] [address] [place] [address] Lymphocytes (Bld) [#/Vol] 1.88 10*3/uL Normal 1.2-3.2 [facility] Comment on above: Performed By: #### C BCD #### [place] [address] [place] [address] Lymphocytes/100 WBC (Bld) 21.50 % Normal 20-40 [facility] Comment on above: Performed By: #### C BCD #### [place] [address] [place] [address] MCH (RBC) [Entitic mass] 27.9 pg Normal 26-34 [facility] Comment on above: Performed By: #### C BCD #### [place] [address] [place] [address] MCHC (RBC) [Mass/Vol] 33.7 % Normal 31-37 [facility] Comment on above: Performed By: #### C BCD #### [place] [address] [place] [address] MCV (RBC) [Entitic vol] 82.6 fL Normal 80-100 [facility] Comment on above: Performed By: #### C BCD #### [place] [address] [place] [address] MEAN PLT VOL 9.7 CU Normal 7.0-12.6 [facility] Comment on above: Performed By: #### C BCD #### [place] [address] [place] [address] Monocytes (Bld) [#/Vol] 0.61 10*3/uL Normal 0-0.8 [facility] Comment on above: Performed By: #### C BCD #### [place] [address] [place] [address] Monocytes/100 WBC (Bld) 7.00 % Normal 0-8 [facility] Comment on above: Performed By: #### C BCD #### [place] [address] [place] [address] Neutrophils/100 WBC (Bld) 0.30 % Normal 0.0-1.0 [facility] Comment on above: Performed By: #### C BCD #### [place] [address] [place] [address] Neutrophils/100 WBC (Bld) 69.30 % Normal 50-70 [facility] Comment on above: Performed By: #### C BCD #### [place] [address] [address] [facility] [place] [place] [address] NRBC'S 0 /100 WBC Normal 0 [facility] Comment on above: Performed By: #### C BCD #### [place] [address] [place] [address] Platelets (Bld) [#/Vol] 314 10*3/uL Normal 150-450 [facility] Comment on above: Performed By: #### C BCD #### [place] [address] [place] [address] RBC (Bld) [#/Vol] 6.10 M/UL High 4.5-5.5 [facility] Comment on above: Performed By: #### C BCD #### [place] [address] [place] [address] RDW-SD 39.0 FL Normal 37.0-54.0 [facility] Comment on above: Performed By: #### C BCD #### [place] [address] [place] [address] WBC (Bld) [#/Vol] 8.8 10*3/uL Normal 4.5-11.0 [facility] Comment on above: Performed By: #### C BCD #### [place] [address] [place] [address] COMPREHENSIVE METABOLIC PANE Rui 10-23-2018 Albumin [Mass/Vol] 4.1 g/dL Normal 3.5-5.0 [facility] Comment on above: Performed By: #### C MOLD SPRAYER #### [place] [address] [place] [address] Albumin/Globulin [Mass ratio] 1.3 {ratio} Low 1.5-3.0 [facility] Comment on above: Performed By: #### C MOLD SPRAYER #### [place] [address] [place] [address] ALP [Catalytic activity/Vol] 57 U/L Normal 35-125 [facility] Comment on above: Performed By: #### C MOLD SPRAYER #### [place] [address] [place] [address] ALT [Catalytic activity/Vol] 30 U/L Normal 5-40 [facility] Comment on above: Performed By: #### C MOLD SPRAYER #### [facility] [address] [place] [address] Anion gap [Moles/Vol] 14 mmol/L Normal 0-19 [facility] Comment on above: Performed By: #### C MOLD SPRAYER #### [facility] [address] [address] AST [Catalytic activity/Vol] 20 U/L Normal 5-40 [facility] Comment on above: Performed By: #### C MOLD SPRAYER #### [facility] [address] [place] [address] Bilirubin [Mass/Vol] 0.4 mg/dL Normal 0.1-1.2 [facility] Comment on above: Performed By: #### C MOLD SPRAYER #### [facility] [address] [address] Calcium [Mass/Vol] 9.2 mg/dL Normal 8.5-10.4 [facility] Comment on above: Performed By: #### C MOLD SPRAYER #### [facility] [address] [address] Chloride [Moles/Vol] 99 mmol/L Normal 97-107 [facility] Comment on above: Performed By: #### C MOLD SPRAYER #### [facility] [address] [address] CO2 [Moles/Vol] 26 mmol/L Normal 24-31 [facility] Comment on above: Performed By: #### C MOLD SPRAYER #### [facility] [address] [address] Creatinine [Mass/Vol] 1.0 mg/dL Normal 0.4-1.6 [facility] Comment on above: Performed By: #### C MOLD SPRAYER #### [facility] [address] [address] GFR/1.73 sq M.predicted MDRD (S/P/Bld) [Vol rate/Area] Normal [facility] Comment on above: Result Comment: 87 GFR ml/min/1.73m2 Stage ----- 90 1 60-89 2 30-59 3 15-29 4 <15 5 For -Americans, multiply EGFR result by 1.210 Calculation not validated for patients under 18 years of age. Performed at [address] [place] [address] Performed By: #### C MOLD SPRAYER #### [address] [address] Globulin (S) [Mass/Vol] 3.1 g/dL Normal 1.9-3.7 [facility] Comment on above: Performed By: #### C MOLD SPRAYER #### [address] [address] Glucose [Mass/Vol] 240 mg/dL High 65-99 [facility] Comment on above: Performed By: #### C MOLD SPRAYER #### [address] [address] Potassium [Moles/Vol] 4.1 mmol/L Normal 3.4-5.1 [facility] Comment on above: Performed By: #### C MOLD SPRAYER #### [address] [address] Protein [Mass/Vol] 7.2 g/dL Normal 5.9-7.9 [facility] Comment on above: Performed By: #### C MOLD SPRAYER #### [address] [address] Sodium [Moles/Vol] 139 mmol/L Normal 133-145 [facility] Comment on above: Performed By: #### C MOLD SPRAYER #### [address] [address] Urea nitrogen [Mass/Vol] 21 mg/dL Normal 8-25 [facility] Comment on above: Performed By: #### C MOLD SPRAYER #### [address] [address] Urea nitrogen/Creatinine [Mass ratio] 21.0 RATIO Normal 8-21 [facility] Comment on above: Performed By: #### C MOLD SPRAYER #### [address] [address] FERRITINon 10-23-2018 Ferritin [Mass/Vol] Normal 30-400 [facility] Comment on above: Result Comment: 93 Performed at [address] [address] Performed By: #### F ER #### [facility] [address] [address] HEMOGLOBIN A1con 10-23-2018 HbA1c (Bld) [Mass fraction] High 4.0-6.0 [facility] Comment on above: Result Comment: 8.5 Hemoglobin A1C levels are related to mean blood glucose during the preceding 2-3 months. The relationship table below may be used as a general guide. Each 1% increase in HGB A1C is a reflection of an increase in mean glucose of approximately 30 mg/dl. Reference: Diabetes Care, volume 29, supplement 1 2005 HGB A1C ................. Approx. Mean Glucose 6% ............................... 120 mg/dl 7% ............................... 150 mg/dl 8% ............................... 180 mg/dl 9% ............................... 210 mg/dl 10% ............................... 240 mg/dl Performed at [address] [address] Performed By: #### G LYC #### [facility] [address] [address] IRON PANELon 10-23-2018 Iron [Mass/Vol] 52 ug/dL Normal 45-160 [facility] Comment on above: Performed By: #### I P #### [address] [address] TOT.IRON BIND.CAP. 297 MCG/DL Normal 228-428 [facility] Comment on above: Performed By: #### I P #### [address] [address] TRANSFERRIN % SAT. Normal 12-50 [facility] Comment on above: Result Comment: 17.5 Performed at [address] [address] Performed By: #### I P #### [address] [address] LIPID PANELon 10-23-2018 CHOL HDL RATIO Normal [facility] Comment on above: Result Comment: 4.6 According to the [place] [employer], the goal is to maintain the total cholesterol/HDL ratio at 5-to-1 or lower with an optimum ratio of 3.5-to-1. Performed at [address] [place] [address] Performed By: #### L IPD #### [address] [address] Cholesterol [Mass/Vol] 146 mg/dL Normal 133-200 [facility] Comment on above: Performed By: #### L IPD #### [address] [address] Cholesterol in HDL [Mass/Vol] Low >40 [facility] Comment on above: Result Comment: 32 National Cholesterol Education Program(NCFP)guidelines: <40 mg/dl:Low HDL-cholesterol(major risk factor for CHD) >60 mg/dl:High HDL-cholesterol(negativerisk factor for CHD) HDL-cholesterol is affected by a number of factors,e.g.,smoking, exercise,hormones,sex and age. Performed By: #### L IPD #### [address] [address] Cholesterol in LDL [Mass/Vol] 64 mg/dL Low 65-130 [facility] Comment on above: Performed By: #### L IPD #### Main Laboratory [place] [address] [place] [address] SERUM CLARITY SLIGHTLY LIPEMIC [facility] Comment on above: Performed By: #### L IPD #### [facility] [place] [address] [address] TRIGLYCERIDE G.B. 251 MG/DL High 40-150 [facility] Comment on above: Performed By: #### L IPD #### [facility] [place] [address] [place] [address] PT. PREPARATION FASTING [facility] Comment on above: Performed By: #### L IPD #### [place] [address] [place] [address] SERUM COLOR YELLOW [facility] Comment on above: Performed By: #### L IPD #### [place] [address] [place] [address] PT AND PTTon 10-23-2018 aPTT Coag (Bld) [Time] Normal 22.0-32.5 [facility] Comment on above: Result Comment: 24.8 Performed at [place] [address] [place] [address] Performed By: #### P PB #### [place] [address] [place] [address] INR Coag (PPP) [Relative time] Normal 0.86-1.16 [facility] Comment on above: Result Comment: 0.9 INR Theraputic Range: 2.0-3.5 Performed By: #### P PB #### [place] [address] [place] [address] PT Coag (PPP) [Time] 10.1 s Normal 9.3-12.7 [facility] Comment on above: Performed By: #### P PB #### [facility] [place] [address] [address] ANTICOAGULANT ASPRIN [facility] Comment on above: Performed By: #### P PB #### [place] [address] [place] [address] TSHon 10-23-2018 TSH Qn Normal 0.27-4.20 [facility] Comment on above: Result Comment: 1.00 Performed at [address] [place] [address] Performed By: #### T SHR #### [facility] [address] [address] VITAMIN D 25 HYDROXYon 10-23 VITAMIN D 25 HYDROXY Normal 31-100 [facility] Comment on above: Result Comment: 76 RECHECKED DILUTED Performed at [address] [address] Performed By: #### V ITD #### [facility] [address] [address] Office Visit: [facility]: Adriana 5th digi t pain, wart tx with cryoon 06-29-2017 Documentation of current medications (procedure) Done Invalid Interpretation Code [facility] Work Phone: Fall risk assessment No Invalid Interpretation Code [facility] Work Phone: Protein mass conc Done Invalid Interpretation Code [facility] Work Phone: Tobacco smoking status NHIS Never Invalid Interpretation Code [facility] Work Phone: Tobacco smoking status [facility] Never smoker Invalid Interpretation Code [facility] Work Phone: Tobacco use [facility] Never smoker Invalid Interpretation Code [facility] Work Phone: Office Visit: [facility] wellness e xamon 06-20-2017 Documentation of current medications (procedure) Done Invalid Interpretation Code [facility] Work Phone: Fall risk assessment No Invalid Interpretation Code [facility] Work Phone: Tobacco smoking status NHIS Never Invalid Interpretation Code [facility] Work Phone: Tobacco use [facility] Never smoker Invalid Interpretation Code [facility] Work Phone: Vital Signs Date Time Vital Sign Value Performing Clinician Leia espinoza 06-07-2022 08:34-0400 Body height 175.[address] Walt Marinelli Work Phone: Work Phone: 06-07-2022 08:34-0400 Body mass index (BMI) [Ratio] 32.8 kg/m2 Dr. Walt Marinelli Work Phone: Work Phone: 06-07-2022 08:34-0400 Body weight 100.[address] Walt Marinelli Work Phone: Work Phone: 05-09-2022 15:46-0400 Body mass index (BMI) [Ratio] 33.1 kg/m2 Dr. Walt Marinelli Work Phone: Work Phone: 05-09-2022 15:46-0400 Body temperature 96.9 [degF] Dr. Walt Marinelli Work Phone: Work Phone: 05-09-2022 15:46-0400 Body weight 101.[address] Walt Marinelli Work Phone: Work Phone: 05-09-2022 15:46-0400 Diastolic blood pressure 86 mm[Hg] Dr. Walt Marinelli Work Phone: Work Phone: 05-09-2022 15:46-0400 Heart rate 82 /min Dr. Walt Marinelli Work Phone: Work Phone: 05-09-2022 15:46-0400 Respiratory rate 18 /min Dr. Walt Marinelli Work Phone: Work Phone: 05-09-2022 15:46-0400 SaO2% (BldA) [Mass fraction] 96 % Dr. Walt Marinelli Work Phone: Work Phone: 05-09-2022 15:46-0400 Systolic blood pressure 134 mm[Hg] Dr. Walt Marinelli Work Phone: Work Phone: 03-18-2022 16:08-0400 Body temperature 98.2 [degF] Dr. Walt Marinelli Work Phone: Work Phone: 03-18-2022 16:08-0400 Diastolic blood pressure 77 mm[Hg] Dr. Walt Marinelli Work Phone: Work Phone: 03-18-2022 16:08-0400 Heart rate 64 /min Dr. Walt Marinelli Work Phone: Work Phone: 03-18-2022 16:08-0400 Respiratory rate 15 /min Dr. Walt Marinelli Work Phone: Work Phone: 03-18-2022 16:08-0400 SaO2% (BldA) [Mass fraction] 98 % Dr. Walt Marinelli Work Phone: Work Phone: 03-18-2022 16:08-0400 Systolic blood pressure 129 mm[Hg] Dr. Walt Marinelli Work Phone: Work Phone: 03-18-2022 12:19-0400 Body height 175.[address] Walt Marinelli Work Phone: Work Phone: 03-18-2022 12:19-0400 Body mass index (BMI) [Ratio] 31.8 kg/m2 Dr. Walt Marinelli Work Phone: Work Phone: 03-18-2022 12:19-0400 Body weight 97.[address] Walt Marinelli Work Phone: Work Phone: 02-01-2022 10:58-0400 Body mass index (BMI) [Ratio] 31.7 kg/m2 Dr. Walt Marinelli Work Phone: Work Phone: 02-01-2022 10:58-0400 Body temperature 97.5 [degF] Dr. Walt Marinelli Work Phone: Work Phone: 02-01-2022 10:58-0400 Body weight 97.[address] Walt Marinelli Work Phone: Work Phone: 02-01-2022 10:58-0400 Diastolic blood pressure 76 mm[Hg] Dr. Walt Mairnelli Work Phone: Work Phone: 02-01-2022 10:58-0400 Heart rate 103 /min Dr. Walt Marinelli Work Phone: Work Phone: 02-01-2022 10:58-0400 Respiratory rate 16 /min Dr. Walt Marinelli Work Phone: Work Phone: 02-01-2022 10:58-0400 SaO2% (BldA) [Mass fraction] 98 % Dr. Walt Marinelli Work Phone: Work Phone: 02-01-2022 10:58-0400 Systolic blood pressure 132 mm[Hg] Dr. Walt Marinelli Work Phone: Work Phone: 02-01-2022 10:58-0400 Body height 175.[address] Walt Marinelli Work Phone: Work Phone: 02-01-2022 10:58-0400 Body mass index (BMI) [Ratio] 31.7 kg/m2 Dr. Walt Marinelli Work Phone: Work Phone: 02-01-2022 10:58-0400 Body temperature 97.5 [degF] Dr. Walt Marinelli Work Phone: Work Phone: 02-01-2022 10:58-0400 Body weight 97.[address] Walt Marinelli Work Phone: Work Phone: 02-01-2022 10:58-0400 Diastolic blood pressure 76 mm[Hg] Dr. Walt Marinelli Work Phone: Work Phone: 02-01-2022 10:58-0400 Heart rate 103 /min Dr. Walt Marinelli Work Phone: Work Phone: 02-01-2022 10:58-0400 Respiratory rate 16 /min Dr. Walt Marinelli Work Phone: Work Phone: 02-01-2022 10:58-0400 SaO2% (BldA) [Mass fraction] 98 % Dr. Walt Marinelli Work Phone: Work Phone: 02-01-2022 10:58-0400 Systolic blood pressure 132 mm[Hg] Dr. Walt Marinelli Work Phone: Work Phone: 06-29-2017 16:07-0400 BMI (Body Mass Index) 37.32 kg/m2 Michael ISLAS [facility] Work Phone: 06-29-2017 16:07-0400 Body Temperature 97.6 [degF] Michael ISLAS [facility] Work Phone: 06-29-2017 16:07-0400 BP Diastolic 88 mm[Hg] Michael ISLAS [facility] Work Phone: 06-29-2017 16:07-0400 BP Systolic 122 mm[Hg] Michael ISLAS [facility] Work Phone: 06-29-2017 16:07-0400 Height 176.53 cm Michael ISLAS [facility] Work Phone: 06-29-2017 16:07-0400 Pulse (Heart Rate) 95 /min Michael ISLAS [facility] Work Phone: 06-29-2017 16:07-0400 Respiratory Rate 12 /min Michael ISLAS [facility] Work Phone: 06-29-2017 16:07-0400 Weight 116.3 kg Michael ISLAS [facility] Work Phone: 06-20-2017 14:12-0400 BMI (Body Mass Index) 36.82 kg/m2 Deepika Portillo LPN [facility] No w Clinic Work Phone: 06-20-2017 14:12-0400 Body Temperature 97.4 [degF] Deepika Portillo LPN [facility] Work Phone: 06-20-2017 14:12-0400 BP Diastolic 72 mm[Hg] Deepika Portillo LPN [facility] Work Phone: 06-20-2017 14:12-0400 BP Systolic 118 mm[Hg] Deepika Portillo LPN [facility] Work Phone: 06-20-2017 14:12-0400 Height 176.53 cm Deepika Portillo LPN [facility] Work Phone: 06-20-2017 14:12-0400 Pulse (Heart Rate) 97 /min Deepika Portillo LPN [facility] Work Phone: 06-20-2017 14:12-0400 Respiratory Rate 15 /min Deepika Portillo LPN [facility] Work Phone: 06-20-2017 14:12-0400 Weight 114.76 kg Deepika Portillo LPN [facility] Work Phone: 10-24-2016 09:14-0500 BSA (Body Surface Area) 2.23 m2 Deepika Portillo LPN [facility] Work Phone: Encounters Encounter Date Encounter Type Care Provider Facility Start: 02-03-2025 End: 02-03-2025 ambulatory Marcelo Paz Facility:[facility] Start: 11-14-2024 End: 11-14-2024 ambulatory Walt Marinelli Facility: Start: 10-10-2024 End: 10-10-2024 ambulatory Garrett Paz Facility:[facility] Start: 09-15-2024 ambulatory Walt Marinelli [facility] Start: 08-05-2024 End: 08-05-2024 ambulatory Walt Isis Facility:[facility] Start: 06-06-2024 End: 06-06-2024 ambulatory Walt Marinelli Facility: Start: 05-27-2024 End: 05-27-2024 ambulatory Marcelo ISLAS Facility:[facility] Start: 04-28-2024 End: 04-28-2024 ambulatory Walt Marinelli Facility:[facility] Start: 04-23-2024 End: 04-23-2024 ambulatory Davidson Sanchez Facility:[facility] Start: 04-23-2024 End: 04-23-2024 ambulatory Walt Marinelli Facility: Start: 04-07-2024 End: 04-07-2024 ambulatory Mae Bernardo Facility:[facility] Start: 08-15-2022 End: 08-15-[address] Walt Marinelli Work Phone: [facility] Start: 08-15-2022 Non-patient / Non-visit Dr. Walt Marinelli Work Phone: [facility] Start: 08-08-2022 End: 08-08-[address] Walt Marinelli Work Phone: Work Phone: Start: 08-08-2022 End: 08-08-[address] Walt Marinelli Work Phone: [facility] Start: 07-13-2022 End: 07-13-[address] Walt Marinelli Work Phone: [facility] Start: 06-21-2022 End: 06-21-[address] Walt Marinelli Work Phone: Work Phone: Start: 06-21-2022 End: 06-21-[address] Walt Marinelli Work Phone: [facility] Start: 06-21-2022 End: 06-21-[address] Walt Marinelli Work Phone: [facility] Start: 06-15-2022 End: 06-15-[address] Walt Marinelli Work Phone: [facility] Start: 06-07-2022 End: 06-07-[address] Walt Marinelli Work Phone: [facility] Start: 05-09-2022 End: 05-09-[address] Walt Marinelli Work Phone: [facility] Start: 04-18-2022 End: 04-18-[address] Walt Marinelli Work Phone: [facility] Start: 03-28-2022 End: 03-28-[address] Walt Marinelli Work Phone: [facility] Start: 03-18-2022 End: 03-18-2022 Emergency department patient visit Dr. Wlat Marinelli Work Phone: -Emergency Department Start: 02-21-2022 End: 02-21-[address] Walt Marinelli Work Phone: [facility] Start: 02-01-2022 End: 02-01-[address] Walt Marinelli Work Phone: [facility] Procedures Date Procedure Procedure Detail Performing Clinician Start: 06-15-2022 MRI of cervical spine Daksha Marinelli Work Phone: Start: 04-18-2022 MRI of cervical spine Daksha Marinelli Work Phone: Start: 03-28-2022 X-ray of cervical spine Dr. Walt Marinelli Work Phone: Start: 03-18-2022 CT of abdomen and pe lvis without contrast Dr. Walt Marinelli Work Phone: Start: 06-20-2017 End: 06-20-2017 [facility] Marcelo Dubois A Work Phone: Start: 06-20-2017 End: 06-20-2017 [facility] Marcelo Dubois A Work Phone: Start: 10-24-2016 End: 10-24-2016 [place]oo influenza Marcelo ISLAS Work Phone: Start: 10-24-2016 End: 10-24-2016 Influenza assay w/optic Marcelo Dubois A Work Phone: Nasal Screen MRSA/MSSA Dr. Sherly Marinelli Work Phone: Plan of Treatment Date Care Activity Detail Author Start: 06-29-2017 End: 06-29-2017 Appointment Appointment [facility] Work Phone: Start: 06-29-2017 End: 06-29-2017 Podiatry Referral Podiatry Referral [facility] Work Phone: Start: 06-20-2017 End: 06-20-2017 Appointment Appointment [facility] Work Phone: Patient Education [facility] Work Phone: Patient referral [facility] Work Phone: Immunizations Immunization Date Immunization Notes Care Provider Bridget rivera 07-03-2022 influenza, seasonal, injectable Dr. Walt Marinelli Work Phone: Work Phone: 07-06-2021 influenza, seasonal, injectable Dr. Walt Marinelli Work Phone: Work Phone: 08-02-2020 influenza, seasonal, injectable Dr. Walt Marinelli Work Phone: Work Phone: 06-02-2020 tetanus toxoid, redu amer[place] diphtheria toxoid, and acellular pertussis vaccine, adsorbed Dr. Walt Marinelli Work Phone: Work Phone: 07-09-2019 influenza, seasonal, injectable Dr. Walt Marinelli Work Phone: Work Phone: 07-03-2018 influenza, seasonal, injectable Dr. Walt Marinelli Work Phone: Work Phone: 08-09-2017 influenza, seasonal, injectable Dr. Walt Marinelli Work Phone: Work Phone: 06-22-2016 influenza, seasonal, injectable Dr. Walt Marinelli Work Phone: Work Phone: 07-07-2015 influenza, seasonal, injectable Dr. Walt Marinelli Work Phone: Work Phone: 07-02-2014 influenza, seasonal, injectable Dr. Walt Marinelli Work Phone: Work Phone: Payers Date Payer Category Payer Self-pay [id number] 2023 Unknown [id number] 2016 Unknown [facility] [id number] Unknown [id number] 2ada Unknown [id number] Unknown [id number] Unknown [id number] Unknown [id number] Unknown [id number] Unknown [id number] Unknown [id number] Unknown [id number] Unknown [id number] Unknown [id number] Unknown [id number] Social History Date Type Detail Facility Start: 02-01-2022 End: 08-15-2022 Tobacco smoking status [facility] Unknown if ever smoked Work Phone: Start: 02-09-2021 [facility] Work Phone: Start: 02-09-2021 None [facility] Work Phone: Start: 06-02-2020 With Family [facility] Work Phone: Start: 02-09-2021 Non-smoker [facility] Work Phone: Start: 1975 Sex Assigned At Male [facility] Work Phone: Chief complaint+Reason for visit Narrative Note Date & Type Note Facility Chief complaint+Reason for visit Narrative Reason for Visit Encounter for screening for COVID-19 Work Phone: Evaluation note Note Date & Type Note Facility Evaluation note Diagnosis Onset Date Encounter for screening for COVID-19 [facility] Work Phone: Evaluation note Note Date & Type Note Facility Evaluation note Diagnosis Onset Date Diabetes acute Presence of insulin pump chr onic Herniated nucleus pulposus, C5-6 left acute Herniated nucleus pulposus, C6-7 left acute Herniated nucleus pulposus, C5-6 left acute Herniated nucleus pulposus, C6-7 left acute Work Phone: Evaluation note Note Date & Type Note Facility Evaluation note Diagnosis Onset Date Diabetes acute Presence of insulin pump chr onic Herniated nucleus pulposus, C5-6 left acute Herniated nucleus pulposus, C6-7 left acute Herniated nucleus pulposus, C5-6 left acute Herniated nucleus pulposus, C6-7 left acute Herniated nucleus pulposus, C5-6 left acute Herniated nucleus pulposus, C6-7 left acute Work Phone: Summary Purpose Family History No Family History Records Found Relationship Condition Age at Onset Recorded Date/T jose mother Hypertension Unknown father Diabetes mellitus Unknown Advance Directives No Advanced Directives Records Found Advance Directive Response Recorded Date/ Time Living Will No February 09, 2021 8 :07pm Power of Staff Reporter No February 09, 2021 8:07pm Advance Directive Response Recorded Date/ Time Living Will No March 18, 2022 12:26pm Power of Staff Reporter No March 18 12:26pm Advance Directive Response Recorded Date/ Time Living Will No August 01 3:53pm Power of Staff Reporter No August 01, 2022 3:53pm Chief Complaint and Reason for Visit Chief Complaint COVID TEST/SYMPTOMAT IC FLANK PAIN Reason for Visit Encounter for screen ing for COVID-19 Chief Complaint COVID TEST/SYMPTOMAT IC FLANK PAIN NECK PAIN Reason for Visit Encounter for screen ing for COVID-19 Chief Complaint COVID TEST/SYMPTOMAT IC FLANK PAIN NECK PAIN PAIN, RADICULOPATHY Reason for Visit Encounter for screen ing for COVID-19 Chief Complaint FLANK PAIN NECK PAIN PAIN, RADICULOPATHY DIABETES FU, CANCELLED LAST APPOINTMENT COMPRESSION C5-C6 LUMBAR PAIN CERVICAL SPINE EORDER Reason for Visit Diabetes Presence of insulin pump Herniated nucleus pulposus, C5-6 left Herniated nucleus pulposus, C6-7 left Herniated nucleus pulposus, C5-6 left Herniated nucleus pulposus, C6-7 left Chief Complaint DIABETES FU, CANCELL ED LAST APPOINTMENT COMPRESSION C5-C6 LUMBAR PAIN CERVICAL SPINE EORDER EORDER EORDER ANTERIOR CERVICAL DISCECTOMY cervical spine Reason for Visit Diabetes Presence of insulin pump Herniated nucleus pulposus, C5-6 left Herniated nucleus pulposus, C6-7 left Herniated nucleus pulposus, C5-6 left Herniated nucleus pulposus, C6-7 left Herniated nucleus pulposus, C5-6 left Herniated nucleus pulposus, C6-7 left Additional Source Comments (unrecognized sect ion and content) No Status Records FoundNo Status Records Found INFORMATION SOURCE (unrecogn ized section and content) DATE CREATED AUTHOR 05/24/2019 [facility] DATE CREATED AUTHOR AUTHOR'S ORGANIZ ATION 02/04/2025 [facility] Goals (unrecognized section and content) Goals may be documented in a n alternate sectionGoals may be documented in an alternate sectionGoals may be documented in an alternate sectionGoals may be documented in an alternate sectionGoals may be documented in an alternate sectionGoals may be documented in an alternate section FOR RECORDS PERTAINING TO PATIENTS WHO ARE [...] BE BASED ON THE PRIMARY CLINICAL RECORDS. [facility] [employer] [facility]. provides no warranty or guarantee of the accuracy or completeness of information in this document.
== END | disposition home or self-care (01) ==
LOC: MFPLAB 16:38
PROVIDERS: PCP Family Medicine; Referring Provider Family Medicine; Visit Provider Family Medicine
DX: E11.9 Type 2 diabetes mellitus without complications (principal); E29.1 Testicular hypofunction
CPT/HCPCS: 36415; 80053; 80061; 84403; 85025

== ENCOUNTER → 2025-07-30 | Outpatient (CLI) | payer OTHER, SELFPAY ==
[2025-07-30 10:26] LABS: Hematocrit 40.8 % (40-54); Hemoglobin 14.0 g/dL (13.0-16.5); Immature Granulocytes Count 0.010 X10^3/uL (0.0-0.0); Mean Corp Hgb Conc 34.3 g/dL (32-36); Mean Corpuscular Volume 85.7 fL (80-94); Mean Platelet Vol. 9.7 fl (6.2-12.0); NRBC Flagged by Analyzer 0 % (0-5); Platelet Count 235 K/mm3 (150-450); RBC Distribution Width CV 12.5 % (11.6-14.6); RBC Distribution Width SD 39.2 fl (35.1-43.9); Red Blood Count 4.76 M/mm3 (4.6-6.2); White Blood Count 3.6 K/mm3 (4.4-11.0)
[2025-07-30 13:38] LABS: AST(SGOT) 29 U/L (<=37); Alanine Aminotransfer ALT/SGPT 26 U/L (<=46); Albumin, Serum 4.2 g/dL (3.5-5.0); Alkaline Phosphatase 54 U/L (40-129); Anion Gap 12 (5-15); BUN 17 mg/dL (4-19); BUN/Creat Ratio 17.5 RATIO (10-20); Calcium,Total 9.4 mg/dL (7.6-11.0); Carbon Dioxide 22.3 mmol/L (21.0-32.0); Chloride 104 mmol/L (98-108); Cholesterol 184 mg/dL (<=200); Globulin 3.0 g/dL (2.2-4.2); Glucose 258 mg/dL (70-99); Low Density Lipoprotein Calc. 89 mg/dL; PSA,Total- Diagnostic 1.49 ng/mL (0.00-4.00); Potassium 5.0 mmol/L (3.3-5.1); Triglycerides 137 mg/dL; Very Low Density Lipoprotein 27 mg/dL (5-40); cholesterol:hdl ratio screen 2.57
== END | disposition home or self-care (01) ==
LOC: MFPLAB 09:35
PROVIDERS: PCP Family Medicine; Visit Provider Family Medicine
DX: E11.9 Type 2 diabetes mellitus without complications (principal); E29.1 Testicular hypofunction; I10 Essential (primary) hypertension
CPT/HCPCS: 36415; 80053; 80061; 83036; 84153; 84403; 85025

== ENCOUNTER → 2025-08-26 | Outpatient (CLI) | payer OTHER, SELFPAY ==
--- NOTE | 2025-08-26 14:33 | NEURO ---
NCS and/or EMG Patient Report Ordering Doctor: Cesar Sinha DATE OF SERVICE: 08/26/25 Dawood presents with complaints of numbness and tingling in both hands primarily in digits 1-3. He has a history of neck surgery but denies neck pain at this time. Electrodiagnostic findings: Left median motor nerve demonstrates prolonged latency with normal amplitude and reduced conduction velocity. Right median motor nerve demonstrates prolonged distal latency with normal amplitude and reduced conduction velocity. Ulnar motor response within normal limits bilaterally. Prolonged median F?wave bilaterally. Prolonged median sensory latency at the wrist bilaterally with reduced conduction velocities. Needle EMG testing was performed in the upper limbs. All muscles tested showed no evidence of denervation with normal motor unit action potentials. Electrodiagnostic impression: This is an abnormal study in the upper limbs. 1. Electrodiagnostic findings suggestive of bilateral median mononeuropathy. This consistent with a moderate bilateral carpal tunnel syndrome. Findings have progressed since previous study performed on October 31, 2023. 2. No electrodiagnostic evidence is noted for cervical radiculopathy Multi Select Codes Neurology Neurology Interp Codes: 08651-93 Musc test done w/n test comp (interp) (2) and 30311-10 Nrv cndj test 9-10 studies (interp)
== END | disposition home or self-care (01) ==
LOC: PSN 13:30
PROVIDERS: PCP Family Medicine; Referring Provider Physician Assistant; Visit Provider Physician Assistant
DX: G56.03 Carpal tunnel syndrome, bilateral upper limbs (principal)
CPT/HCPCS: 95886; 95911